=== PATIENT | male | born 1970 | race Caucasian/White ===

== ENCOUNTER 2017-11-17 13:12 | Inpatient (IN) | payer OTHER ==
[2017-11-17 14:56] VITALS: BMI 20.9
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
[2017-11-17] MEDS ORDERED: MAGNESIUM CITRATE 300 ML BOTTLE PO PRN (20:42)
[2017-11-17] MEDS ORDERED: P-EPHED 60MG/TRIPROLIDI 2.5MG TABLET PO PRN (20:42)
[2017-11-17] MEDS ORDERED: MAG HYDROX/AL HYDROX/SIMETH 30 ML UNIT-DOSE CUP PO PRN (20:42)
[2017-11-17] MEDS ORDERED: LOPERAMIDE HCL 2 MG CAPSULE PO PRN (20:42)
[2017-11-17] MEDS ORDERED: ALBUTEROL SO4 2.5/IPRATROPIUM 0.5 INH SOL 3 ML VIAL.NEB. NEB PRN (20:42)
[2017-11-17] MEDS ORDERED: MENTHOL/PHENOL 1 EACH UD MM PRN (20:42)
[2017-11-17] MEDS ORDERED: MAGNESIUM HYDROX 2400MG/30ML ORAL SUSPENSION 30 ML CUP PO PRN (20:42)
[2017-11-17] MEDS ORDERED: chlordiazePOXIDE HCL 25 MG CAPSULE PO PRN (20:42)
[2017-11-17] MEDS ORDERED: NICOTINE POLACRILEX 4 MG GUM BC PRN (20:42)
[2017-11-17] MEDS ORDERED: chlordiazePOXIDE HCL 25 MG CAPSULE PO ONE (20:42)
[2017-11-17] MEDS ORDERED: hydrOXYzine PAMOATE 50 MG CAPSULE (FP) PO PRN (20:42)
[2017-11-17] MEDS ORDERED: METHADONE HCL 10 MG TABLET (FOR DETOX USE ONLY) PO ONE ×2 (20:42→23:00)
[2017-11-17] MEDS ORDERED: MELATONIN 5 MG TABLETS PO PRN (22:00)
[2017-11-17] MEDS: THIAMINE HCL 100 MG TABLET (FP) PO SCH (22:42)
[2017-11-17] MEDS: chlordiazePOXIDE HCL 25 MG CAPSULE PO SCH (22:43)
[2017-11-17] MEDS: DIVALPROEX SODIUM 500 MG TABLET E.C. PO SCH (22:43)
[2017-11-17] MEDS: amLODIPine BESYLATE 5 MG TABLET (FP) PO SCH (22:43)
[2017-11-17] MEDS: IBUPROFEN 400 MG TABLET (FP) PO PRN (22:44)
[2017-11-18] MEDS: chlordiazePOXIDE HCL 25 MG CAPSULE PO SCH ×4 (04:49→23:21)
[2017-11-18] MEDS: IBUPROFEN 400 MG TABLET (FP) PO PRN ×3 (04:50→19:01)
[2017-11-18 05:14] LABS: URINE APPEARANCE CLEAR; URINE BILIRUBIN NEGATIVE (<2.0 mg/dL); URINE COLOR YELLOW; URINE GLUCOSE (UA) NEGATIVE (NEGATIVE); URINE KETONE 1+ (NEGATIVE); URINE LEUK ESTERASE NEGATIVE (NEGATIVE); URINE NITRITE NEGATIVE (NEGATIVE); URINE PROTEIN NEGATIVE (NEGATIVE); URINE UROBILINOGEN NEGATIVE mg/dL (0.2-1.0)
[2017-11-18 09:53] LABS: ALBUMIN 3.4 g/dl (3.4-5.0); ANION GAP 4 (8-16); CALCIUM 8.5 mg/dL (8.5-10.1); CHLORIDE 109 mmol/L (98-107); CO2 31 mmol/L (21-32); GLUCOSE,RANDOM 81 mg/dL (74-106); POTASSIUM 4.4 mmol/L (3.5-5.1); SODIUM 144 mmol/L (136-145)
[2017-11-18 09:56] LABS: HEMATOCRIT 39.8 % (35.4-49); HEMOGLOBIN 13.7 GM/dL (11.7-16.9); MCH 31.7 pg (25.7-33.7); MCHC 34.4 g/dl (32.0-35.9); MEAN CELL VOLUME 92.1 fl (80-96); MEAN PLT VOLUME 9.2 fl (7.5-11.1); PLATELET COUNT 211 K/MM3 (134-434); RBC 4.32 M/mm3 (4.00-5.60); RDW 13.2 % (11.9-15.9); WHITE BLOOD COUNT 5.8 K/mm3 (4.0-10.0)
[2017-11-18 09:58] LABS: ALK PHOS 73 U/L (45-117); BILIRUBIN,TOTAL 0.2 mg/dL (0.2-1.0); BLOOD UREA NITROGEN 18 mg/dL (7-18); CREATININE 0.9 mg/dL (0.7-1.3); SGOT/AST 11 U/L (15-37); SGPT/ALT 16 U/L (12-78); TOT PROT 5.9 g/dl (6.4-8.2)
[2017-11-18] MEDS ORDERED: METHADONE HCL 10 MG TABLET (FOR DETOX USE ONLY) PO SCH (10:00)
[2017-11-18] MEDS: DIVALPROEX SODIUM 500 MG TABLET E.C. PO SCH ×2 (10:18→22:40)
[2017-11-18] MEDS: amLODIPine BESYLATE 5 MG TABLET (FP) PO SCH ×2 (10:18→22:41)
[2017-11-18] MEDS: NICOTINE 21 MG/24 HOURS TOPICAL PATCH TD SCH (10:19)
[2017-11-18] MEDS: PRENATAL VITAMINS W/ FOLIC ACID TABLET (FP) PO SCH (10:19)
--- NOTE | 2017-11-18 11:47 | PN ---
[facility] Progress Note Note: s/p witnessed fall by staff. Patient c/o of vertigo, and felt his leg buckle and landed on his right knee. Vital Signs Temperature 97.9 F 11/18/17 11:38 Pulse Rate 70 11/18/17 11:38 Respiratory Rate 18 11/18/17 11:38 Blood Pressure 100/60 11/18/17 11:38 O2 Sat by Pulse Oximetry (%) Patient AOX3 s1, s3, no adventitious breath sounds s1 s2 no JVD skin intact, no erythema or lesion Full ROM, + tenderness on right patella, no erythema or joint effusion, ambulating in the unit with cane - witnessed fall Plan: fall protocol #2 Increase fluids xray b/t knee Ibuprofen PRN for pain continue to monitor
--- NOTE | 2017-11-18 12:49 | EKG ---
Test Reason : Blood Pressure : / mmHG Vent. Rate : 061 BPM Atrial Rate : 061 BPM P-R Int : 110 ms QRS Dur : 104 ms QT Int : 402 ms P-R-T Axes : 025 067 054 degrees QTc Int : 404 ms SINUS RHYTHM WITH SHORT MI EARLY REPOLARIZATION OTHERWISE NORMAL ECG WHEN COMPARED WITH ECG OF 17-NOV-2017 21:53, NO SIGNIFICANT CHANGE WAS FOUND Confirmed by JACQUES PALMA MD ([id number]) on 11/18/2017 12:49:06 PM Referred By: Confirmed By:JACQUES PALMA MD
--- NOTE | 2017-11-18 12:50 | EKG ---
Test Reason : Blood Pressure : / mmHG Vent. Rate : 069 BPM Atrial Rate : 069 BPM P-R Int : 102 ms QRS Dur : 092 ms QT Int : 372 ms P-R-T Axes : 015 069 059 degrees QTc Int : 398 ms SINUS RHYTHM WITH SHORT MN MODERATE VOLTAGE CRITERIA FOR LVH, MAY BE NORMAL VARIANT ST ELEVATION, CONSIDER EARLY REPOLARIZATION BORDERLINE ECG NO PREVIOUS ECGS AVAILABLE Confirmed by MINERVA PIERCE, JACQUES ([id number]) on 11/18/2017 12:50:14 PM Referred By: Confirmed By:JACQUES PALMA MD
--- NOTE | 2017-11-18 15:07 | CONSULT ---
[facility] Psychiatric Consult - Data Date of interview: 11/18/17 Admission source: [facility] Identifying data: This is 47 years old male, ambulating with cane, , father of six, homeless, on SSD with history of nicotine, alcohol, crack / cocaine, heroin (paranasal) dependence is here reporting withdrawal symptoms and seeking detox, this is one of multiple admissions. Patient has mutiple medical issues. Substance Abuse History: Smoking history: Current every day smoker. Have you smoked in the past 12 months: Yes. Aproximately how many cigarettes per day: 60. Hx Chewing Tobacco Use: No. Initiated information on smoking cessation: Yes. 'Breaking Loose' booklet given: 11/17/17. - Substance & Tx. History. Hx Alcohol Use: Yes. Hx Substance Use: Yes. Substance Use Type: Alcohol, Cocaine , Heroin. Hx Substance Use Treatment: Yes ( Last detox at [facility] six months ago). - Substances Abused. Alcohol. Route: Oral. Frequency: Daily. Amount used: 2 pints vodka. Age of first use: 11. Date of Last Use: 11/16/17. Heroin. Route: Inhalation. Frequency: Daily. Amount used: 30-40 bags. Age of first use: 11. Date of Last Use: 11/16/17. Cocaine. Route: Smoking. Frequency: Daily. Amount used: $100-&500. Age of first use: 11. Date of Last Use: 11/16/17 Medical History: Asthma, DM-II, Epilepsy, HTN Psychiatric History: As per computer pavel has history of Schizophrenia, Bipolar Disorder, reports history of psychiatric hospitalizations, does not remember where and when, reports currently stable on: Depakote 500mg po bid. Prozac 20mg poqd. Benzthropine 1mg po bid. Risperdal 1mg po bid. Patient reports suicidal attaempt at age [age] years old by supeficially cutting his wrist , no stitches applyed, reports no suicidal history since then. Physical/Sexual Abuse/Trauma History: Denies Additional Comment: Depakote 500mg po bid. Prozac 20mg poqd. Benzthropine 1mg po bid. Risperdal 1mg po bid Mental Status Exam - Mental Status Exam Alert and Oriented to: Person Cognitive Function: Fair Patient Appearance: Unkempt Mood: Apprehensive Affect: Mood Congruent Patient Behavior: Cooperative Speech Pattern: Appropriate Voice Loudness: Mildly Soft/Quiet Thought Process: Circumstantial, Goal Oriented Thought Disorder: Being Controlled Hallucinations: Denies Suicidal Ideation: Denies Homicidal Ideation: Denies Insight/Judgement: Fair Sleep: Difficulty falling asleep Appetite: Weight gain Muscle strength/Tone: Mild Hypotonicity Gait/Station: Shuffling Additional Comments: Depakote 500mg po bid. Prozac 20mg poqd. Benzthropine 1mg po bid. Risperdal 1mg po bid Psychiatric Findings - Problem List ([place] 1, 2,3) (1) Bipolar disorder with psychotic features Current Visit: Yes Status: Acute (2) Schizophrenia Current Visit: Yes Status: Acute (3) Alcohol dependence Current Visit: Yes Status: Acute (4) Asthma Current Visit: Yes Status: Acute (5) Cocaine dependence Current Visit: Yes Status: Acute (6) Nicotine dependence Current Visit: Yes Status: Acute Qualifiers: Nicotine product type: cigarettes (7) Opioid dependence with withdrawal Current Visit: Yes Status: Acute (8) Diabetes mellitus Current Visit: Yes Status: Chronic Qualifiers: Diabetes mellitus type: type 2 Diabetes mellitus shelter insulin use: unspecified shelter insulin use status (9) Epilepsy Current Visit: Yes Status: Chronic Qualifiers: Epilepsy type: unspecified (10) Hypertension Current Visit: Yes Status: Chronic Qualifiers: Hypertension type: essential hypertension Qualified Code(s): I10 - Essential (primary) hypertension - Initial Treatment Plan Initial Treatment Plan: Depakote 500mg po bid. Prozac 20mg poqd. Benzthropine 1mg po bid. Risperdal 1mg po bid
[2017-11-18] MEDS: risperiDONE 1 MG TABLET (FP) PO SCH ×2 (15:19→22:41)
[2017-11-18] MEDS: FLUoxetine HCL 20 MG CAPSULE (FP) PO SCH (15:19)
--- NOTE | 2017-11-18 16:11 | PN ---
S CIWA - CIWA Score Nausea/Vomitin Muscle Tremors: 2 Anxiety: 3 Agitation: 3 Paroxysmal Sweats: 2 Orientation: 0-Oriented Tacttile Disturbances: 0-None Auditory Disturbances: 0-None Visual Disturbances: 1-Very Mild Sensitivity Headache: 0-None Present CIWA-Ar Total Score: 13 BHS Progress Note (SOAP) Subjective: interrupted sleep, body aches, chills, sweats Objective: 11/18/17 16:10 Vital Signs Temperature 97.4 F L 11/18/17 15:38 Pulse Rate 64 11/18/17 15:38 Respiratory Rate 18 11/18/17 15:38 Blood Pressure 108/74 11/18/17 15:38 O2 Sat by Pulse Oximetry (%) Laboratory Last Values WBC 5.8 K/mm3 (4.0-10.0) 11/18/17 07:30 RBC 4.32 M/mm3 (4.00-5.60) 11/18/17 07:30 Hgb 13.7 GM/dL (11.7-16.9) 11/18/17 07:30 Hct 39.8 % (35.4-49) 11/18/17 07:30 MCV 92.1 fl (80-96) 11/18/17 07:30 MCH 31.7 pg (25.7-33.7) 11/18/17 07:30 MCHC 34.4 g/dl (32.0-35.9) 11/18/17 07:30 RDW 13.2 % (11.9-15.9) 11/18/17 07:30 Plt Count 211 K/MM3 (134-434) 11/18/17 07:30 MPV 9.2 fl (7.5-11.1) 11/18/17 07:30 Sodium 144 mmol/L (136-145) 11/18/17 07:30 Potassium 4.4 mmol/L (3.5-5.1) 11/18/17 07:30 Chloride 109 mmol/L (98-107) H 11/18/17 07:30 Carbon Dioxide 31 mmol/L (21-32) 11/18/17 07:30 Anion Gap 4 (8-16) L 11/18/17 07:30 BUN 18 mg/dL (7-18) 11/18/17 07:30 Creatinine 0.9 mg/dL (0.7-1.3) 11/18/17 07:30 Creat Clearance w eGFR > 60 (>60) 11/18/17 07:30 POC Glucometer 92 UNITS (80-120) 11/18/17 11:50 Random Glucose 81 mg/dL (74-106) 11/18/17 07:30 Calcium 8.5 mg/dL (8.5-10.1) 11/18/17 07:30 Total Bilirubin 0.2 mg/dL (0.2-1.0) 11/18/17 07:30 AST 11 U/L (15-37) L 11/18/17 07:30 ALT 16 U/L (12-78) 11/18/17 07:30 Alkaline Phosphatase 73 U/L (45-117) 11/18/17 07:30 Total Protein 5.9 g/dl (6.4-8.2) L 11/18/17 07:30 Albumin 3.4 g/dl (3.4-5.0) 11/18/17 07:30 Urine Color Yellow 11/17/17 23:23 Urine Appearance Clear 11/17/17 23:23 Urine pH 7.0 (5.0-8.0) 11/17/17 23:23 Ur Specific [place] 1.021 (1.001-1.035) 11/17/17 23:23 Urine Protein Negative (NEGATIVE) 11/17/17 23:23 Urine Glucose (UA) Negative (NEGATIVE) 11/17/17 23:23 Urine Ketones 1+ (NEGATIVE) H 11/17/17 23:23 Urine Blood Negative (NEGATIVE) 11/17/17 23:23 Urine Nitrite Negative (NEGATIVE) 11/17/17 23:23 Urine Bilirubin Negative (<2.0 mg/dL) 11/17/17 23:23 Urine Urobilinogen Negative mg/dL (0.2-1.0) 11/17/17 23:23 Ur Leukocyte Esterase Negative (NEGATIVE) 11/17/17 23:23 Valproic Acid 52.2 ug/ml (50-100) 11/18/17 07:30 RPR Titer Nonreactive (NONREACTIVE) 11/18/17 07:30 HIV 1&2 Antibody Screen Negative 11/18/17 07:30 HIV P24 Antigen Negative 11/18/17 07:30 Aox3 no distress ambulating with cane in the unit Assessment: 11/18/17 16:11 withdrawal symptoms Plan: increase fluids continue detox continue to monitor
--- NOTE | 2017-11-18 17:49 | PN ---
[facility] Progress Note Note: pt was seen today for a fall. pt states his leg buckled and he slipped and fell on the floor. pt denies hitting his head. he only hurt his lower back. Back assessed no bruising, no skin break. fall protocol eimplemented. motrin 800mg and lidocaine patch ordered.
[2017-11-18] MEDS: LIDOCAINE 5% TOPICAL PATCH TP SCH (18:39)
[2017-11-18] MEDS ORDERED: DIVALPROEX SODIUM 500 MG TABLET E.C. PO SCH (22:00)
[2017-11-18] MEDS: LIDOCAINE PATCH REMOVAL MC SCH (22:40)
[2017-11-18] MEDS: BENZTROPINE MESYLATE 1 MG TABLET (FP) PO SCH (22:40)
[2017-11-18] MEDS: THIAMINE HCL 100 MG TABLET (FP) PO SCH (22:42)
[2017-11-19] MEDS: chlordiazePOXIDE HCL 25 MG CAPSULE PO SCH ×2 (05:50→10:33)
[2017-11-19] MEDS ORDERED: METHADONE HCL 5 MG TABLET (FOR DETOX USE ONLY) PO SCH (10:00)
[2017-11-19] MEDS: FLUoxetine HCL 20 MG CAPSULE (FP) PO SCH (10:32)
[2017-11-19] MEDS: PRENATAL VITAMINS W/ FOLIC ACID TABLET (FP) PO SCH (10:32)
[2017-11-19] MEDS: amLODIPine BESYLATE 5 MG TABLET (FP) PO SCH ×2 (10:32→22:25)
[2017-11-19] MEDS: DIVALPROEX SODIUM 500 MG TABLET E.C. PO SCH (10:33)
[2017-11-19] MEDS: BENZTROPINE MESYLATE 1 MG TABLET (FP) PO SCH (10:33)
[2017-11-19] MEDS: risperiDONE 1 MG TABLET (FP) PO SCH (10:33)
[2017-11-19] MEDS: NICOTINE 21 MG/24 HOURS TOPICAL PATCH TD SCH (10:33)
[2017-11-19] MEDS: LIDOCAINE 5% TOPICAL PATCH TP SCH (10:36)
--- NOTE | 2017-11-19 13:04 | PN ---
[facility] CIWA - CIWA Score Nausea/Vomitin-No Nausea/No Vomiting Muscle Tremors: None Anxiety: 0-No Anxiety, at Ease Agitation: 0-Normal Activity Paroxysmal Sweats: No Perspiration Orientation: 0-Oriented Tacttile Disturbances: 0-None Auditory Disturbances: 0-None Visual Disturbances: 0-None Headache: 0-None Present CIWA-Ar Total Score: 0 S COWS - Scale Resting Pulse: 0= [place] 80 or Below Sweatin= No chills or Flushing Restless Observation: 0= Sits Still Pupil Size: 0= Normal to Room Light Bone or Joint Aches: 0= None Runny Nose/ Eye Tearin= None GI Upset > 30mins: 0= None Tremor Observation of Outstretched Hands: 0= None Yawning Observation: 0= None Anxiety or Irritability: 0= None Goose Flesh Skin: 0=Smooth Skin COWS Score: 0 [facility] Progress Note (SOAP) Subjective: pt had an unwitnessed fall in the bathroom, says his feet buckled under him. Pt denies hitting his head on floor. Pt had similar episode yesterday- was seen in ER, negative evaluation, and sent back. Pt sitting on edge of bed, noted to be lethargic, nodding off and looking sedated. VS WNL, f/s 120 Objective: 11/19/17 13:02 Vital Signs - 24 hr 11/18/17 11/18/17 11/18/17 13:18 13:38 15:38 Temperature 97.0 F L 97.4 F L 97.4 F L Pulse Rate 65 74 64 Respiratory 18 18 18 Rate Blood Pressure 102/63 98/65 108/74 11/18/17 11/18/17 11/18/17 16:45 18:32 18:45 Temperature 97.1 F L 97 F L 97.4 F L Pulse Rate 68 69 70 Respiratory 18 18 16 Rate Blood Pressure 102/71 101/64 107/72 11/19/17 11/19/17 11/19/17 03:01 03:30 04:45 Temperature 96.6 F L 96.6 F L Pulse Rate 64 73 Respiratory 18 18 18 Rate Blood Pressure 115/73 111/77 11/19/17 11/19/17 11/19/17 06:45 08:45 09:37 Temperature 96.6 F L 98.1 F 95.5 F L Pulse Rate 73 73 73 Respiratory 18 18 18 Rate Blood Pressure 111/77 107/73 115/75 Laboratory Tests 11/17/17 11/17/17 11/18/17 22:25 23:23 04:49 WBC RBC Hgb Hct MCV MCH MCHC RDW Plt Count MPV Sodium Potassium Chloride Carbon Dioxide Anion Gap BUN Creatinine Creat Clearance w eGFR POC Glucometer 93 119 Random Glucose Calcium Total Bilirubin AST ALT Alkaline Phosphatase Total Protein Albumin Urine Color Yellow Urine Appearance Clear Urine pH 7.0 Ur Specific [place] 1.021 Urine Protein Negative Urine Glucose (UA) Negative Urine Ketones 1+ H Urine Blood Negative Urine Nitrite Negative Urine Bilirubin Negative Urine Urobilinogen Negative Ur Leukocyte Esterase Negative Valproic Acid RPR Titer HIV 1&2 Antibody Screen HIV P24 Antigen 11/18/17 11/18/17 11/18/17 07:30 07:30 07:30 WBC 5.8 RBC 4.32 Hgb 13.7 Hct 39.8 MCV 92.1 MCH 31.7 MCHC 34.4 RDW 13.2 Plt Count 211 MPV 9.2 Sodium Potassium Chloride Carbon Dioxide Anion Gap BUN Creatinine Creat Clearance w eGFR POC Glucometer Random Glucose Calcium Total Bilirubin AST ALT Alkaline Phosphatase Total Protein Albumin Urine Color Urine Appearance Urine pH Ur Specific [place] Urine Protein Urine Glucose (UA) Urine Ketones Urine Blood Urine Nitrite Urine Bilirubin Urine Urobilinogen Ur Leukocyte Esterase Valproic Acid 52.2 RPR Titer HIV 1&2 Antibody Screen Negative HIV P24 Antigen Negative 11/18/17 11/18/17 11/18/17 07:30 07:30 11:50 WBC RBC Hgb Hct MCV MCH MCHC RDW Plt Count MPV Sodium 144 Potassium 4.4 Chloride 109 H Carbon Dioxide 31 Anion Gap 4 L BUN 18 Creatinine 0.9 Creat Clearance w eGFR > 60 POC Glucometer 92 Random Glucose 81 Calcium 8.5 Total Bilirubin 0.2 AST 11 L ALT 16 Alkaline Phosphatase 73 Total Protein 5.9 L Albumin 3.4 Urine Color Urine Appearance Urine pH Ur Specific [place] Urine Protein Urine Glucose (UA) Urine Ketones Urine Blood Urine Nitrite Urine Bilirubin Urine Urobilinogen Ur Leukocyte Esterase Valproic Acid RPR Titer Nonreactive HIV 1&2 Antibody Screen HIV P24 Antigen 11/18/17 11/19/17 11/19/17 16:17 05:50 07:40 WBC RBC Hgb Hct MCV MCH MCHC RDW Plt Count MPV Sodium Potassium Chloride Carbon Dioxide Anion Gap BUN Creatinine Creat Clearance w eGFR POC Glucometer 109 78 Random Glucose Calcium Total Bilirubin AST ALT Alkaline Phosphatase Total Protein Albumin Urine Color Urine Appearance Urine pH Ur Specific [place] Urine Protein Urine Glucose (UA) Urine Ketones Urine Blood Urine Nitrite Urine Bilirubin Urine Urobilinogen Ur Leukocyte Esterase Valproic Acid 46.0 L RPR Titer HIV 1&2 Antibody Screen HIV P24 Antigen 11/19/17 12:40 WBC RBC Hgb Hct MCV MCH MCHC RDW Plt Count MPV Sodium Potassium Chloride Carbon Dioxide Anion Gap BUN Creatinine Creat Clearance w eGFR POC Glucometer 121 Random Glucose Calcium Total Bilirubin AST ALT Alkaline Phosphatase Total Protein Albumin Urine Color Urine Appearance Urine pH Ur Specific [place] Urine Protein Urine Glucose (UA) Urine Ketones Urine Blood Urine Nitrite Urine Bilirubin Urine Urobilinogen Ur Leukocyte Esterase Valproic Acid RPR Titer HIV 1&2 Antibody Screen HIV P24 Antigen labs and VS WNL lungs clear heart RRR oropharynx- clear pupils- small MS exam- remembers 04/21, not steady on feet when asked to stand 11/19/17 13:03 Assessment: 11/19/17 13:04 Pt on multiple meds that can cause oversedation: respirdal and cogentin, prozasc , depakote and librium and methadone and norvasc for BP Plan: Will stop librium 25mg doses for today, prn librium if needed and resume detox with lower doses tomorrow Stop methadone tomorrow and if needed will call provider for a dose in Wednesday AM Continue methadone detox Wednesday. providers notified re daniel and risperdamariza.
--- NOTE | 2017-11-19 17:06 | PN ---
[facility] Progress Note Note: Patient fell today and was evaluate by Corwin and recommended for patient to go to the ED for an eval. Fall Protocol #1 Continue to monitor
[2017-11-19] MEDS: guaiFENesin/D-METHORPHAN HB 10 ML UNIT-DOSE CUPS PO PRN (18:58)
--- NOTE | 2017-11-19 20:05 | PN ---
[facility] Progress Note Note: Psychiatry Attending's delayed note (follow up) : Patient was examined by this policy writer this morning. At the request of medical BUNDLE HELPER Jimmie, concerned by sedation + falls. Chart reviewed.Dr Dooley's note of 11/18/17 : read and appreciated. Mr Calix was interviewed at bedside.Medical students in attendance. Noted as slow,unsteady,slurred and partially disoriented to time. Ambulates with a cane.Able to perform ADLs independently. Follows verbal redirections without difficulty.Much improved at this time. Impression : Sedation is likely secondary to medication regimen. Interventions : Falls precautions.Frequent rounds.Wheelchair provided to the patient. Instructed to summon staff assistance for transfer to bed.Patient agrees. Monitor vitals.Medications (depakote,risperdal,cogentin) : held until further orders. Revisit detoxification protocol and adjust doses.Psychiatry will follow in AM.
[2017-11-19] MEDS: LIDOCAINE PATCH REMOVAL MC SCH (22:25)
[2017-11-19] MEDS: THIAMINE HCL 100 MG TABLET (FP) PO SCH (22:25)
[2017-11-19] MEDS: IBUPROFEN 400 MG TABLET (FP) PO PRN (22:27)
[2017-11-19] MEDS: chlordiazePOXIDE 5 MG CAPSULE PO SCH (22:32)
[2017-11-20] MEDS: IBUPROFEN 400 MG TABLET (FP) PO PRN ×3 (03:42→22:28)
[2017-11-20] MEDS: chlordiazePOXIDE 5 MG CAPSULE PO SCH ×3 (06:05→17:21)
[2017-11-20] MEDS: guaiFENesin/D-METHORPHAN HB 10 ML UNIT-DOSE CUPS PO PRN (06:09)
[2017-11-20] MEDS: LIDOCAINE 5% TOPICAL PATCH TP SCH (10:20)
[2017-11-20] MEDS: FLUoxetine HCL 20 MG CAPSULE (FP) PO SCH (10:20)
[2017-11-20] MEDS: amLODIPine BESYLATE 5 MG TABLET (FP) PO SCH ×2 (10:20→22:26)
[2017-11-20] MEDS: NICOTINE 21 MG/24 HOURS TOPICAL PATCH TD SCH (10:20)
[2017-11-20] MEDS: PRENATAL VITAMINS W/ FOLIC ACID TABLET (FP) PO SCH (10:20)
[2017-11-20] MEDS: DIVALPROEX SODIUM 500 MG TABLET E.C. PO SCH ×2 (12:35→22:26)
[2017-11-20] MEDS ORDERED: ONDANSETRON *ODT* 4 MG TABLET SL PRN (14:45)
--- NOTE | 2017-11-20 14:52 | PN ---
[facility] Progress Note (SOAP) Subjective: Tremors, Hot / Cold Sensations, Vomiting, Diarrhea, Sweating, Anxious. Objective: PATIENT A & O X 3, OBSERVED MOVING ABOUT UNIT IN A WHEELCHAIR. NO ACUTE DISTRESS. 11/20/17 14:51 Vital Signs Temperature 98.6 F 11/20/17 14:22 Pulse Rate 68 11/20/17 14:22 Respiratory Rate 18 11/20/17 14:22 Blood Pressure 110/68 11/20/17 14:22 O2 Sat by Pulse Oximetry (%) Laboratory Tests 11/17/17 11/17/17 11/18/17 22:25 23:23 04:49 WBC RBC Hgb Hct MCV MCH MCHC RDW Plt Count MPV Sodium Potassium Chloride Carbon Dioxide Anion Gap BUN Creatinine Creat Clearance w eGFR POC Glucometer 93 119 Random Glucose Calcium Total Bilirubin AST ALT Alkaline Phosphatase Total Protein Albumin Urine Color Yellow Urine Appearance Clear Urine pH 7.0 Ur Specific [place] 1.021 Urine Protein Negative Urine Glucose (UA) Negative Urine Ketones 1+ H Urine Blood Negative Urine Nitrite Negative Urine Bilirubin Negative Urine Urobilinogen Negative Ur Leukocyte Esterase Negative Valproic Acid RPR Titer HIV 1&2 Antibody Screen HIV P24 Antigen 11/18/17 11/18/17 11/18/17 07:30 07:30 07:30 WBC 5.8 RBC 4.32 Hgb 13.7 Hct 39.8 MCV 92.1 MCH 31.7 MCHC 34.4 RDW 13.2 Plt Count 211 MPV 9.2 Sodium Potassium Chloride Carbon Dioxide Anion Gap BUN Creatinine Creat Clearance w eGFR POC Glucometer Random Glucose Calcium Total Bilirubin AST ALT Alkaline Phosphatase Total Protein Albumin Urine Color Urine Appearance Urine pH Ur Specific [place] Urine Protein Urine Glucose (UA) Urine Ketones Urine Blood Urine Nitrite Urine Bilirubin Urine Urobilinogen Ur Leukocyte Esterase Valproic Acid 52.2 RPR Titer HIV 1&2 Antibody Screen Negative HIV P24 Antigen Negative 11/18/17 11/18/17 11/18/17 07:30 07:30 11:50 WBC RBC Hgb Hct MCV MCH MCHC RDW Plt Count MPV Sodium 144 Potassium 4.4 Chloride 109 H Carbon Dioxide 31 Anion Gap 4 L BUN 18 Creatinine 0.9 Creat Clearance w eGFR > 60 POC Glucometer 92 Random Glucose 81 Calcium 8.5 Total Bilirubin 0.2 AST 11 L ALT 16 Alkaline Phosphatase 73 Total Protein 5.9 L Albumin 3.4 Urine Color Urine Appearance Urine pH Ur Specific [place] Urine Protein Urine Glucose (UA) Urine Ketones Urine Blood Urine Nitrite Urine Bilirubin Urine Urobilinogen Ur Leukocyte Esterase Valproic Acid RPR Titer Nonreactive HIV 1&2 Antibody Screen HIV P24 Antigen 11/18/17 11/19/17 11/19/17 16:17 05:50 07:40 WBC RBC Hgb Hct MCV MCH MCHC RDW Plt Count MPV Sodium Potassium Chloride Carbon Dioxide Anion Gap BUN Creatinine Creat Clearance w eGFR POC Glucometer 109 78 Random Glucose Calcium Total Bilirubin AST ALT Alkaline Phosphatase Total Protein Albumin Urine Color Urine Appearance Urine pH Ur Specific [place] Urine Protein Urine Glucose (UA) Urine Ketones Urine Blood Urine Nitrite Urine Bilirubin Urine Urobilinogen Ur Leukocyte Esterase Valproic Acid 46.0 L RPR Titer HIV 1&2 Antibody Screen HIV P24 Antigen 11/19/17 11/19/17 11/20/17 12:40 16:14 06:06 WBC RBC Hgb Hct MCV MCH MCHC RDW Plt Count MPV Sodium Potassium Chloride Carbon Dioxide Anion Gap BUN Creatinine Creat Clearance w eGFR POC Glucometer 121 80 98 Random Glucose Calcium Total Bilirubin AST ALT Alkaline Phosphatase Total Protein Albumin Urine Color Urine Appearance Urine pH Ur Specific [place] Urine Protein Urine Glucose (UA) Urine Ketones Urine Blood Urine Nitrite Urine Bilirubin Urine Urobilinogen Ur Leukocyte Esterase Valproic Acid RPR Titer HIV 1&2 Antibody Screen HIV P24 Antigen LABS NOTED. Assessment: 11/20/17 14:52 WITHDRAWAL SYMPTOMS. Plan: CONTINUE DETOX. INCREASE DAILY PO FLUID INTAKE. PRN ZOFRAN SL FOR VOMITING. PRN IMMODIUM PO FOR DIARRHEA.
--- NOTE | 2017-11-20 19:30 | PN ---
[facility] Progress Note Note: Psychiatry Attending's note (follow up) : Met with patient. Doing much better.Visible on the unit. Moves around in wheelchair.Improved cognition. Gait is steadier.Better balance.Good hygiene. Mr Calix is conversant.Makes needs known. Coherent and goal-directed.Well controlled. No acting out.Normal vitals.
[2017-11-20] MEDS: THIAMINE HCL 100 MG TABLET (FP) PO SCH (22:26)
[2017-11-20] MEDS: chlordiazePOXIDE HCL 10 MG CAPSULE PO SCH (22:26)
[2017-11-20] MEDS: LIDOCAINE PATCH REMOVAL MC SCH (22:27)
[2017-11-21] MEDS: chlordiazePOXIDE HCL 10 MG CAPSULE PO SCH ×3 (06:37→18:00)
[2017-11-21] MEDS ORDERED: METHADONE HCL 10 MG TABLET (FOR DETOX USE ONLY) PO SCH (10:00)
[2017-11-21] MEDS: DIVALPROEX SODIUM 500 MG TABLET E.C. PO SCH ×2 (10:12→22:11)
[2017-11-21] MEDS: amLODIPine BESYLATE 5 MG TABLET (FP) PO SCH ×2 (10:12→22:12)
[2017-11-21] MEDS: FLUoxetine HCL 20 MG CAPSULE (FP) PO SCH (10:12)
[2017-11-21] MEDS: PRENATAL VITAMINS W/ FOLIC ACID TABLET (FP) PO SCH (10:14)
[2017-11-21] MEDS: NICOTINE 21 MG/24 HOURS TOPICAL PATCH TD SCH (10:14)
[2017-11-21] MEDS: LIDOCAINE 5% TOPICAL PATCH TP SCH (10:14)
[2017-11-21] MEDS: IBUPROFEN 400 MG TABLET (FP) PO PRN ×2 (10:16→19:35)
--- NOTE | 2017-11-21 14:00 | PN ---
S Progress Note (SOAP) Subjective: Agitated, anxious, demanding to go to rehab today. Patient left unit via wheelchair stating he wants to leave today because no rehab beds available and was escorted back to unit by security. Later agreed to wait until rehab bed available tomorrow or by Wednesday. Objective: 11/21/17 13:57 Last Vital Signs Temp Pulse Resp BP Pulse Ox 96.7 F L 79 18 145/81 11/21/17 10:29 11/21/17 10:29 11/21/17 10:29 11/21/17 10:29 Laboratory Tests 11/17/17 11/17/17 11/18/17 22:25 23:23 04:49 WBC RBC Hgb Hct MCV MCH MCHC RDW Plt Count MPV Sodium Potassium Chloride Carbon Dioxide Anion Gap BUN Creatinine Creat Clearance w eGFR POC Glucometer 93 119 Random Glucose Calcium Total Bilirubin AST ALT Alkaline Phosphatase Total Protein Albumin Urine Color Yellow Urine Appearance Clear Urine pH 7.0 Ur Specific [place] 1.021 Urine Protein Negative Urine Glucose (UA) Negative Urine Ketones 1+ H Urine Blood Negative Urine Nitrite Negative Urine Bilirubin Negative Urine Urobilinogen Negative Ur Leukocyte Esterase Negative Valproic Acid RPR Titer HIV 1&2 Antibody Screen HIV P24 Antigen 11/18/17 11/18/17 11/18/17 07:30 07:30 07:30 WBC 5.8 RBC 4.32 Hgb 13.7 Hct 39.8 MCV 92.1 MCH 31.7 MCHC 34.4 RDW 13.2 Plt Count 211 MPV 9.2 Sodium Potassium Chloride Carbon Dioxide Anion Gap BUN Creatinine Creat Clearance w eGFR POC Glucometer Random Glucose Calcium Total Bilirubin AST ALT Alkaline Phosphatase Total Protein Albumin Urine Color Urine Appearance Urine pH Ur Specific [place] Urine Protein Urine Glucose (UA) Urine Ketones Urine Blood Urine Nitrite Urine Bilirubin Urine Urobilinogen Ur Leukocyte Esterase Valproic Acid 52.2 RPR Titer HIV 1&2 Antibody Screen Negative HIV P24 Antigen Negative 11/18/17 11/18/17 11/18/17 07:30 07:30 11:50 WBC RBC Hgb Hct MCV MCH MCHC RDW Plt Count MPV Sodium 144 Potassium 4.4 Chloride 109 H Carbon Dioxide 31 Anion Gap 4 L BUN 18 Creatinine 0.9 Creat Clearance w eGFR > 60 POC Glucometer 92 Random Glucose 81 Calcium 8.5 Total Bilirubin 0.2 AST 11 L ALT 16 Alkaline Phosphatase 73 Total Protein 5.9 L Albumin 3.4 Urine Color Urine Appearance Urine pH Ur Specific [place] Urine Protein Urine Glucose (UA) Urine Ketones Urine Blood Urine Nitrite Urine Bilirubin Urine Urobilinogen Ur Leukocyte Esterase Valproic Acid RPR Titer Nonreactive HIV 1&2 Antibody Screen HIV P24 Antigen 11/18/17 11/19/17 11/19/17 16:17 05:50 07:40 WBC RBC Hgb Hct MCV MCH MCHC RDW Plt Count MPV Sodium Potassium Chloride Carbon Dioxide Anion Gap BUN Creatinine Creat Clearance w eGFR POC Glucometer 109 78 Random Glucose Calcium Total Bilirubin AST ALT Alkaline Phosphatase Total Protein Albumin Urine Color Urine Appearance Urine pH Ur Specific [place] Urine Protein Urine Glucose (UA) Urine Ketones Urine Blood Urine Nitrite Urine Bilirubin Urine Urobilinogen Ur Leukocyte Esterase Valproic Acid 46.0 L RPR Titer HIV 1&2 Antibody Screen HIV P24 Antigen 11/19/17 11/19/17 11/20/17 12:40 16:14 06:06 WBC RBC Hgb Hct MCV MCH MCHC RDW Plt Count MPV Sodium Potassium Chloride Carbon Dioxide Anion Gap BUN Creatinine Creat Clearance w eGFR POC Glucometer 121 80 98 Random Glucose Calcium Total Bilirubin AST ALT Alkaline Phosphatase Total Protein Albumin Urine Color Urine Appearance Urine pH Ur Specific [place] Urine Protein Urine Glucose (UA) Urine Ketones Urine Blood Urine Nitrite Urine Bilirubin Urine Urobilinogen Ur Leukocyte Esterase Valproic Acid RPR Titer HIV 1&2 Antibody Screen HIV P24 Antigen 11/20/17 11/21/17 16:46 06:42 WBC RBC Hgb Hct MCV MCH MCHC RDW Plt Count MPV Sodium Potassium Chloride Carbon Dioxide Anion Gap BUN Creatinine Creat Clearance w eGFR POC Glucometer 120 103 Random Glucose Calcium Total Bilirubin AST ALT Alkaline Phosphatase Total Protein Albumin Urine Color Urine Appearance Urine pH Ur Specific [place] Urine Protein Urine Glucose (UA) Urine Ketones Urine Blood Urine Nitrite Urine Bilirubin Urine Urobilinogen Ur Leukocyte Esterase Valproic Acid RPR Titer HIV 1&2 Antibody Screen HIV P24 Antigen Labs reviewed Assessment: 11/21/17 14:00 Withdrawal symptoms Plan: Continue detox Encouraged PO hydration (water)
[2017-11-21] MEDS: THIAMINE HCL 100 MG TABLET (FP) PO SCH (22:11)
[2017-11-21] MEDS: LIDOCAINE PATCH REMOVAL MC SCH (22:27)
[2017-11-22] MEDS ORDERED: METHADONE HCL 5 MG TABLET (FOR DETOX USE ONLY) PO SCH (06:00)
[2017-11-22 09:15] VITALS: BP 113/72; PULSE 79; TEMP 97.4
[2017-11-22] MEDS: LIDOCAINE 5% TOPICAL PATCH TP SCH (10:13)
[2017-11-22] MEDS: DIVALPROEX SODIUM 500 MG TABLET E.C. PO SCH (10:13)
[2017-11-22] MEDS: FLUoxetine HCL 20 MG CAPSULE (FP) PO SCH (10:14)
[2017-11-22] MEDS: PRENATAL VITAMINS W/ FOLIC ACID TABLET (FP) PO SCH (10:14)
[2017-11-22] MEDS: NICOTINE 21 MG/24 HOURS TOPICAL PATCH TD SCH (10:14)
--- NOTE | 2017-11-22 12:22 | PN ---
[facility] Progress Note (SOAP) Subjective: DETOX COMPLETED. ALERT O X 3. NAD. PT IS A POOR HISTORIAN. Objective: 11/22/17 12:17 Vital Signs 11/22/17 11/22/17 06:30 09:14 Temperature 97.4 F L Pulse Rate 79 Respiratory 18 18 Rate Blood Pressure 113/72 Laboratory Tests 11/17/17 11/17/17 11/18/17 22:25 23:23 04:49 WBC RBC Hgb Hct MCV MCH MCHC RDW Plt Count MPV Sodium Potassium Chloride Carbon Dioxide Anion Gap BUN Creatinine Creat Clearance w eGFR POC Glucometer 93 119 Random Glucose Calcium Total Bilirubin AST ALT Alkaline Phosphatase Total Protein Albumin Urine Color Yellow Urine Appearance Clear Urine pH 7.0 Ur Specific [place] 1.021 Urine Protein Negative Urine Glucose (UA) Negative Urine Ketones 1+ H Urine Blood Negative Urine Nitrite Negative Urine Bilirubin Negative Urine Urobilinogen Negative Ur Leukocyte Esterase Negative Valproic Acid RPR Titer HIV 1&2 Antibody Screen HIV P24 Antigen 11/18/17 11/18/17 11/18/17 07:30 07:30 07:30 WBC 5.8 RBC 4.32 Hgb 13.7 Hct 39.8 MCV 92.1 MCH 31.7 MCHC 34.4 RDW 13.2 Plt Count 211 MPV 9.2 Sodium Potassium Chloride Carbon Dioxide Anion Gap BUN Creatinine Creat Clearance w eGFR POC Glucometer Random Glucose Calcium Total Bilirubin AST ALT Alkaline Phosphatase Total Protein Albumin Urine Color Urine Appearance Urine pH Ur Specific [place] Urine Protein Urine Glucose (UA) Urine Ketones Urine Blood Urine Nitrite Urine Bilirubin Urine Urobilinogen Ur Leukocyte Esterase Valproic Acid 52.2 RPR Titer HIV 1&2 Antibody Screen Negative HIV P24 Antigen Negative 11/18/17 11/18/17 11/18/17 07:30 07:30 11:50 WBC RBC Hgb Hct MCV MCH MCHC RDW Plt Count MPV Sodium 144 Potassium 4.4 Chloride 109 H Carbon Dioxide 31 Anion Gap 4 L BUN 18 Creatinine 0.9 Creat Clearance w eGFR > 60 POC Glucometer 92 Random Glucose 81 Calcium 8.5 Total Bilirubin 0.2 AST 11 L ALT 16 Alkaline Phosphatase 73 Total Protein 5.9 L Albumin 3.4 Urine Color Urine Appearance Urine pH Ur Specific [place] Urine Protein Urine Glucose (UA) Urine Ketones Urine Blood Urine Nitrite Urine Bilirubin Urine Urobilinogen Ur Leukocyte Esterase Valproic Acid RPR Titer Nonreactive HIV 1&2 Antibody Screen HIV P24 Antigen 11/18/17 11/19/17 11/19/17 16:17 05:50 07:40 WBC RBC Hgb Hct MCV MCH MCHC RDW Plt Count MPV Sodium Potassium Chloride Carbon Dioxide Anion Gap BUN Creatinine Creat Clearance w eGFR POC Glucometer 109 78 Random Glucose Calcium Total Bilirubin AST ALT Alkaline Phosphatase Total Protein Albumin Urine Color Urine Appearance Urine pH Ur Specific [place] Urine Protein Urine Glucose (UA) Urine Ketones Urine Blood Urine Nitrite Urine Bilirubin Urine Urobilinogen Ur Leukocyte Esterase Valproic Acid 46.0 L RPR Titer HIV 1&2 Antibody Screen HIV P24 Antigen 11/19/17 11/19/17 11/20/17 12:40 16:14 06:06 WBC RBC Hgb Hct MCV MCH MCHC RDW Plt Count MPV Sodium Potassium Chloride Carbon Dioxide Anion Gap BUN Creatinine Creat Clearance w eGFR POC Glucometer 121 80 98 Random Glucose Calcium Total Bilirubin AST ALT Alkaline Phosphatase Total Protein Albumin Urine Color Urine Appearance Urine pH Ur Specific [place] Urine Protein Urine Glucose (UA) Urine Ketones Urine Blood Urine Nitrite Urine Bilirubin Urine Urobilinogen Ur Leukocyte Esterase Valproic Acid RPR Titer HIV 1&2 Antibody Screen HIV P24 Antigen 11/20/17 11/21/17 11/21/17 16:46 06:42 16:17 WBC RBC Hgb Hct MCV MCH MCHC RDW Plt Count MPV Sodium Potassium Chloride Carbon Dioxide Anion Gap BUN Creatinine Creat Clearance w eGFR POC Glucometer 120 103 134 Random Glucose Calcium Total Bilirubin AST ALT Alkaline Phosphatase Total Protein Albumin Urine Color Urine Appearance Urine pH Ur Specific [place] Urine Protein Urine Glucose (UA) Urine Ketones Urine Blood Urine Nitrite Urine Bilirubin Urine Urobilinogen Ur Leukocyte Esterase Valproic Acid RPR Titer HIV 1&2 Antibody Screen HIV P24 Antigen 11/22/17 03:48 WBC RBC Hgb Hct MCV MCH MCHC RDW Plt Count MPV Sodium Potassium Chloride Carbon Dioxide Anion Gap BUN Creatinine Creat Clearance w eGFR POC Glucometer 103 Random Glucose Calcium Total Bilirubin AST ALT Alkaline Phosphatase Total Protein Albumin Urine Color Urine Appearance Urine pH Ur Specific [place] Urine Protein Urine Glucose (UA) Urine Ketones Urine Blood Urine Nitrite Urine Bilirubin Urine Urobilinogen Ur Leukocyte Esterase Valproic Acid RPR Titer HIV 1&2 Antibody Screen HIV P24 Antigen Assessment: 11/22/17 12:19 MEDICALLY STABLE Plan: D/C PT TO REHAB TODAY IF BED AVAILABLE.
--- NOTE | 2017-11-22 12:29 | DS ---
[facility] Detox Discharge Summary Admission Date: 11/17/17 Discharge Date: 11/22/17 - History Present History: Alcohol Dependence, Cocaine Dependence, Opioid Dependence Additional Comments: DETOX COMPLETED. Pertinent Past History: PLEASE SEE DX BELOW - Physical Exam Results Vital Signs: Vital Signs Temperature 97.4 F L 11/22/17 09:14 Pulse Rate 79 11/22/17 09:14 Respiratory Rate 18 11/22/17 09:14 Blood Pressure 113/72 11/22/17 09:14 O2 Sat by Pulse Oximetry (%) Pertinent Admission Physical Exam Findings: WITHDRAWAL SX - Treatment Hospital Course: Detox Protocol Followed, Detoxed Safely, Responded well, Discharged Condition Good - Medication Discharge Medications: Ambulatory Orders Amlodipine Besylate [Norvasc -] 5 mg PO BID 11/17/17 Divalproex [Depakote -] 500 mg PO BID 11/17/17 Fluoxetine HCl [Prozac -] 20 mg PO DAILY 11/17/17 Benztropine Mesylate [Cogentin -] 1 mg PO BID #60 tablet 11/18/17 Divalproex [Depakote -] 500 mg PO BID #60 tablet.ec 11/18/17 Fluoxetine HCl [Prozac -] 20 mg PO DAILY #30 capsule 11/18/17 Risperidone [Risperdal -] 1 mg PO BID #60 tablet 11/18/17 - Diagnosis (1) Alcohol dependence with withdrawal, uncomplicated Current Visit: Yes Status: Acute (2) Opioid dependence with withdrawal Current Visit: Yes Status: Acute (3) Asthma Current Visit: Yes Status: Chronic Qualifiers: Asthma severity: unspecified severity Asthma persistence: unspecified Asthma complication type: uncomplicated Qualified Code(s): J45.909 - Unspecified asthma, uncomplicated (4) Diabetes mellitus type 2, controlled, without complications Current Visit: Yes Status: Chronic (5) Hypertension Current Visit: Yes Status: Chronic Qualifiers: Hypertension type: essential hypertension Qualified Code(s): I10 - Essential (primary) hypertension (6) Nicotine dependence Current Visit: Yes Status: Acute Qualifiers: Nicotine product type: cigarettes Substance use status: in withdrawal Qualified Code(s): F17.213 - Nicotine dependence, cigarettes, with withdrawal (7) Seizure Current Visit: Yes Status: Suspected (8) Cocaine dependence Current Visit: Yes Status: Acute Qualifiers: Substance use status: uncomplicated Qualified Code(s): F14.20 - Cocaine dependence, uncomplicated - AMA Did Patient Leave Against Medical Advice: No
[2017-11-22] MEDS: amLODIPine BESYLATE 5 MG TABLET (FP) PO SCH (13:00)
== END 2017-11-22 17:26 | disposition other institution (70) | DRG 773 ==
LOC: YASAS 13:12 → Y3N 17:50
PROVIDERS: ADMIT Surgery; ATTEND Surgery
PROC: HZ2ZZZZ Detoxification Services for Substance Abuse Treatment (ICD-10-PCS; principal; 2017-11-17)
DX: F11.23 Opioid dependence with withdrawal (principal); F10.230 Alcohol dependence with withdrawal, uncomplicated; F14.20 Cocaine dependence, uncomplicated; F17.213 Nicotine dependence, cigarettes, with withdrawal; F31.89 Other bipolar disorder; F20.9 Schizophrenia, unspecified; I10 Essential (primary) hypertension; J45.909 Unspecified asthma, uncomplicated; E11.9 Type 2 diabetes mellitus without complications; G40.909 Epilepsy, unspecified, not intractable, without status epilepticus; R53.1 Weakness; W18.39XA Other fall on same level, initial encounter; Z91.81 History of falling; Y93.89 Activity, other specified; Y92.238 Other place in hospital as the place of occurrence of the external cause; Z88.0 Allergy status to penicillin; Z88.6 Allergy status to analgesic agent; Z79.84 Long term (current) use of oral hypoglycemic drugs
CPT/HCPCS: 36415; 73560-TC-LT-FY; 73560-TC-RT-FY; 80053; 80164; 81003; 82962; 85027; 86593; 87389; 93005; 93010; J2794

== ENCOUNTER 2017-11-18 19:29 | Emergency (ER) | payer OTHER ==
[2017-11-18 19:46] VITALS: BMI 25.0
--- NOTE | 2017-11-18 20:26 | PDOC ---
History of Present Illness - History of Present Illness Initial Comments: 11/18/17 21:26 Patient is a 47 year old male with a significant past medical history of Asthma , DM-II, Epilepsy, HTN who presents to the ED with complaints of chest pain, s/ p fall that occurred just prior to ED arrival. Patient reports having a witness seizure this evening,that he states lasted 20 minutes, causing him to fall on to the floor hitting his head and chest and causing immediate pain. He reports experiencing associated lower back pain, vomiting secondary to seizure, fevers, chills, headache, abdominal pain, urinary frequency and dysuria. Denies nausea, vomiting. Denies contact with sick individuals, out of state travelling. Denies hematuria. Denies fevers, chills. Denies any other symptoms. Allergies: Penicillins Acetaminophen Social history: From [place] Current smoker. Current alcohol use. Polysubstance abuse. Surgical history: None PMD: None Adult ROS General: No fevers or chills, no weakness, no weight loss HEENT: No change in vision. No sore throat, No ear pain Cardiovascular: +Chest pain, +Difficulty breathing. Respiratory:No cough, or wheezing. Gastrointestinal: No nausea, vomiting, diarrhea or constipation, No rectal bleeding Genitourinary: +Dysuria, +Hematuria. No hematuria, Musculoskeletal: +Lower back pain. No joint or muscle swelling Neurologic: No headache, vertigo, dizziness or loss of consciousness Psychiatric: No depression Skin: No rashes or easy bruising Endocrine: No increased thirst or abnormal weight change Allergic: No skin or latex allergy All other systems reviewed and normal Adult PE General: +Chronically ill appearing male. +Sleeping at time of eval. Well-nourished well-developed individual, no acute distress HEENT: +Atraumatic. Throat: Normal, tonsils normal, no erythema or exudate Neck: +Nontender. Supple, no meningeal signs, no lymphadenopathy Eyes::Pupils equal reactive and round, extraocular motion intact Chest: +Anterior chest wall tenderness on palpation. Nontender to palpation Cardiac: S1-S2 normal, regular rate and rhythm, no murmurs rubs or gallops Respiratory: Lungs clear to auscultation bilateral Abdomen: +Mild tenderness across lower abdomen. Musculoskeletal: +Atraumatic back. +Lidocaine patch over lumbar spine. + Paraspinal tenderness. No bony tenderness. Soft, nondistended, normal bowel sounds, Extremities: Warm, dry, no cyanosis, clubbing, or edema Skin: No rashes Neuro: +Difficulty maintaining focus and answering questions. Alert and oriented x3, nonfocal exam, grossly intact, normal gait Psych: Normal mood and affect 11/18/17 21:49 <Lenin Yoon - Last Filed: 11/18/17 21:49> - General History Source: Patient Exam Limitations: No Limitations - History of Present Illness Initial Comments: 11/18/17 21:00 A portion of this note was documented by scribe services under my direction. I have reviewed the details of the note, within reason, and agree with the documentation. The case summary and management plan written by me. Medical decision making this is a 47-year-old male who comes in from [facility] for opioid detox. Patient is on methadone. Patient had a seizure yesterday and reports another seizure today. In discussion with patient he said he has not taken his Depakote 2 days now. A workup was obtained including CBC, comp, drug screen, urinalysis, chest x-ray , head CT, EKG Patient got up to go to the bathroom and fell injuring his knee so x-ray of his knee was added. 22:30 Patient's drug screen was positive for cocaine, methadone and benzos. Given the fact that patient is positive for cocaine and has not taken his Depakote this most likely is the cause of his seizures. 11/19/17 00:11 Patient's workup otherwise unremarkable. Patient discharged back to rehabilitation will follow-up with his doctor as needed <Jam Gann I - Last Filed: 11/19/17 00:12> - General Chief Complaint: Injury Stated Complaint: FALL/PAIN Time Seen by Provider: 11/18/17 20:02 Past History <Lenin Yoon - Last Filed: 11/18/17 21:49> - Past Medical History Anemia: No Asthma: Yes Cancer: No Cardiac Disorders: No CVA: No COPD: No CHF: No Dementia: No Diabetes: Yes GI Disorders: No Disorders: No HTN: Yes Hypercholesterolemia: No Kidney Stones: No Liver Disease: No Seizures: Yes Thyroid Disease: No - Surgical History Abdominal Surgery: No Appendectomy: No Cardiac Surgery: No Cholecystectomy: No Lung Surgery: No Neurologic Surgery: No - Reproductive History Testicular Surgery: No - Suicide/Smoking/Psychosocial Hx Smoking History: Unknown if ever smoked Have you smoked in the past 12 months: No Number of Cigarettes Smoked Daily: 60 Information on smoking cessation initiated: No 'Breaking Loose' booklet given: 11/17/17 Hx Alcohol Use: Yes Drug/Substance Use Hx: Yes Substance Use Type: Alcohol, Cocaine, Heroin Hx Substance Use Treatment: Yes ( Last detox at [facility] six months ago) <Jam Gann I - Last Filed: 11/19/17 00:12> - Past Medical History Allergies/Adverse Reactions: Allergies Allergy/AdvReac Type Severity Reaction Status Date / Time Penicillins Allergy Severe Swelling Verified 11/18/17 19:37 acetaminophen [From Tylenol] Allergy Swelling Verified 11/18/17 19:37 Home Medications: Ambulatory Orders Amlodipine Besylate [Norvasc -] 5 mg PO BID 11/17/17 Divalproex [Depakote -] 500 mg PO BID 11/17/17 Fluoxetine HCl [Prozac -] 20 mg PO DAILY 11/17/17 Benztropine Mesylate [Cogentin -] 1 mg PO BID #60 tablet 11/18/17 Divalproex [Depakote -] 500 mg PO BID #60 tablet.ec 11/18/17 Fluoxetine HCl [Prozac -] 20 mg PO DAILY #30 capsule 11/18/17 Risperidone [Risperdal -] 1 mg PO BID #60 tablet 11/18/17 Trauma Specific PMHX - Complaint Specific PMHX Arthritis: No <Jam Gnan I - Last Filed: 11/19/17 00:12> *Physical Exam - Vital Signs Last Vital Signs Temp Pulse Resp BP Pulse Ox 97.1 F L 70 18 95/60 97 11/18/17 19:37 11/18/17 19:37 11/18/17 19:37 11/18/17 19:37 11/18/17 19:37 <Lenin Yoon - Last Filed: 11/18/17 21:49> - Vital Signs Last Vital Signs Temp Pulse Resp BP Pulse Ox 97.1 F L 70 18 95/60 97 11/18/17 19:37 11/18/17 19:37 11/18/17 19:37 08/02/18 19:37 11/18/17 19:37 <Jam Gann I - Last Filed: 11/19/17 00:12> ED Treatment Course - LABORATORY CBC & Chemistry Diagram: 11/18/17 21:30 11/18/17 21:30 <KarrieLenin zimmerman - Last Filed: 11/18/17 21:49> - LABORATORY CBC & Chemistry Diagram: 11/18/17 21:30 11/18/17 21:30 <Jam Gann I - Last Filed: 11/19/17 00:12> *DC/Admit/Observation/Transfer <Lenin Yoon - Last Filed: 11/18/17 21:49> - Discharge Dispostion Decision to Admit order: No <Jam Gann I - Last Filed: 11/19/17 00:12> Diagnosis at time of Disposition: Cocaine dependence, Seizure - Discharge Dispostion Disposition: HOME - Patient Instructions Additional Instructions: Make sure you take your seizure medication and do not skip a dose. Your toxicology screen was positive for cocaine if you take cocaine and do not take your seizure medication U well habitus another seizure. Return to the emergency department immediately with ANY new, persistent or worsening symptoms. Continue any medications as previously prescribed by your physician. You should follow up with your primary doctor as soon as possible regarding today's emergency department visit. . Please make sure your doctor reviews the results of your emergency evaluation. Thank you for coming to the Emergency Department today for your care. It was a pleasure to see you today. Please note that your evaluation is INCOMPLETE until you follow-up with your doctor.
[2017-11-18] MEDS ORDERED: SODIUM CHLORIDE 1,000 ML IV ONE (20:38)
[2017-11-18] MEDS ORDERED: DIVALPROEX NA *ER* EXTEND REL 500 MG TABLET.SA (FP) PO ONE (20:41)
[2017-11-18] MEDS ORDERED: DIVALPROEX SODIUM 500 MG TABLET E.C. ONE (21:39)
[2017-11-18 21:51] LABS: BASO % 1.5 % (0-2.0); EOS % 4.8 % (0-4.5); HEMATOCRIT 41.7 % (35.4-49); HEMOGLOBIN 14.2 GM/dL (11.7-16.9); LYMPH % 46.6 % (8-40); MCH 31.3 pg (25.7-33.7); MEAN CELL VOLUME 92.2 fl (80-96); MONO % 10.4 % (3.8-10.2); NEUT % 36.7 % (42.8-82.8); PLATELET COUNT 240 K/MM3 (134-434); RBC 4.52 M/mm3 (4.00-5.60); RDW 13.2 % (11.9-15.9); WHITE BLOOD COUNT 5.1 K/mm3 (4.0-10.0)
[2017-11-18 22:10] LABS: ALBUMIN 3.8 g/dl (3.4-5.0); ANION GAP 5 (8-16); BILIRUBIN,TOTAL 0.1 mg/dL (0.2-1.0); BLOOD UREA NITROGEN 15 mg/dL (7-18); CALCIUM 8.9 mg/dL (8.5-10.1); CHLORIDE 107 mmol/L (98-107); CO2 33 mmol/L (21-32); CREATININE 0.8 mg/dL (0.7-1.3); GLUCOSE,RANDOM 68 mg/dL (74-106); POTASSIUM 4.4 mmol/L (3.5-5.1); SGOT/AST 10 U/L (15-37); SGPT/ALT 17 U/L (12-78); SODIUM 145 mmol/L (136-145); TOT PROT 6.7 g/dl (6.4-8.2)
[2017-11-18 22:11] LABS: ALK PHOS 88 U/L (45-117)
[2017-11-18 22:13] LABS: URINE APPEARANCE CLEAR; URINE BILIRUBIN NEGATIVE (<2.0 mg/dL); URINE COLOR STRAW; URINE GLUCOSE (UA) NEGATIVE (NEGATIVE); URINE KETONE NEGATIVE (NEGATIVE); URINE LEUK ESTERASE NEGATIVE (NEGATIVE); URINE NITRITE NEGATIVE (NEGATIVE); URINE PROTEIN NEGATIVE (NEGATIVE); URINE UROBILINOGEN NEGATIVE mg/dL (0.2-1.0)
[2017-11-18 22:34] LABS: OPIATES, URI NEGATIVE ng/ml (CUTOFF=300); PHENCYCLIDINE,URINE NEGATIVE ng/ml (CUTOFF=25); URINE AMPHETAMINES NEGATIVE ng/ml (CUTOFF=500); URINE BARBITURATES NEGATIVE ng/ml (CUTOFF=200)
[2017-11-18 22:35] LABS: COCAINE, UR POSITIVE ng/ml (CUTOFF=300); METHADONE, UR POSITIVE ng/ml (CUTOFF=300); URINE BENZODIAZEPINES POSITIVE ng/ml (CUTOFF=200)
[2017-11-18 23:15] VITALS: BP 97/68; TEMP 98.6
--- NOTE | 2017-11-20 09:13 | EKG ---
Test Reason : Blood Pressure : / mmHG Vent. Rate : 058 BPM Atrial Rate : 058 BPM P-R Int : 114 ms QRS Dur : 102 ms QT Int : 416 ms P-R-T Axes : 014 068 056 degrees QTc Int : 408 ms SINUS BRADYCARDIA EARLY REPOLARIZATION OTHERWISE NORMAL ECG WHEN COMPARED WITH ECG OF 18-NOV-2017 09:30, NONSPECIFIC T WAVE ABNORMALITY NOW EVIDENT IN ANTERIOR LEADS Confirmed by MADHU PIERCE, ANGELA ([id number]) on 11/20/2017 9:13:14 AM Referred By: Confirmed By:ANGELA LEUNG MD
[2017-11-26 06:03] VITALS: PULSE 77
== END 2017-11-19 02:20 | disposition home or self-care (01) ==
LOC: JER 19:29
PROC: 3E0337Z Introduction of Electrolytic and Water Balance Substance into Peripheral Vein, Percutaneous Approach (ICD-10-PCS; principal; 2017-11-18)
DX: G40.909 Epilepsy, unspecified, not intractable, without status epilepticus (principal); R07.89 Other chest pain; M54.5 Low back pain; W10.8XXA Fall (on) (from) other stairs and steps, initial encounter; Y93.89 Activity, other specified; Y92.89 Other specified places as the place of occurrence of the external cause; Y99.8 Other external cause status; J45.909 Unspecified asthma, uncomplicated; E11.9 Type 2 diabetes mellitus without complications; I10 Essential (primary) hypertension
CPT/HCPCS: 36415; 71045-TC-FY; 71046-TC-FY; 80053; 80164; 80307; 81003; 82550; 84484; 85025; 93005; 93010; 99282-25; J7030

== ENCOUNTER 2018-02-18 13:10 | Inpatient (IN) | payer OTHER ==
[2018-02-18 15:06] VITALS: BMI 23.5
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
[2018-02-18] MEDS ORDERED: MAG HYDROX/AL HYDROX/SIMETH 30 ML UNIT-DOSE CUP PO PRN (15:53)
[2018-02-18] MEDS ORDERED: MENTHOL/PHENOL 1 EACH UD MM PRN (15:53)
[2018-02-18] MEDS ORDERED: guaiFENesin/D-METHORPHAN HB 10 ML UNIT-DOSE CUPS PO PRN (15:53)
[2018-02-18] MEDS ORDERED: MAGNESIUM CITRATE 300 ML BOTTLE PO PRN (15:53)
[2018-02-18] MEDS ORDERED: P-EPHED 60MG/TRIPROLIDI 2.5MG TABLET PO PRN (15:53)
[2018-02-18] MEDS ORDERED: MAGNESIUM HYDROX 2400MG/30ML ORAL SUSPENSION 30 ML CUP PO PRN (15:53)
[2018-02-18] MEDS ORDERED: NICOTINE POLACRILEX 2 MG GUM BC PRN (15:53)
[2018-02-18] MEDS ORDERED: ALBUTEROL SO4 0.083% IH SOL 2.5 MG/3 ML VIAL.NEB. NEB PRN (15:59)
[2018-02-18] MEDS ORDERED: INSULIN (NOVOLOG) ASPART 100 UNITS/ML 10ML VIAL SQ SCH (16:30)
[2018-02-18] MEDS: chlordiazePOXIDE HCL 25 MG CAPSULE PO PRN (18:12)
[2018-02-18] MEDS: INSULIN (NOVOLOG) ASPART 100 UNITS/ML 10ML VIAL SQ SCH (18:17)
[2018-02-18] MEDS ORDERED: MELATONIN 5 MG TABLETS PO PRN (22:00)
[2018-02-18] MEDS: chlordiazePOXIDE HCL 25 MG CAPSULE PO SCH (23:22)
[2018-02-18] MEDS: THIAMINE HCL 100 MG TABLET (FP) PO SCH (23:22)
[2018-02-18] MEDS: DIVALPROEX SODIUM 500 MG TABLET E.C. PO SCH (23:22)
[2018-02-18 23:30] LABS: URINE APPEARANCE CLEAR; URINE BILIRUBIN NEGATIVE (<2.0 mg/dL); URINE COLOR YELLOW; URINE GLUCOSE (UA) NEGATIVE (NEGATIVE); URINE KETONE NEGATIVE (NEGATIVE); URINE LEUK ESTERASE NEGATIVE (NEGATIVE); URINE NITRITE NEGATIVE (NEGATIVE); URINE PROTEIN NEGATIVE (NEGATIVE)
[2018-02-19] MEDS: IBUPROFEN 400 MG TABLET (FP) PO PRN ×3 (05:43→22:45)
[2018-02-19] MEDS: chlordiazePOXIDE HCL 25 MG CAPSULE PO SCH ×4 (05:58→22:43)
[2018-02-19] MEDS: INSULIN (NOVOLOG) ASPART 100 UNITS/ML 10ML VIAL SQ SCH ×3 (06:59→17:51)
[2018-02-19] MEDS ORDERED: ONDANSETRON *ODT* 4 MG TABLET SL PRN (09:58)
--- NOTE | 2018-02-19 10:00 | PN ---
S CIWA - CIWA Score Nausea/Vomitin-Int. Nausea w/Dry Heave Muscle Tremors: 2 Anxiety: 2 Agitation: 2 Paroxysmal Sweats: 2 Orientation: 0-Oriented Tacttile Disturbances: 1-Very Mild Itch/Numbness Auditory Disturbances: 0-None Visual Disturbances: 0-None Headache: 0-None Present CIWA-Ar Total Score: 13 S Progress Note (SOAP) Subjective: fatigue, nausea and vomiting, anxious Objective: 02/19/18 09:59 Vital Signs Temperature 97.4 F L 02/19/18 09:11 Pulse Rate 87 02/19/18 09:11 Respiratory Rate 18 02/19/18 09:11 Blood Pressure 99/68 02/19/18 09:11 O2 Sat by Pulse Oximetry (%) Laboratory Last Values POC Glucometer 110 UNITS (80-120) 02/19/18 05:42 Urine Color Yellow 02/18/18 18:05 Urine Appearance Clear 02/18/18 18:05 Urine pH 6.0 (5.0-8.0) 02/18/18 18:05 Ur Specific [place] 1.026 (1.010-1.035) 02/18/18 18:05 Urine Protein Negative (NEGATIVE) 02/18/18 18:05 Urine Glucose (UA) Negative (NEGATIVE) 02/18/18 18:05 Urine Ketones Negative (NEGATIVE) 02/18/18 18:05 Urine Blood Negative (NEGATIVE) 02/18/18 18:05 Urine Nitrite Negative (NEGATIVE) 02/18/18 18:05 Urine Bilirubin Negative (<2.0 mg/dL) 02/18/18 18:05 Urine Urobilinogen 2.0 mg/dL (0.2-1.0) 02/18/18 18:05 Ur Leukocyte Esterase Negative (NEGATIVE) 02/18/18 18:05 Laboratory Last Values WBC 5.7 K/mm3 (4.0-10.0) 02/19/18 08:00 RBC 4.77 M/mm3 (4.00-5.60) 02/19/18 08:00 Hgb 15.2 GM/dL (11.7-16.9) 02/19/18 08:00 Hct 43.9 % (35.4-49) 02/19/18 08:00 MCV 92.0 fl (80-96) 02/19/18 08:00 MCH 31.9 pg (25.7-33.7) 02/19/18 08:00 MCHC 34.7 g/dl (32.0-35.9) 02/19/18 08:00 RDW 13.8 % (11.9-15.9) 02/19/18 08:00 Plt Count 208 K/MM3 (134-434) 02/19/18 08:00 MPV 9.3 fl (7.5-11.1) 02/19/18 08:00 Sodium 142 mmol/L (136-145) 02/19/18 08:00 Potassium 4.1 mmol/L (3.5-5.1) 02/19/18 08:00 Chloride 106 mmol/L (98-107) 02/19/18 08:00 Carbon Dioxide 26 mmol/L (21-32) 02/19/18 08:00 Anion Gap 9 MMOL/L (8-16) 02/19/18 08:00 BUN 20 mg/dL (7-18) H 02/19/18 08:00 Creatinine 0.9 mg/dL (0.55-1.3) 02/19/18 08:00 Creat Clearance w eGFR > 60 (>60) 02/19/18 08:00 POC Glucometer 121 UNITS (80-120) 02/19/18 11:39 Random Glucose 84 mg/dL (74-106) 02/19/18 08:00 Calcium 8.6 mg/dL (8.5-10.1) 02/19/18 08:00 Total Bilirubin 0.5 mg/dL (0.2-1) 02/19/18 08:00 AST 16 U/L (15-37) 02/19/18 08:00 ALT 25 U/L (13-61) 02/19/18 08:00 Alkaline Phosphatase 87 U/L (45-117) 02/19/18 08:00 Total Protein 6.7 g/dl (6.4-8.2) 02/19/18 08:00 Albumin 3.6 g/dl (3.4-5.0) 02/19/18 08:00 Urine Color Yellow 02/18/18 18:05 Urine Appearance Clear 02/18/18 18:05 Urine pH 6.0 (5.0-8.0) 02/18/18 18:05 Ur Specific [place] 1.026 (1.010-1.035) 02/18/18 18:05 Urine Protein Negative (NEGATIVE) 02/18/18 18:05 Urine Glucose (UA) Negative (NEGATIVE) 02/18/18 18:05 Urine Ketones Negative (NEGATIVE) 02/18/18 18:05 Urine Blood Negative (NEGATIVE) 02/18/18 18:05 Urine Nitrite Negative (NEGATIVE) 02/18/18 18:05 Urine Bilirubin Negative (<2.0 mg/dL) 02/18/18 18:05 Urine Urobilinogen 2.0 mg/dL (0.2-1.0) 02/18/18 18:05 Ur Leukocyte Esterase Negative (NEGATIVE) 02/18/18 18:05 RPR Titer Nonreactive (NONREACTIVE) 02/19/18 08:00 Aox3 no distress no adventitious breath sounds full ROM ambulatory Assessment: 02/19/18 15:16 withdrawal sx Plan: zofran for nausea cane for ambulation increase fluids continue detox continue to monitor
[2018-02-19 10:26] LABS: HEMATOCRIT 43.9 % (35.4-49); HEMOGLOBIN 15.2 GM/dL (11.7-16.9); MCH 31.9 pg (25.7-33.7); MCHC 34.7 g/dl (32.0-35.9); MEAN PLT VOLUME 9.3 fl (7.5-11.1); PLATELET COUNT 208 K/MM3 (134-434); RBC 4.77 M/mm3 (4.00-5.60); RDW 13.8 % (11.9-15.9); WHITE BLOOD COUNT 5.7 K/mm3 (4.0-10.0)
[2018-02-19 10:30] LABS: ALBUMIN 3.6 g/dl (3.4-5.0); ALK PHOS 87 U/L (45-117); ANION GAP 9 MMOL/L (8-16); BILIRUBIN,TOTAL 0.5 mg/dL (0.2-1); BLOOD UREA NITROGEN 20 mg/dL (7-18); CALCIUM 8.6 mg/dL (8.5-10.1); CHLORIDE 106 mmol/L (98-107); CO2 26 mmol/L (21-32); CREATININE 0.9 mg/dL (0.55-1.3); GLUCOSE,RANDOM 84 mg/dL (74-106); POTASSIUM 4.1 mmol/L (3.5-5.1); SGOT/AST 16 U/L (15-37); SGPT/ALT 25 U/L (13-61); SODIUM 142 mmol/L (136-145); TOT PROT 6.7 g/dl (6.4-8.2)
[2018-02-19] MEDS: PRENATAL VITAMINS W/ FOLIC ACID TABLET (FP) PO SCH (10:56)
[2018-02-19] MEDS: DIVALPROEX SODIUM 500 MG TABLET E.C. PO SCH ×2 (10:56→22:43)
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
[2018-02-19] MEDS: risperiDONE 0.5 MG TABLET (FP) PO SCH (22:43)
[2018-02-19] MEDS: THIAMINE HCL 100 MG TABLET (FP) PO SCH (22:43)
[2018-02-20] MEDS: chlordiazePOXIDE HCL 25 MG CAPSULE PO SCH ×3 (06:13→16:46)
[2018-02-20] MEDS: INSULIN (NOVOLOG) ASPART 100 UNITS/ML 10ML VIAL SQ SCH ×3 (06:37→16:46)
[2018-02-20] MEDS: PRENATAL VITAMINS W/ FOLIC ACID TABLET (FP) PO SCH (10:36)
[2018-02-20] MEDS ORDERED: TRIMETHOBENZAMIDE HCL 200MG/2ML INJ IM PRN (10:59)
[2018-02-20] MEDS: risperiDONE 0.5 MG TABLET (FP) PO SCH ×2 (11:57→22:24)
[2018-02-20] MEDS: DIVALPROEX SODIUM 500 MG TABLET E.C. PO SCH ×2 (11:58→22:24)
[2018-02-20] MEDS: chlordiazePOXIDE HCL 25 MG CAPSULE PO PRN ×2 (11:58→17:34)
[2018-02-20] MEDS: IBUPROFEN 400 MG TABLET (FP) PO PRN ×2 (12:14→19:51)
--- NOTE | 2018-02-20 17:41 | PN ---
S CIWA - CIWA Score Nausea/Vomitin Muscle Tremors: 4-Moderate,w/Arms Extend Anxiety: 4-Mod. Anxious/Guarded Agitation: 3 Paroxysmal Sweats: 2 Orientation: 0-Oriented Tacttile Disturbances: 0-None Auditory Disturbances: 0-None Visual Disturbances: 0-None Headache: 1-Very Mild CIWA-Ar Total Score: 16 S Progress Note (SOAP) Subjective: Tremor, chills, vomiting, interrupted sleep Objective: 02/20/18 17:39 Last Vital Signs Temp Pulse Resp BP Pulse Ox 97.1 F L 93 H 20 106/68 02/20/18 13:54 02/20/18 13:54 02/20/18 13:54 02/20/18 13:54 Laboratory Tests 02/18/18 02/18/18 02/19/18 18:04 18:05 05:42 WBC RBC Hgb Hct MCV MCH MCHC RDW Plt Count MPV Sodium Potassium Chloride Carbon Dioxide Anion Gap BUN Creatinine Creat Clearance w eGFR POC Glucometer 124 110 Random Glucose Calcium Total Bilirubin AST ALT Alkaline Phosphatase Total Protein Albumin Urine Color Yellow Urine Appearance Clear Urine pH 6.0 Ur Specific [place] 1.026 Urine Protein Negative Urine Glucose (UA) Negative Urine Ketones Negative Urine Blood Negative Urine Nitrite Negative Urine Bilirubin Negative Urine Urobilinogen 2.0 Ur Leukocyte Esterase Negative Valproic Acid RPR Titer 02/19/18 02/19/18 02/19/18 08:00 08:00 08:00 WBC 5.7 RBC 4.77 Hgb 15.2 Hct 43.9 MCV 92.0 MCH 31.9 MCHC 34.7 RDW 13.8 Plt Count 208 MPV 9.3 Sodium 142 Potassium 4.1 Chloride 106 Carbon Dioxide 26 Anion Gap 9 BUN 20 H Creatinine 0.9 Creat Clearance w eGFR > 60 POC Glucometer Random Glucose 84 Calcium 8.6 Total Bilirubin 0.5 AST 16 ALT 25 Alkaline Phosphatase 87 Total Protein 6.7 Albumin 3.6 Urine Color Urine Appearance Urine pH Ur Specific [place] Urine Protein Urine Glucose (UA) Urine Ketones Urine Blood Urine Nitrite Urine Bilirubin Urine Urobilinogen Ur Leukocyte Esterase Valproic Acid RPR Titer Nonreactive 02/19/18 02/19/18 02/20/18 11:39 16:56 06:12 WBC RBC Hgb Hct MCV MCH MCHC RDW Plt Count MPV Sodium Potassium Chloride Carbon Dioxide Anion Gap BUN Creatinine Creat Clearance w eGFR POC Glucometer 121 113 93 Random Glucose Calcium Total Bilirubin AST ALT Alkaline Phosphatase Total Protein Albumin Urine Color Urine Appearance Urine pH Ur Specific [place] Urine Protein Urine Glucose (UA) Urine Ketones Urine Blood Urine Nitrite Urine Bilirubin Urine Urobilinogen Ur Leukocyte Esterase Valproic Acid RPR Titer 02/20/18 02/20/18 02/20/18 08:00 11:00 16:19 WBC RBC Hgb Hct MCV MCH MCHC RDW Plt Count MPV Sodium Potassium Chloride Carbon Dioxide Anion Gap BUN Creatinine Creat Clearance w eGFR POC Glucometer 115 111 Random Glucose Calcium Total Bilirubin AST ALT Alkaline Phosphatase Total Protein Albumin Urine Color Urine Appearance Urine pH Ur Specific [place] Urine Protein Urine Glucose (UA) Urine Ketones Urine Blood Urine Nitrite Urine Bilirubin Urine Urobilinogen Ur Leukocyte Esterase Valproic Acid 13.6 L RPR Titer Labs reviewed: bun 20 Assessment: 02/20/18 17:40 Withdrawal symptoms Noted with azotemia Plan: Continue detox Tigan 200mg IM Q8hr prn for n/v Azotemia: encouraged PO water intake
[2018-02-20] MEDS: THIAMINE HCL 100 MG TABLET (FP) PO SCH (22:24)
[2018-02-20] MEDS: chlordiazePOXIDE 5 MG CAPSULE PO SCH (22:25)
[2018-02-21] MEDS: INSULIN (NOVOLOG) ASPART 100 UNITS/ML 10ML VIAL SQ SCH ×2 (06:45→11:47)
[2018-02-21] MEDS: chlordiazePOXIDE 5 MG CAPSULE PO SCH ×3 (06:45→10:32)
[2018-02-21] MEDS: DIVALPROEX SODIUM 500 MG TABLET E.C. PO SCH (10:31)
[2018-02-21] MEDS: PRENATAL VITAMINS W/ FOLIC ACID TABLET (FP) PO SCH (10:31)
[2018-02-21] MEDS: risperiDONE 0.5 MG TABLET (FP) PO SCH (10:31)
[2018-02-21] MEDS ORDERED: MENTHOL/PHENOL 1 EACH UD MM PRN (11:18)
[2018-02-21] MEDS ORDERED: AZITHROMYCIN 250 MG TABLET PO ONE (12:00)
--- NOTE | 2018-02-21 12:27 | PN ---
S Progress Note (SOAP) Subjective: Tremor, chills, interrupted sleep. Patient c/o sore throat since yesterday stating he is now losing his voice and also c/o coughing. Objective: 02/21/18 12:26 Last Vital Signs Temp Pulse Resp BP Pulse Ox 97.4 F L 86 18 99/56 L 02/21/18 09:25 02/21/18 09:25 02/21/18 09:25 02/21/18 09:25 Laboratory Tests 02/18/18 02/18/18 02/18/18 17:05 18:04 18:05 WBC RBC Hgb Hct MCV MCH MCHC RDW Plt Count MPV Sodium Potassium Chloride Carbon Dioxide Anion Gap BUN Creatinine Creat Clearance w eGFR POC Glucometer 114 124 Random Glucose Calcium Total Bilirubin AST ALT Alkaline Phosphatase Total Protein Albumin Urine Color Yellow Urine Appearance Clear Urine pH 6.0 Ur Specific [place] 1.026 Urine Protein Negative Urine Glucose (UA) Negative Urine Ketones Negative Urine Blood Negative Urine Nitrite Negative Urine Bilirubin Negative Urine Urobilinogen 2.0 Ur Leukocyte Esterase Negative Valproic Acid RPR Titer 02/19/18 02/19/18 02/19/18 05:42 08:00 08:00 WBC 5.7 RBC 4.77 Hgb 15.2 Hct 43.9 MCV 92.0 MCH 31.9 MCHC 34.7 RDW 13.8 Plt Count 208 MPV 9.3 Sodium 142 Potassium 4.1 Chloride 106 Carbon Dioxide 26 Anion Gap 9 BUN 20 H Creatinine 0.9 Creat Clearance w eGFR > 60 POC Glucometer 110 Random Glucose 84 Calcium 8.6 Total Bilirubin 0.5 AST 16 ALT 25 Alkaline Phosphatase 87 Total Protein 6.7 Albumin 3.6 Urine Color Urine Appearance Urine pH Ur Specific [place] Urine Protein Urine Glucose (UA) Urine Ketones Urine Blood Urine Nitrite Urine Bilirubin Urine Urobilinogen Ur Leukocyte Esterase Valproic Acid RPR Titer 02/19/18 02/19/18 02/19/18 08:00 11:39 16:56 WBC RBC Hgb Hct MCV MCH MCHC RDW Plt Count MPV Sodium Potassium Chloride Carbon Dioxide Anion Gap BUN Creatinine Creat Clearance w eGFR POC Glucometer 121 113 Random Glucose Calcium Total Bilirubin AST ALT Alkaline Phosphatase Total Protein Albumin Urine Color Urine Appearance Urine pH Ur Specific [place] Urine Protein Urine Glucose (UA) Urine Ketones Urine Blood Urine Nitrite Urine Bilirubin Urine Urobilinogen Ur Leukocyte Esterase Valproic Acid RPR Titer Nonreactive 02/20/18 02/20/18 02/20/18 06:12 08:00 11:00 WBC RBC Hgb Hct MCV MCH MCHC RDW Plt Count MPV Sodium Potassium Chloride Carbon Dioxide Anion Gap BUN Creatinine Creat Clearance w eGFR POC Glucometer 93 115 Random Glucose Calcium Total Bilirubin AST ALT Alkaline Phosphatase Total Protein Albumin Urine Color Urine Appearance Urine pH Ur Specific [place] Urine Protein Urine Glucose (UA) Urine Ketones Urine Blood Urine Nitrite Urine Bilirubin Urine Urobilinogen Ur Leukocyte Esterase Valproic Acid 13.6 L RPR Titer 02/20/18 02/21/18 16:19 06:13 WBC RBC Hgb Hct MCV MCH MCHC RDW Plt Count MPV Sodium Potassium Chloride Carbon Dioxide Anion Gap BUN Creatinine Creat Clearance w eGFR POC Glucometer 111 115 Random Glucose Calcium Total Bilirubin AST ALT Alkaline Phosphatase Total Protein Albumin Urine Color Urine Appearance Urine pH Ur Specific [place] Urine Protein Urine Glucose (UA) Urine Ketones Urine Blood Urine Nitrite Urine Bilirubin Urine Urobilinogen Ur Leukocyte Esterase Valproic Acid RPR Titer Labs reviewed Assessment: 02/21/18 12:26 Withdrawal symptoms Plan: Continue detox Encouraged PO water intake
[2018-02-21 13:35] VITALS: BP 94/60; PULSE 81; TEMP 96.7
--- NOTE | 2018-02-21 15:36 | DS ---
[facility] Detox Discharge Summary Admission Date: 02/18/18 Discharge Date: 02/21/18 - History Present History: Opioid Dependence Additional Comments: Patient became agitated and demanding to leave AMA. Patient aware to call 911 if feeling sick or any withdrawal symptoms and to see his PCP within 3 days. Patient is A/A/Ox3, in nad, ambulatory. Pertinent Past History: DMT2 with hyperglycemia Nicotine dependence Opioid dependence Asthma Seizure disorder HTN - Physical Exam Results Vital Signs: Vital Signs Temperature 96.7 F L 02/21/18 13:34 Pulse Rate 81 02/21/18 13:34 Respiratory Rate 18 02/21/18 13:34 Blood Pressure 94/60 02/21/18 13:34 O2 Sat by Pulse Oximetry (%) Pertinent Admission Physical Exam Findings: Withdrawal symptoms Laboratory Tests 02/18/18 02/18/18 02/18/18 17:05 18:04 18:05 WBC RBC Hgb Hct MCV MCH MCHC RDW Plt Count MPV Sodium Potassium Chloride Carbon Dioxide Anion Gap BUN Creatinine Creat Clearance w eGFR POC Glucometer 114 124 Random Glucose Calcium Total Bilirubin AST ALT Alkaline Phosphatase Total Protein Albumin Urine Color Yellow Urine Appearance Clear Urine pH 6.0 Ur Specific [place] 1.026 Urine Protein Negative Urine Glucose (UA) Negative Urine Ketones Negative Urine Blood Negative Urine Nitrite Negative Urine Bilirubin Negative Urine Urobilinogen 2.0 Ur Leukocyte Esterase Negative Valproic Acid RPR Titer 02/19/18 02/19/18 02/19/18 05:42 08:00 08:00 WBC 5.7 RBC 4.77 Hgb 15.2 Hct 43.9 MCV 92.0 MCH 31.9 MCHC 34.7 RDW 13.8 Plt Count 208 MPV 9.3 Sodium 142 Potassium 4.1 Chloride 106 Carbon Dioxide 26 Anion Gap 9 BUN 20 H Creatinine 0.9 Creat Clearance w eGFR > 60 POC Glucometer 110 Random Glucose 84 Calcium 8.6 Total Bilirubin 0.5 AST 16 ALT 25 Alkaline Phosphatase 87 Total Protein 6.7 Albumin 3.6 Urine Color Urine Appearance Urine pH Ur Specific [place] Urine Protein Urine Glucose (UA) Urine Ketones Urine Blood Urine Nitrite Urine Bilirubin Urine Urobilinogen Ur Leukocyte Esterase Valproic Acid RPR Titer 02/19/18 02/19/18 02/19/18 08:00 11:39 16:56 WBC RBC Hgb Hct MCV MCH MCHC RDW Plt Count MPV Sodium Potassium Chloride Carbon Dioxide Anion Gap BUN Creatinine Creat Clearance w eGFR POC Glucometer 121 113 Random Glucose Calcium Total Bilirubin AST ALT Alkaline Phosphatase Total Protein Albumin Urine Color Urine Appearance Urine pH Ur Specific [place] Urine Protein Urine Glucose (UA) Urine Ketones Urine Blood Urine Nitrite Urine Bilirubin Urine Urobilinogen Ur Leukocyte Esterase Valproic Acid RPR Titer Nonreactive 02/20/18 02/20/18 02/20/18 06:12 08:00 11:00 WBC RBC Hgb Hct MCV MCH MCHC RDW Plt Count MPV Sodium Potassium Chloride Carbon Dioxide Anion Gap BUN Creatinine Creat Clearance w eGFR POC Glucometer 93 115 Random Glucose Calcium Total Bilirubin AST ALT Alkaline Phosphatase Total Protein Albumin Urine Color Urine Appearance Urine pH Ur Specific [place] Urine Protein Urine Glucose (UA) Urine Ketones Urine Blood Urine Nitrite Urine Bilirubin Urine Urobilinogen Ur Leukocyte Esterase Valproic Acid 13.6 L RPR Titer 02/20/18 02/21/18 02/21/18 16:19 06:13 11:39 WBC RBC Hgb Hct MCV MCH MCHC RDW Plt Count MPV Sodium Potassium Chloride Carbon Dioxide Anion Gap BUN Creatinine Creat Clearance w eGFR POC Glucometer 111 115 113 Random Glucose Calcium Total Bilirubin AST ALT Alkaline Phosphatase Total Protein Albumin Urine Color Urine Appearance Urine pH Ur Specific [place] Urine Protein Urine Glucose (UA) Urine Ketones Urine Blood Urine Nitrite Urine Bilirubin Urine Urobilinogen Ur Leukocyte Esterase Valproic Acid RPR Titer Labs reviewed - Medication Discharge Medications: Ambulatory Orders Divalproex [Depakote -] 500 mg PO BID 11/17/17 Fluoxetine HCl [Prozac -] 20 mg PO DAILY 11/17/17 Benztropine Mesylate [Cogentin -] 1 mg PO BID #60 tablet 11/18/17 Risperidone [Risperdal -] 1 mg PO BID #60 tablet 11/18/17 Amlodipine Besylate [Norvasc -] 5 mg PO BID #30 tablet 12/16/17 - Diagnosis (1) Azotemia Current Visit: Yes Status: Acute (2) Type 2 diabetes mellitus with hyperglycemia Current Visit: Yes Status: Chronic (3) Alcohol dependence with withdrawal, uncomplicated Current Visit: Yes Status: Acute (4) Nicotine dependence Current Visit: Yes Status: Chronic Qualifiers: Nicotine product type: cigarettes (5) Opioid dependence with withdrawal Current Visit: Yes Status: Acute (6) Asthma Current Visit: No Status: Chronic Qualifiers: Asthma severity: unspecified severity Asthma persistence: unspecified Asthma complication type: uncomplicated Qualified Code(s): J45.909 - Unspecified asthma, uncomplicated (7) Epilepsy Current Visit: Yes Status: Chronic Qualifiers: Epilepsy type: unspecified Intractability: not intractable Status epilepticus: without status epilepticus Qualified Code(s): G40.909 - Epilepsy , unspecified, not intractable, without status epilepticus (8) Hypertension Current Visit: Yes Status: Chronic Qualifiers: Hypertension type: essential hypertension Qualified Code(s): I10 - Essential (primary) hypertension - AMA Did Patient Leave Against Medical Advice: Yes (Patient to call 911 if withdrawal sxs or feeling sick. See PCP in 3 days.)
[2018-02-21] MEDS ORDERED: chlordiazePOXIDE HCL 10 MG CAPSULE PO SCH (23:00)
[2018-02-22] MEDS ORDERED: AZITHROMYCIN 250 MG TABLET PO SCH (10:00)
== END 2018-02-21 15:10 | disposition left against medical advice (07) | DRG 770 ==
LOC: YASAS 13:10 → Y3N 17:43
PROC: HZ2ZZZZ Detoxification Services for Substance Abuse Treatment (ICD-10-PCS; principal; 2018-02-18)
DX: F11.23 Opioid dependence with withdrawal (principal); F10.230 Alcohol dependence with withdrawal, uncomplicated; F14.20 Cocaine dependence, uncomplicated; F12.20 Cannabis dependence, uncomplicated; F17.210 Nicotine dependence, cigarettes, uncomplicated; F19.24 Other psychoactive substance dependence with psychoactive substance-induced mood disorder; I10 Essential (primary) hypertension; E11.65 Type 2 diabetes mellitus with hyperglycemia; J45.909 Unspecified asthma, uncomplicated; G40.909 Epilepsy, unspecified, not intractable, without status epilepticus; G47.00 Insomnia, unspecified; R79.89 Other specified abnormal findings of blood chemistry; Z88.0 Allergy status to penicillin; Z91.013 Allergy to seafood; Z91.19 Patient's noncompliance with other medical treatment and regimen; Z59.0 Homelessness
CPT/HCPCS: 36415; 80053; 80164; 81003; 82962; 85027; 86593; Q0162

== ENCOUNTER 2018-11-28 18:49 | Emergency (ER) | payer OTHER ==
[2018-11-28 19:25] VITALS: BMI 29.5
[2018-11-28] MEDS ORDERED: ALBUTEROL SO4 2.5/IPRATROPIUM 0.5 INH SOL 3 ML VIAL.NEB. NEB ONE ×2 (20:07→20:39)
[2018-11-28] MEDS ORDERED: ASPIRIN 81 MG CHEWABLE TABLETS PO ONE (20:07)
[2018-11-28] MEDS ORDERED: ASPIRIN 81 MG CHEWABLE TABLETS ONE (20:40)
--- NOTE | 2018-11-28 20:53 | PDOC ---
History of Present Illness - General Chief Complaint: Chest Pain Stated Complaint: CHEST PAIN Time Seen by Provider: 11/28/18 20:16 History Source: Patient Exam Limitations: No Limitations - History of Present Illness Initial Comments: HPI: 48 y/o male presenting to [facility] ED from [facility] Detox complaining of substernal chest pain for the past 3-4 days. States the pain is pleuritic and worse when bending forward and with direct palpation. Also endorses occasional SOB. Denies coughing or sneezing. Denies h/o of similar. Family Hx: - Denies familial h/o of CAD or [place] under age of 65 [place]CP[place] the city Social Hx: - Tobacco: active smoker, 2.5 packs per day - EtOH: H/o of abuse, last drank 2-3 days ago, denies withdrawal seizures, last went multiple days w/o approx. 1 month - Street drug: Endorses heroin abuse by snorting, denies ever using needles, last used 2-3 days ago Medical Hx: - Insulin Dependent Diabetes - COPD, on Flovent - Epilepsy, managed with Dilantin Review of Systems: In addition to that documented in the HPI above, the additional ROS was obtained : Constitutional: Denies fevers or chills Head: Denies vision changes ENMT: Denies sore throat CV: Per HPI Resp: Per HPI GI: Denies vomiting or diarrhea : Denies painful urination MSK: Denies recent trauma Skin: Denies new rashes Neuro: Denies new numbness or tingling or weakness Endocrine: Denies polyuria Heme: Denies bleeding or bruising Physical Examination: Constitutional: Well-developed, well-nourished adult male in no acute distress or obvious discomfort. Found left lateral decubitus position on hospital hallway bed. Alert and oriented x4. Answered all questions appropriately and completely. Speech was non-labored, non-pressured. Head: Normocephalic. No obvious external signs of trauma. Cardiovascular / Chest: Regular rate and regular rhythm. No murmur, rubs, clicks , or gallops. Peripheral pulses: radial pulses full. Anterior chest wall tenderness to palpation along sternum. No overlying skin lesions. Respiratory: Breathing unlabored. Equal chest rise and fall. Clear to auscultation bilaterally. Trace expiratory wheezing. No stridor, rales, or rhonchi. Gastrointestinal: abdomen is soft, non-tender, non-distended. No overlying skin lesions or obvious signs of trauma. Neuro: Alert and oriented. Moving all four extremities spontaneously. Gait normal, observed walking through the department unassisted without difficulty. Skin: Warm, dry, and intact. No bruising, rashes, or other lesions. Psych: Affect: appropriate. Mood: normal. MDM: *Reviewed vital signs, nursing notes, and prior visit documentation (if available). 48 y/o male presenting from detox for 3-4 days of chest pain. Denies h/o of IVDA or cardiac history. Febrile and tachycardic without hypotension in triage. Physical exam as described above. No pericardial effusion noted on POCUS. EKG unremarkable for ischemic findings. Low suspicion for ACS, PNA, asthma exacerbation, pericarditis, endocarditis. Pt refused ASA, stating he was allergic. Laboratory study unremarkable for leukocytosis, anemia, or significant electrolyte derangement. Troponin not elevated. Will not repeat as symptoms have been persistent for several days. On review of vital trend from [facility] and this visit, suspect the fever and tachycardia were entered erroneously. Pt had a normal set of vitals documented one min before. Pt reassessed. States he feels somewhat better and would like to be transferred back to [facility]. Discussed imaging and laboratory results with pt. Answered all questions. Provided return precautions. Pt expressed verbal understanding and agreement with plan to discharge with follow up at [facility]. 00:36 Telephone discussion with WILL Mark. Verbally appraised of the pts HPI, ED course, and current plan of management. Stated she had 8 pts awaiting admission and she would not likely have a bed tonight. Would like the pt to be transferred back at 7am. Ordered home Depakote dose and Librium for EtOH withdrawal. Rohan Stewart M.D., PGY2 Emergency Medicine Resident Past History - Past Medical History Allergies/Adverse Reactions: Allergies Allergy/AdvReac Type Severity Reaction Status Date / Time Penicillins Allergy Severe Swelling Verified 11/28/18 15:24 acetaminophen [From Tylenol] Allergy Swelling Verified 11/28/18 15:24 mushroom Allergy Verified 11/28/18 15:24 pepper (genus Capsicum) Allergy Verified 11/28/18 15:24 shellfish derived Allergy Verified 11/28/18 15:24 onion Allergy Uncoded 11/28/18 15:24 Tomato Allergy Uncoded 11/28/18 15:24 Home Medications: Ambulatory Orders Divalproex [Depakote -] 500 mg PO BID 11/17/17 Fluoxetine HCl [Prozac -] 20 mg PO DAILY 11/17/17 Benztropine Mesylate [Cogentin -] 1 mg PO BID #60 tablet 11/18/17 Risperidone [Risperdal -] 1 mg PO BID #60 tablet 11/18/17 Amlodipine Besylate [Norvasc -] 5 mg PO BID #30 tablet 12/16/17 Cyclobenzaprine HCl 5 mg PO DAILY 11/28/18 Sertraline HCl 50 mg PO DAILY 11/28/18 Anemia: No Asthma: Yes Cancer: No Cardiac Disorders: No CVA: No COPD: No CHF: No Dementia: No Diabetes: Yes GI Disorders: No Disorders: No HTN: Yes Hypercholesterolemia: No Kidney Stones: No Liver Disease: No Seizures: Yes Thyroid Disease: No - Surgical History Abdominal Surgery: No Appendectomy: No Cardiac Surgery: No Cholecystectomy: No Lung Surgery: No Neurologic Surgery: No Orthopedic Surgery: No - Reproductive History Testicular Surgery: No - Suicide/Smoking/Psychosocial Hx Smoking History: Never smoked Have you smoked in the past 12 months: Yes Number of Cigarettes Smoked Daily: 50 Information on smoking cessation initiated: No 'Breaking Loose' booklet given: 11/28/18 Hx [facility] Use: Yes ([facility]) Drug/Substance Use Hx: Yes (Heroin, in [facility]) Substance Use Type: Alcohol, Cocaine, Heroin Hx Substance Use Treatment: Yes (detox, rehab, Curently on a MMTP) *Physical Exam - Vital Signs Last Vital Signs Temp Pulse Resp BP Pulse Ox 102.8 F H 116 H 20 128/82 99 11/28/18 19:21 11/28/18 19:21 11/28/18 19:21 11/28/18 19:21 11/28/18 19:21 Vital Signs - Vital Signs #1 Blood Pressure: 111/65 (@ 22:17) MAP: 80 BP Location: Left Arm Blood Pressure Position: Supine Pulse Rate: 74 Respiratory Rate: 16 Temperature: 98.1 F Temperature Source: Oral O2 Sat by Pulse Oximetry (%): 96 Oxygen Delivery Method: Room Air ED Treatment Course - LABORATORY CBC & Chemistry Diagram: 11/28/18 20:32 11/28/18 20:32 - RADIOLOGY Radiology Studies Ordered: Category Date Time Status CHEST PA & LAT [RAD] Stat Radiology 11/28/18 20:06 Taken - Medications Given in the ED: ED Medications Discontinued Medications Generic Name Dose Route Start Last Admin Trade Name Shana PRN Reason Stop Dose Admin Albuterol/Ipratropium 2 amp 11/28/18 20:07 11/28/18 20:53 Duoneb - NEB 11/28/18 20:08 2 amp ONCE ONE Administration Aspirin 324 mg 11/28/18 20:07 11/28/18 20:51 Asa - PO 11/28/18 20:08 Not Given ONCE ONE *DC/Admit/Observation/Transfer Diagnosis at time of Disposition: Pleuritic chest pain - Discharge Dispostion Disposition: HOME Condition at time of disposition: Improved Decision to Admit order: No - Referrals - Patient Instructions Printed Discharge Instructions: DI for Atypical Chest Pain Additional Instructions: You were seen today for chest pain for the past several days. Your chest xray, blood tests, and urine tests were normal today. Your chest pain is not likely from your heart or your lungs. You have have an upper respiratory infection. You should start to feel better in the next few days. Follow up with the doctors at [facility] over the next several days. Good luck on the detox process! Go to the nearest emergency department if your condition worsens or you feel like you need additional emergency evaluation. Print Language: GEORGIAN - Post Discharge Activity
[2018-11-28 20:59] LABS: BASO % 1.1 % (0-2.0); EOS % 3.3 % (0-4.5); HEMATOCRIT 49.4 % (35.4-49); HEMOGLOBIN 17.1 GM/dL (11.7-16.9); LYMPH % 36.6 % (8-40); MCH 31.3 pg (25.7-33.7); MCHC 34.6 g/dl (32.0-35.9); MEAN CELL VOLUME 90.3 fl (80-96); MEAN PLT VOLUME 9.1 fl (7.5-11.1); MONO % 11.8 % (3.8-10.2); NEUT % 47.2 % (42.8-82.8); PLATELET COUNT 271 K/MM3 (134-434); RBC 5.47 M/mm3 (4.00-5.60); WHITE BLOOD COUNT 7.1 K/mm3 (4.0-10.0)
--- NOTE | 2018-11-28 21:10 | PDOC ---
Documentation entered by Licha Dykes SCRIBE, acting as scribe for Javier Moss MD. Javier Moss MD: This documentation has been prepared by the tarynibe, Licha Dykes SCRIBE, under my direction and personally reviewed by me in its entirety. I confirm that the documentation accurately reflects all work, treatment, procedures, and medical decision making performed by me. Attending Attestation - Resident Resident Name: StewartRohan - ED Attending Attestation I have performed the following: I have examined & evaluated the patient, The case was reviewed & discussed with the resident, I agree w/resident's findings & plan, Exceptions are as noted - HPI HPI: 11/28/18 20:30 The patient is a 48-year-old male, with a past medical history of IDDM, current smoker (2.5 ppd), who was sent to the ED from [facility] for 4 days of sharp substernal chest pain. Pain is worsened when he leans forward and is associated with occasional shortness of breath. Pt denies leg swelling. Denies exertional chest pain. Denies pleuritic chest pain. The patient denies fevers, chills, nausea, vomiting, diarrhea, or abdominal pain. Denies any weakness, dizziness, or changes in strength or sensation. Allergies: Penicillins, acetaminophen, mushroom. - Physicial Exam PE: 11/28/18 20:30 GENERAL: Awake, alert, and fully oriented, in no acute distress. HEAD: No signs of trauma EYES: PERRLA, EOMI, sclera anicteric, conjunctiva clear ENT: Auricles normal inspection, hearing grossly normal, nares patent, oropharynx clear without exudates. Moist mucosa NECK: Nontender, no stepoffs, Normal ROM, supple, no lymphadenopathy, JVD, or masses LUNGS: Breath sounds equal, clear to auscultation bilaterally. No wheezes, and no crackles HEART: Regular rate and rhythm, normal S1 and S2, no murmurs, rubs or gallops ABDOMEN: Soft, nontender, normoactive bowel sounds. No guarding, no rebound. No masses EXTREMITIES: Normal range of motion, no edema. No clubbing or cyanosis. No cords, erythema, or tenderness NEUROLOGICAL: Cranial nerves II through XII intact. 5/5 strength and sensation in all extremities, Normal speech, normal gait, normal cerebellar function SKIN: Warm, Dry, normal turgor, no rashes or lesions noted. - Medical Decision Making 11/28/18 21:38 48 M with CP and SOB. Pt febrile in ED. Will r/o infectious process like PNA. Pt with no EKG changes suggestive of pericarditis or myocarditis. No ischemic changes. Will r/o PE with ddimer. Pt denies h/o IVDU, making endocarditis less likely. - Labs, trop, ddimer - CXR - IVF, tylenol 11/28/18 23:14 Labs wnl Trop and dimer negative CXR clear on my read Pt's vitals reassessed - now afebrile (no antipyretic given), vitals wnl Suspect initial set of vitals with fever and tachycardia were entered in mistake , as weight documented at that time is not consistent with pt's weight. Pt is well appearing, with normal vitals. Clinically stable for DC at this time. I discussed the physical exam findings, ancillary test results and final diagnoses with the patient. I answered all of the patient's questions. The patient was satisfied with the care received and felt comfortable with the discharge plan and treatment plan. The patient agrees to follow up with the primary care physician within 24-72 hours.
[2018-11-28 21:23] LABS: ALBUMIN 4.2 g/dl (3.4-5.0); BILIRUBIN,TOTAL 0.2 mg/dL (0.2-1); BLOOD UREA NITROGEN 9.9 mg/dL (7-18); CALCIUM 9.4 mg/dL (8.5-10.1); CREATININE 0.8 mg/dL (0.55-1.3); TOT PROT 7.6 g/dl (6.4-8.2)
[2018-11-28] MEDS: NICOTINE 7 MG/24 HOURS TOPICAL PATCH TD ONE ×2 (21:25→22:27)
[2018-11-28 22:22] VITALS: TEMP 98.1
[2018-11-28 23:30] LABS: PH,URINE 7.5 (5.0-8.0); URINE APPEARANCE CLEAR; URINE BILIRUBIN NEGATIVE (NEGATIVE); URINE COLOR YELLOW; URINE GLUCOSE (UA) NEGATIVE (NEGATIVE); URINE KETONE NEGATIVE (NEGATIVE); URINE LEUK ESTERASE NEGATIVE (NEGATIVE); URINE NITRITE NEGATIVE (NEGATIVE); URINE PROTEIN NEGATIVE (NEGATIVE)
[2018-11-29] MEDS ORDERED: chlordiazePOXIDE HCL 25 MG CAPSULE PO ONE (01:18)
[2018-11-29] MEDS ORDERED: DIVALPROEX SODIUM 500 MG TABLET E.C. PO ONE (01:20)
[2018-11-29] MEDS ORDERED: chlordiazePOXIDE HCL 25 MG CAPSULE ONE (01:41)
[2018-11-29] MEDS ORDERED: DIVALPROEX SODIUM 500 MG TABLET E.C. ONE (01:42)
[2018-11-29 06:37] VITALS: BP 126/62; PULSE 85
--- NOTE | 2018-11-29 11:26 | EKG ---
Test Reason : Blood Pressure : / mmHG Vent. Rate : 071 BPM Atrial Rate : 071 BPM P-R Int : 122 ms QRS Dur : 094 ms QT Int : 382 ms P-R-T Axes : 056 064 048 degrees QTc Int : 415 ms NORMAL SINUS RHYTHM NORMAL ECG WHEN COMPARED WITH ECG OF 23-NOV-2017 22:48, NO SIGNIFICANT CHANGE WAS FOUND Confirmed by Min Carvajal MD ([id number]) on 11/29/2018 11:25:40 AM Referred By: Confirmed By:Min Carvajal MD
== END 2018-11-29 07:04 | disposition home or self-care (01) ==
LOC: JER 18:49
PROC: 3E0F7GC Introduction of Other Therapeutic Substance into Respiratory Tract, Via Natural or Artificial Opening (ICD-10-PCS; principal; 2018-11-28)
DX: R07.89 Other chest pain (principal); I10 Essential (primary) hypertension; E11.9 Type 2 diabetes mellitus without complications; F17.210 Nicotine dependence, cigarettes, uncomplicated; J45.909 Unspecified asthma, uncomplicated; G40.909 Epilepsy, unspecified, not intractable, without status epilepticus; Z79.4 Long term (current) use of insulin; Z91.013 Allergy to seafood; Z88.6 Allergy status to analgesic agent; Z88.0 Allergy status to penicillin
CPT/HCPCS: 36415; 71046-TC-FY; 80053; 81003; 82550; 84484; 85025; 85379; 87040; 87086; 93005; 93010; 99284-25

== ENCOUNTER 2018-11-29 08:24 | Inpatient (IN) | payer OTHER ==
[2018-11-29 08:40] VITALS: BMI 22.1
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
[2018-11-29] MEDS ORDERED: MAGNESIUM CITRATE 300 ML BOTTLE PO PRN (09:31)
[2018-11-29] MEDS ORDERED: METHOCARBAMOL 500 MG TABLET PO PRN (09:31)
[2018-11-29] MEDS ORDERED: MENTHOL/PHENOL 1 EACH UD MM PRN (09:31)
[2018-11-29] MEDS ORDERED: hydrOXYzine PAMOATE 25 MG CAPSULE (FP) PO PRN (09:31)
[2018-11-29] MEDS ORDERED: MAG HYDROX/AL HYDROX/SIMETH 30 ML UNIT-DOSE CUP PO PRN (09:31)
[2018-11-29] MEDS ORDERED: ACETAMINOPHEN 325 MG TABLET (FP) PO PRN ×2 (09:31)
[2018-11-29] MEDS ORDERED: IBUPROFEN 400 MG TABLET (FP) PO PRN (09:31)
[2018-11-29] MEDS ORDERED: MAGNESIUM HYDROX 2400MG/30ML ORAL SUSPENSION 30 ML CUP PO PRN (09:31)
[2018-11-29] MEDS ORDERED: MELATONIN 5 MG TABLETS PO PRN (09:31)
[2018-11-29] MEDS ORDERED: chlordiazePOXIDE HCL 25 MG CAPSULE PO PRN (09:31)
[2018-11-29] MEDS ORDERED: cloNIDine HCL 0.1 MG TABLET PO PRN (10:03)
[2018-11-29] MEDS ORDERED: METHADONE HCL 10 MG TABLET (FOR DETOX USE ONLY) PO ONE (10:15)
[2018-11-29] MEDS: FLUoxetine HCL 20 MG CAPSULE (FP) PO SCH (11:43)
[2018-11-29] MEDS: DIVALPROEX SODIUM 500 MG TABLET E.C. PO SCH ×2 (11:43→22:57)
[2018-11-29] MEDS: CYCLOBENZAPRINE HCL 5 MG TABLET PO SCH (11:43)
[2018-11-29] MEDS: BENZTROPINE MESYLATE 1 MG TABLET (FP) PO SCH ×2 (11:43→22:57)
[2018-11-29] MEDS: amLODIPine BESYLATE 5 MG TABLET (FP) PO SCH ×2 (11:43→22:57)
[2018-11-29] MEDS: PRENATAL VITAMINS W/ FOLIC ACID TABLET (FP) PO SCH (11:44)
[2018-11-29] MEDS: chlordiazePOXIDE HCL 25 MG CAPSULE PO SCH ×3 (11:44→22:58)
[2018-11-29] MEDS: NICOTINE 14 MG/24 HOURS TOPICAL PATCH TD SCH (11:47)
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
--- NOTE | 2018-11-29 20:45 | PN ---
NIC Progress Note Note: Patient was found on the floor in the back hallway. He reports that he felt dizzy, fell and hit his head on the concrete floor. Fall was unwitnessed. Fall Protocol #1 initiated.Patient appears confused He is to be transferred to ER for further evaluation. Endorsed to Dr. Nguyen Vital Signs Temperature 98.4 F 11/29/18 20:45 Pulse Rate 75 11/29/18 20:45 Respiratory Rate 16 11/29/18 20:45 Blood Pressure 96/65 11/29/18 20:45 O2 Sat by Pulse Oximetry (%) Action: Transfer to ER
[2018-11-29] MEDS: risperiDONE 1 MG TABLET (FP) PO SCH (22:57)
[2018-11-29] MEDS: THIAMINE HCL 100 MG TABLET (FP) PO SCH (22:57)
[2018-11-30] MEDS: chlordiazePOXIDE HCL 25 MG CAPSULE PO SCH ×4 (06:21→23:02)
[2018-11-30] MEDS ORDERED: METHADONE HCL 5 MG TABLET (FOR DETOX USE ONLY) ONE (09:28)
[2018-11-30] MEDS ORDERED: METHADONE HCL 10 MG TABLET (FOR DETOX USE ONLY) ONE (09:28)
[2018-11-30] MEDS ORDERED: METHADONE (DETOX) 20 MG, METHADONE (DETOX) 5 MG PO ONE (10:00)
[2018-11-30] MEDS: FLUoxetine HCL 20 MG CAPSULE (FP) PO SCH (10:09)
[2018-11-30] MEDS: CYCLOBENZAPRINE HCL 5 MG TABLET PO SCH (10:09)
[2018-11-30] MEDS: DIVALPROEX SODIUM 500 MG TABLET E.C. PO SCH ×2 (10:10→23:01)
[2018-11-30] MEDS: PRENATAL VITAMINS W/ FOLIC ACID TABLET (FP) PO SCH (10:11)
[2018-11-30] MEDS: NICOTINE 14 MG/24 HOURS TOPICAL PATCH TD SCH (10:11)
[2018-11-30] MEDS: BENZTROPINE MESYLATE 1 MG TABLET (FP) PO SCH ×2 (10:11→23:00)
[2018-11-30] MEDS: risperiDONE 1 MG TABLET (FP) PO SCH ×2 (10:11→23:01)
[2018-11-30] MEDS: amLODIPine BESYLATE 5 MG TABLET (FP) PO SCH ×2 (10:13→23:01)
--- NOTE | 2018-11-30 14:58 | PN ---
S CIWA - CIWA Score Nausea/Vomitin-Mild Nausea/No Vomiting Muscle Tremors: 3 Anxiety: 2 Agitation: 2 Paroxysmal Sweats: 2 Orientation: 0-Oriented Tacttile Disturbances: 1-Very Mild Itch/Numbness Auditory Disturbances: 0-None Visual Disturbances: 0-None Headache: 1-Very Mild CIWA-Ar Total Score: 12 BHS COWS - Scale Resting Pulse: 0= [place] 80 or Below Sweatin= Chills/Flushing Restless Observation: 0= Sits Still Pupil Size: 0= Normal to Room Light Bone or Joint Aches: 2= Severe Diffuse Aches Runny Nose/ Eye Tearin= Nasal Congestion GI Upset > 30mins: 2= Nausea/Diarrhea Tremor Observation of Outstretched Hands: 2= Slight Tremor Visible Yawning Observation: 2= >3x During Session Anxiety or Irritability: 2=Irritable/Anxious Goose Flesh Skin: 0=Smooth Skin COWS Score: 12 BHS Progress Note (SOAP) Subjective: patient had unwitnessed fall on 11/29/18 evaluated by ER negative finding return to detox patient had witnessed fall in front of nursing station today assisted with wheelchair to room patient stated that he sat on his left ankle that his left leg "" since teenager patient refuses to describe in detail regarding "" left leg left ankle skin warm and intact no redness no swell ankle full passive movement +2 pedal pulse begin fall protocal #2 patient continues ambulating on hallway independently e ramiro received nurse call that the patient lay himself seat on the floor "according to the rosales" discontinue fall protocol #2 continue fall protocol #1 Objective: 11/30/18 15:22 Vital Signs Temperature 97.1 F L 11/30/18 13:35 Pulse Rate 73 11/30/18 13:35 Respiratory Rate 18 11/30/18 13:35 Blood Pressure 111/72 11/30/18 13:35 O2 Sat by Pulse Oximetry (%) Laboratory Last Values POC Glucometer 98 UNITS (80-120) 11/29/18 20:56 Valproic Acid 60.0 ug/ml (50-100) 11/30/18 07:00 RPR Titer Nonreactive (NONREACTIVE) 11/29/18 10:30 HIV 1&2 Antibody Screen Cancelled 08/13/19 10:30 HIV P24 Antigen Cancelled d 11/29/18 10:30 lab note 11/30/18 15:24 see 11/28/2018 lab result Assessment: 11/30/18 15:24 alcohol and opiate withdrawal sx Plan: continue librium and opiate detox regimen
[2018-11-30 17:08] VITALS: TEMP 97
[2018-11-30] MEDS ORDERED: NALOXONE HCL 0.4 MG/ML VIAL IM ONE (17:30)
[2018-11-30] MEDS ORDERED: NALOXONE HCL 0.4 MG/ML VIAL ONE (17:31)
--- NOTE | 2018-11-30 17:55 | RAPID ---
Physical Examination Vital Signs: Vital Signs Temperature 97 F L 11/30/18 16:30 Pulse Rate 92 H 11/30/18 16:30 Respiratory Rate 18 11/30/18 16:30 Blood Pressure 126/74 11/30/18 16:30 O2 Sat by Pulse Oximetry (%) Findings/Remarks: Rapid response called at 17:24 At bedside, pt found to be unresponsive, with agonal breathing. Patient tachycardic and O2 sat on Pulse ox in the 40's. Manual bag mask ventilation initiated. Narcan x 2 given (intranasally and IM) Patient then vomited. Saturation improved w/ patient being more responsive. 911 called Patient transferred to ER
[2018-11-30 18:09] VITALS: BP 150/75; PULSE 111
--- NOTE | 2018-11-30 18:11 | PN ---
[facility] Progress Note Note: Called to see patient via rapid response. Patient unresponsive, diaphoretic, agonal breathing, tachycardiac. Pulse ox = 40 %. 911 Called. Bag-valve mask ventilation initiated w/ 16 L O2. w/ 1 breath Q5 sec. Narcan 0.4 mg x 2 given (One dose intra-nasally then IM) Patient became more responsive with increase in O2 to 90%. IV line inserted. Patient vomited. Vital Signs 11/30/18 11/30/18 11/30/18 12:30 13:35 16:30 Temperature 97.1 F L 97.1 F L 97 F L Pulse Rate 73 73 92 H Respiratory 18 18 18 Rate Blood Pressure 111/72 111/72 126/74 11/30/18 11/30/18 11/30/18 17:26 17:30 17:35 Temperature Pulse Rate 103 H 99 H 108 H Respiratory Rate Blood Pressure 137/70 142/69 139/78 11/30/18 17:40 Temperature Pulse Rate 111 H Respiratory Rate Blood Pressure 150/75 Patient transferred to [facility] ED via ambulance, breathing on own(R:14) w/ O2 sat 92% @1552. Report given to Dr. Denys Dewitt.
[2018-11-30] MEDS ORDERED: NALOXONE HCL 1 MG/ML ML IM ONE (19:00)
[2018-11-30] MEDS ORDERED: MAGNESIUM SULF 50% (8.12 MEQ/2 ML-1 GM VIAL) IVPB ONE (22:58)
[2018-11-30] MEDS ORDERED: methylPREDNISolone NA SUCC 125 MG/2 ML VIAL IVPB SCH (23:00)
[2018-11-30] MEDS: THIAMINE HCL 100 MG TABLET (FP) PO SCH (23:01)
[2018-11-30 23:29] LABS: ARTERIAL BLD GAS O2 SATURATION 97.8 % (95-98); ARTERIAL BLOOD GAS BASE EXCESS 0.4 meq/l (-2-2); ARTERIAL BLOOD GAS PCO2 53.9 mmHg (35-45); ARTERIAL BLOOD GAS PO2 112 mmHg (80-105); ARTERIAL BLOOD GAS pH 7.32 (7.35-7.45)
[2018-11-30 23:30] LABS: ALLENS TEST POSITIVE
[2018-12-01] MEDS ORDERED: chlordiazePOXIDE HCL 25 MG CAPSULE PO SCH (05:00)
[2018-12-01] MEDS ORDERED: ALBUTEROL SO4 2.5/IPRATROPIUM 0.5 INH SOL 3 ML VIAL.NEB. NEB SCH (08:00)
[2018-12-01] MEDS ORDERED: METHADONE HCL 10 MG TABLET (FOR DETOX USE ONLY) PO ONE (10:00)
[2018-12-02] MEDS ORDERED: chlordiazePOXIDE HCL 10 MG CAPSULE PO PRN
[2018-12-02] MEDS ORDERED: chlordiazePOXIDE HCL 10 MG CAPSULE PO SCH (05:00)
[2018-12-02] MEDS ORDERED: METHADONE (DETOX) 10 MG, METHADONE (DETOX) 5 MG PO ONE (10:00)
--- NOTE | 2018-12-02 18:53 | PN ---
Teaching Attending Note Name of Resident: Teresa Ledesma ATTENDING PHYSICIAN STATEMENT I saw and evaluated the patient. I reviewed the resident's note and discussed the case with the resident. I agree with the resident's findings and plan as documented. SUBJECTIVE: Was involved in rapid response. Pt was found unresponsive. When I arrived pt was seen to be breathing and was given Narcan X 2 , given O2 bagged with mask and nonrebreather. EMS arrived and was sent to [facility] ER.
[2018-12-03] MEDS ORDERED: chlordiazePOXIDE HCL 10 MG CAPSULE PO SCH (05:00)
[2018-12-03] MEDS ORDERED: METHADONE HCL 10 MG TABLET (FOR DETOX USE ONLY) PO ONE (10:00)
[2018-12-04] MEDS ORDERED: chlordiazePOXIDE HCL 10 MG CAPSULE PO ONE (05:00)
[2018-12-04] MEDS ORDERED: METHADONE HCL 5 MG TABLET (FOR DETOX USE ONLY) PO ONE (06:00)
== END 2018-11-30 23:59 | disposition short-term general hospital (02) | DRG 773 ==
LOC: YASAS 08:24 → Y3N 09:41
PROVIDERS: ADMIT Surgery; ATTEND Surgery
PROC: HZ2ZZZZ Detoxification Services for Substance Abuse Treatment (ICD-10-PCS; principal; 2018-11-29)
DX: F10.230 Alcohol dependence with withdrawal, uncomplicated (principal); F11.20 Opioid dependence, uncomplicated; F14.20 Cocaine dependence, uncomplicated; F17.210 Nicotine dependence, cigarettes, uncomplicated; F25.9 Schizoaffective disorder, unspecified; F19.24 Other psychoactive substance dependence with psychoactive substance-induced mood disorder; F43.10 Post-traumatic stress disorder, unspecified; F31.5 Bipolar disorder, current episode depressed, severe, with psychotic features; I10 Essential (primary) hypertension; E11.9 Type 2 diabetes mellitus without complications; J44.9 Chronic obstructive pulmonary disease, unspecified; G40.909 Epilepsy, unspecified, not intractable, without status epilepticus; G47.00 Insomnia, unspecified; R00.0 Tachycardia, unspecified; H91.92 Unspecified hearing loss, left ear; H40.9 Unspecified glaucoma; H54.40 Blindness, one eye, unspecified eye; M54.5 Low back pain; G89.29 Other chronic pain; R40.4 Transient alteration of awareness; R61 Generalized hyperhidrosis; R06.00 Dyspnea, unspecified; R11.10 Vomiting, unspecified; R21 Rash and other nonspecific skin eruption; S09.90XA Unspecified injury of head, initial encounter; R42 Dizziness and giddiness; Z91.14 Patient's other noncompliance with medication regimen; Z85.840 Personal history of malignant neoplasm of eye; Z79.4 Long term (current) use of insulin; Z88.0 Allergy status to penicillin; Z88.6 Allergy status to analgesic agent; Z91.013 Allergy to seafood; Z91.048 Other nonmedicinal substance allergy status; W18.39XA Other fall on same level, initial encounter; Y93.9 Activity, unspecified; Y92.238 Other place in hospital as the place of occurrence of the external cause
CPT/HCPCS: 36415; 36600; 80164; 82803; 82962; 86593; 87389; J2794

== ENCOUNTER 2018-11-29 21:26 | Emergency (ER) | payer OTHER | END 2018-11-30 06:08 | disposition home or self-care (01) | LOC: JER 21:26 ==

== ENCOUNTER 2018-11-30 18:08 | Inpatient (IN) | payer OTHER ==
[2018-11-30] MEDS ORDERED: SODIUM CHLORIDE 0.9% 1000 ML INFUS.BAG IV ONE (18:52)
--- NOTE | 2018-11-30 19:08 | PDOC ---
History of Present Illness - General Chief Complaint: Overdose Stated Complaint: OVERDOSE - History of Present Illness Initial Comments: The pt is a 48M w/ a history of substance abuse who presents from [facility] 2/2 unresponsiveness and hypoxia. Was noted to be SpO2 40% on RA at [facility], received Narcan 2mg IM and 2mg IN, and had subsequent improvement in mentation and SpO2 to 90s on RA. Upon arrival pt unable to provide history but protecting airway with >95% on 4L NC. States he feels 'okay'. 11/30/18 21:41 Past History - Past Medical History Allergies/Adverse Reactions: Allergies Allergy/AdvReac Type Severity Reaction Status Date / Time Penicillins Allergy Severe Swelling Verified 11/30/18 18:24 acetaminophen [From Tylenol] Allergy Swelling Verified 11/30/18 18:24 aspirin Allergy Verified 11/30/18 18:24 mushroom Allergy Verified 11/30/18 18:24 pepper (genus Capsicum) Allergy Verified 11/30/18 18:24 shellfish derived Allergy Verified 11/30/18 18:24 onion Allergy Uncoded 11/30/18 18:24 Tomato Allergy Uncoded 11/30/18 18:24 Home Medications: Ambulatory Orders Divalproex [Depakote -] 500 mg PO BID 11/17/17 Fluoxetine HCl [Prozac -] 20 mg PO DAILY 11/17/17 Benztropine Mesylate [Cogentin -] 1 mg PO BID #60 tablet 11/18/17 Risperidone [Risperdal -] 1 mg PO BID #60 tablet 11/18/17 Amlodipine Besylate [Norvasc -] 5 mg PO BID #30 tablet 12/16/17 Cyclobenzaprine HCl 5 mg PO DAILY 11/28/18 Methadone (Detox) [Dolophine -] 0 mg PO ASDIR 11/30/18 Anemia: No Asthma: Yes Cancer: No Cardiac Disorders: No CVA: No COPD: No CHF: No Dementia: No Diabetes: Yes GI Disorders: No Disorders: No HTN: Yes Hypercholesterolemia: No Kidney Stones: No Liver Disease: No Seizures: Yes (onmeds) Thyroid Disease: No - Surgical History Abdominal Surgery: No Appendectomy: No Cardiac Surgery: No Cholecystectomy: No Lung Surgery: No Neurologic Surgery: No Orthopedic Surgery: No - Reproductive History Testicular Surgery: No - Suicide/Smoking/Psychosocial Hx Smoking History: Unknown if ever smoked Have you smoked in the past 12 months: No Number of Cigarettes Smoked Daily: 40 Information on smoking cessation initiated: No 'Breaking Loose' booklet given: 11/29/18 Hx Alcohol Use: No Drug/Substance Use Hx: No Substance Use Type: Alcohol, Cocaine, Heroin, Marijuana, Opiates Hx Substance Use Treatment: Yes (multiple detoxes) Review of Systems - Review of Systems Able to Perform ROS?: No (2/2 medical condition) Is the patient limited Slovenian proficient: No *Physical Exam - Vital Signs Last Vital Signs Temp Pulse Resp BP Pulse Ox 96.4 F L 50 L 16 90/56 L 100 11/30/18 18:37 11/30/18 18:10 11/30/18 18:10 11/30/18 18:10 11/30/18 18:10 - Physical Exam Comments: GENERAL: Awake, withdraws to pain, opens eyes to voice, does not follow commands HEAD: No signs of trauma, normocephalic, atraumatic EYES: PERRLA, EOMI, sclera anicteric, conjunctiva clear ENT: Hearing grossly normal, nares patent, oropharynx clear without exudates. Moist mucosa LUNGS: B/l rhonchi, R>L HEART: Regular rate and rhythm, normal S1 and S2, no murmurs appreciated ABDOMEN: Soft, no grimace on palpation, normoactive bowel sounds EXTREMITIES: Normal inspection, Normal range of motion, no edema. No clubbing or cyanosis NEUROLOGICAL: Lethargic, not following commands, withdraws to pain, opens eyes to voice SKIN: Warm, Dry 11/30/18 19:07 ED Treatment Course - LABORATORY CBC & Chemistry Diagram: 12/06/18 07:30 12/06/18 07:30 - Medications Given in the ED: ED Medications Discontinued Medications Generic Name Dose Route Start Last Admin Trade Name Freq PRN Reason Stop Dose Admin Sodium Chloride 1,000 ml 11/30/18 18:52 11/30/18 18:59 Normal Saline - IV 11/30/18 18:53 1,000 ml ONCE ONE Administration Medical Decision Making - Medical Decision Making The pt is a 48M w/ a history of heroin abuse who presents from [facility] for lethargy and hypoxia ED Course Labs sent Pt placed on nasal cannula from non-rebreather with SpO2 in mid 90s Pt given IVF Pt with diffuse rhonchi, R>L, likely PNA -Will obtain CXR and start on empiric IV abx for hospital acquired PNA Pt later persistently lethargic but protecting airway Pt placed on BiPap with subsequent improvement in mentation Plan for admission for PNA and IV abx Case signed out to [facility] Admitting by Dr. Meyer 11/30/18 21:56 *DC/Admit/Observation/Transfer Diagnosis at time of Disposition: Hospital acquired PNA, Heroin abuse Altered mental status Qualifiers: Altered mental status type: unspecified Qualified Code(s): R41.82 - Altered mental status, unspecified - Discharge Dispostion Condition at time of disposition: Fair Decision to Admit order: Yes - Referrals - Patient Instructions - Post Discharge Activity
[2018-11-30 19:33] LABS: BASO % 0.6 % (0-2.0); EOS % 0.5 % (0-4.5); HEMATOCRIT 46.7 % (35.4-49); HEMOGLOBIN 15.6 GM/dL (11.7-16.9); LYMPH % 7.8 % (8-40); MCH 30.7 pg (25.7-33.7); MCHC 33.4 g/dl (32.0-35.9); MEAN CELL VOLUME 91.9 fl (80-96); MEAN PLT VOLUME 8.8 fl (7.5-11.1); MONO % 5.5 % (3.8-10.2); NEUT % 85.6 % (42.8-82.8); PLATELET COUNT 208 K/MM3 (134-434); RBC 5.08 M/mm3 (4.00-5.60); RDW 13.1 % (11.9-15.9)
[2018-11-30] MEDS ORDERED: CEFEPIME HCL/D5W 1 GM/50 ML BAG IVPB ONE (19:42)
[2018-11-30] MEDS ORDERED: VANCOMYCIN 1 GM in D5W (PRE-DOCKED) 1,000 MG/250 ML IVPB ONE (19:42)
[2018-11-30] MEDS ORDERED: CEFEPIME 1 GM/100 ML BAG IVPB ONE (20:22)
[2018-11-30] MEDS ORDERED: VANCOMYCIN 1 GRAM (PRE-DOCKED) 1,000 MG/250 ML BAG IVPB ONE (20:22)
[2018-11-30 20:24] LABS: CARBOXYHEMOGLOBIN 0.8 % (0-2)
[2018-11-30 20:28] LABS: ALBUMIN 3.6 g/dl (3.4-5.0); BILIRUBIN,TOTAL 0.1 mg/dL (0.2-1); BLOOD UREA NITROGEN 16.1 mg/dL (7-18); CALCIUM 8.7 mg/dL (8.5-10.1); CREATININE 0.9 mg/dL (0.55-1.3); POTASSIUM 4.2 mmol/L (3.5-5.1); TOT PROT 6.7 g/dl (6.4-8.2)
[2018-11-30 20:41] LABS: ARTERIAL BLD GAS O2 SATURATION 85.7 % (95-98); ARTERIAL BLOOD GAS BASE EXCESS 0.4 meq/l (-2-2); ARTERIAL BLOOD GAS PCO2 52.7 mmHg (35-45); ARTERIAL BLOOD GAS PO2 54.6 mmHg (80-105); ARTERIAL BLOOD GAS pH 7.33 (7.35-7.45)
[2018-11-30 20:42] LABS: ALLENS TEST POSITIVE
--- NOTE | 2018-11-30 21:34 | PN ---
Teaching Attending Note Name of Resident: Elly Baez ATTENDING PHYSICIAN STATEMENT I saw and evaluated the patient. I reviewed the resident's note and discussed the case with the resident. I agree with the resident's findings and plan as documented. SUBJECTIVE: Patient is a 48 year old man with a PMH of Insulin-treated DM, Epilepsy, Penicillin allergy, Alcohol and Heroin Dependence who presents to the ER from [facility] after an unwitnessed fall. Patient states he was walking, put pressure on his bad leg (has multiple surgeries on his leg) which caused him to lose his balance, trip, fall and slightly hit his head. Patient denies LOC. Denies preceding dizziness, Chest pain, palpitations or any prodromal symptoms. Patient has productive cough, chest tightness and SOB intermittently for 2 months. He denies current SOB or chest tightness now but was evaluated in the ER twicw in the past 2 days for chest pain. The patient denies headache. Denies fever, chills, vomiting, diarrhea and constipation. Denies dysuria, frequency, urgency and hematuria. Got 2 doses of Narcan without significant change in mentation. OBJECTIVE: Somnolent but arousable; on BiPAP Vital Signs Period Temp Pulse Resp BP Sys/[place] Pulse Ox Last 24 Hr 96.4 F 50-94 16-19 90-133/56-70 89-100 HEENT: No Jaundice, eye redness or discharge, PERRLA. Normocephalic, atraumatic. External ears are normal; No nasal discharge. Neck: Supple, nontender. No palpable adenopathy or thyromegaly. No JVD Chest: Good effort. Diffuse wheezing. Clear to percussion. Heart: Regular. No S3, rub or murmur Abdomen: Not distended, soft, nontender and no HSM. No rebound or guarding. Normal bowel sounds. Ext: Peripheral pulses intact. No leg edema. Skin: Warm and dry. No petechiae, rash or ecchymosis. Neuro: Somnolent but arousable. Unable to answer questions or follow commands. CN 2-12 grossly intact. Sensation grossly intact in all four extremities and DTR are symmetric. Psych: Cannot be assessed. Home Medications Medication Instructions Recorded Divalproex [Depakote -] 500 mg PO BID 11/17/17 Fluoxetine HCl [Prozac -] 20 mg PO DAILY 11/17/17 Benztropine Mesylate [Cogentin -] 1 mg PO BID #60 tablet 11/18/17 Risperidone [Risperdal -] 1 mg PO BID #60 tablet 11/18/17 Amlodipine Besylate [Norvasc -] 5 mg PO BID #30 tablet 12/16/17 Cyclobenzaprine HCl 5 mg PO DAILY 11/28/18 Sertraline HCl 50 mg PO DAILY 11/28/18 Abnormal Lab Results 11/30/18 11/30/18 11/30/18 18:54 18:59 19:30 WBC 12.0 H Absolute Neuts (auto) 10.3 H Neutrophils % 85.6 H D Lymphocytes % 7.8 L D ABG pH ABG pCO2 at Pt Temp ABG pO2 at Pt Temp ABG O2 Sat (Measured) Anion Gap 6 L Random Glucose 125 H Lactic Acid 2.9 H* Total Bilirubin 0.1 L AST 14 L 11/30/18 20:34 WBC Absolute Neuts (auto) Neutrophils % Lymphocytes % ABG pH 7.33 L ABG pCO2 at Pt Temp 52.7 H ABG pO2 at Pt Temp 54.6 L ABG O2 Sat (Measured) 85.7 L Anion Gap Random Glucose Lactic Acid Total Bilirubin AST ASSESSMENT AND PLAN: 1. Acute hypoxic and hypercapnic respiratory failure/Fall/AMS/Pneumonia and Possible sepsis- Respiratory failure and AMS likely due to effects of illicit drug use and ?aspiration pneumonia. Lactic acidosis suggests he may have had a seizure. CXR shows possible RML and RLL infiltrate. Head CT showed no acute intracranial pathology but old fractures of nasal bones, left zygmatic arch and chronic deformity of the floor of the left orbit. Has methadone, benzodiazepine and cocaine in his urine toxicology. Repeat temperature is normal. Repeat ABG pending - if no improvement, then will intubate and admit to the ICU. Will treat with Vancomycin, Levofloxacin, Solumedrol, MgSO4, and Duoneb. Sepsis work up done. Continue IV NS and trend lactic acid. Elevated troponin is likely stress related - will trend to rule out ACS. No significant ischemic changes on EKG. 2. DM For now, we will hold the home diabetes drugs and implement sliding scale insulin regimen. Provide comprehensive diabetes care with patient teaching and counseling about the importance of adherence to prescribed diabetes regimen, euglycemia, eye care and foot care. 3. Tobacco Use Counseled on risks associated with tobacco use. We will provide patient all the necessary assistance to facilitate smoking cessation and prescribe Nicotine patch. 4. Polysubstance and Alcohol abuse - Will implement [facility] alcohol withdrawal protocol and do neurochecks. Implement seizure, fall and aspiration precautions. Monitor for drug withdrawal. Treat with thiamine and folic acid and monitor electrolytes (Ca,Mg,K,P). Counseled patient about abstaining from alcohol and illicit drugs. Will consult digital advertising specialist and refer to alcohol/drug detox upon discharge. 5. DVT prophylaxis - Lovenox 40 mg SQ q 24 hours. 6. Advance directives - Full code
[2018-11-30 21:53] LABS: URINE APPEARANCE CLEAR; URINE BILIRUBIN NEGATIVE (NEGATIVE); URINE COLOR YELLOW; URINE GLUCOSE (UA) TRACE (NEGATIVE); URINE KETONE NEGATIVE (NEGATIVE); URINE LEUK ESTERASE NEGATIVE (NEGATIVE); URINE NITRITE NEGATIVE (NEGATIVE); URINE PROTEIN NEGATIVE (NEGATIVE); URINE UROBILINOGEN 0.2 mg/dL (0.2-1.0)
--- NOTE | 2018-11-30 22:18 | HP ---
CHIEF COMPLAINT: AMS, SOB, Chest pain PCP: [facility] HISTORY OF PRESENT ILLNESS: Patient is a 48 year old male with PMH of IDDM, HTN, epilepsy, alcohol and heroin abuse, and anxiety who was BIBEMS from [facility] with AMS. Pt was in the ED yesterday complaining of SOB and productive cough for about about a week. He complained of associated chest pain, but denied any fevers, chills, nausea, vomiting, or abd pain. In the ED his troponins were neg x2 and a CXR showed basilar markings area representative of some focal atelectasis or early infiltrate. Pt's vitals were stable and symptoms improved, so he was discharged back to [facility]. Today, around 5pm, he was found to be unresponsive with agonal breathing, tachycardic, and satting in the 40s. Manual bag mask ventilation was initiated and he was administered Narcan x2 with only mild improvement. He was then brought to the ED. On arrival, his vitals were T: 96.4, BP: 90/56, HR: 50, RR: 16, and O2: 89 on NC. Pt continues to complain of worsening SOB and mild chest pain. ER course was notable for: (1) Leukocytosis: 12, latic acid: 2.9, hypercapnic at pCO2: 52.7 (2) Given 1L bolus NS, started on 1gm cefepime/vanc (3) CXR: basilar infiltrate, increased from prior image (awaiting final report) (4) Pt placed on BIPAP machine. Repeat ABG showed no improvement. Per ICU team, pt intubated. Recent Travel: denies PAST MEDICAL HISTORY: IDDM HTN Epilepsy Alcohol and heroin use PAST SURGICAL HISTORY: Denies Social History: Smokin.5 ppd Alcohol: 2 pints 4-5 days per weel Drugs: heroin and cocaine Family History: Pt unaware of any family hx Allergies Penicillins Allergy (Severe, Verified 11/30/18 18:24) Swelling acetaminophen [From Tylenol] Allergy (Verified 11/30/18 18:24) Swelling aspirin Allergy (Verified 11/30/18 18:24) mushroom Allergy (Verified 11/30/18 18:24) pepper (genus Capsicum) Allergy (Verified 11/30/18 18:24) shellfish derived Allergy (Verified 11/30/18 18:24) onion Allergy (Uncoded 11/30/18 18:24) Tomato Allergy (Uncoded 11/30/18 18:24) HOME MEDICATIONS: Home Medications Medication Instructions Recorded Divalproex [Depakote -] 500 mg PO BID 11/17/17 Fluoxetine HCl [Prozac -] 20 mg PO DAILY 11/17/17 Benztropine Mesylate [Cogentin -] 1 mg PO BID #60 tablet 11/18/17 Risperidone [Risperdal -] 1 mg PO BID #60 tablet 11/18/17 Amlodipine Besylate [Norvasc -] 5 mg PO BID #30 tablet 12/16/17 Cyclobenzaprine HCl 5 mg PO DAILY 11/28/18 Sertraline HCl 50 mg PO DAILY 11/28/18 REVIEW OF SYSTEMS CONSTITUTIONAL: chills Absent: fever, diaphoresis, generalized weakness, malaise, loss of appetite, weight change HEENT: Absent: rhinorrhea, nasal congestion, throat pain, throat swelling, difficulty swallowing, mouth swelling, ear pain, eye pain, visual changes CARDIOVASCULAR: chest pain Absent: syncope, palpitations, irregular heart rate, lightheadedness, peripheral edema RESPIRATORY: cough, shortness of breath Absent: dyspnea with exertion, orthopnea, wheezing, stridor, hemoptysis GASTROINTESTINAL: Absent: abdominal pain, abdominal distension, nausea, vomiting, diarrhea, constipation, melena, hematochezia GENITOURINARY: Absent: dysuria, frequency, urgency, hesitancy, hematuria, flank pain, genital pain MUSCULOSKELETAL: Absent: myalgia, arthralgia, joint swelling, back pain, neck pain SKIN: Absent: rash, itching, pallor HEMATOLOGIC/IMMUNOLOGIC: Absent: easy bleeding, easy bruising, lymphadenopathy, frequent infections ENDOCRINE: Absent: unexplained weight gain, unexplained weight loss, heat intolerance, cold intolerance NEUROLOGIC: Absent: headache, focal weakness or paresthesias, dizziness, unsteady gait, seizure, mental status changes, bladder or bowel incontinence PSYCHIATRIC: Absent: anxiety, depression, suicidal or homicidal ideation, hallucinations. PHYSICAL EXAMINATION Vital Signs - 24 hr 11/30/18 11/30/18 11/30/18 18:10 18:37 20:35 Temperature 96.4 F L Pulse Rate 50 L Pulse Rate [ 94 H Apical] Respiratory 16 19 Rate Blood Pressure 90/56 L Blood Pressure 133/70 [Right Arm] O2 Sat by Pulse 100 89 L Oximetry (%) 11/30/18 11/30/18 11/30/18 20:38 21:41 22:05 Temperature 98.3 F Pulse Rate Pulse Rate [ Apical] Respiratory Rate Blood Pressure Blood Pressure [Right Arm] O2 Sat by Pulse 94 L 100 Oximetry (%) GENERAL: Patient resting comfortably, in no acute distress. Now intubated. HEAD: Normal with no signs of trauma. EYES: Pupils equal, round and reactive to light, extraocular movements intact, sclera anicteric, conjunctiva clear. No lid lag. EARS, NOSE, THROAT: Ears normal, nares patent, oropharynx clear without exudates. Moist mucous membranes. NECK: Normal range of motion, supple without lymphadenopathy, JVD, or masses. LUNGS: Diffuse wheezes, prominent crackles at bases. No accessory muscle use. Pt now intubated. HEART: Regular rate and rhythm, normal S1 and S2 without murmur, rub or gallop. ABDOMEN: Soft, nontender, not distended, normoactive bowel sounds, no guarding, no rebound, no masses. No hepatomegaly or splenomegaly. MUSCULOSKELETAL: Normal range of motion at all joints. No bony deformities or tenderness. No CVA tenderness. UPPER EXTREMITIES: 2+ pulses, warm, well-perfused. No cyanosis. No clubbing. No peripheral edema. LOWER EXTREMITIES: 2+ pulses, warm, well-perfused. No calf tenderness. No peripheral edema. NEUROLOGICAL: Cranial nerves II-XII intact. Normal speech. Gait not observed. SKIN: Warm, dry, normal turgor, no rashes or lesions noted, normal capillary refill. Laboratory Results - last 24 hr CBC, BMP 11/30/18 18:54 11/30/18 18:59 Urine Test Results Urine Color Yellow Urine Appearance Clear Urine pH 6.0 (5.0-8.0) Ur Specific [place] 1.022 (1.010-1.035) Urine Protein Negative (NEGATIVE) Urine Glucose (UA) Trace (NEGATIVE) Urine Ketones Negative (NEGATIVE) Urine Blood Negative (NEGATIVE) Urine Nitrite Negative (NEGATIVE) Urine Bilirubin Negative (NEGATIVE) Ur Leukocyte Esterase Negative (NEGATIVE) Hepatic Panel Total Bilirubin 0.1 mg/dL (0.2-1) L AST 14 U/L (15-37) L ALT 19 U/L (13-61) Alkaline Phosphatase 91 U/L (45-117) Albumin 3.6 g/dl (3.4-5.0) ABG Results ABG pH 7.33 (7.35-7.45) L ABG pCO2 at Pt Temp 52.7 mmHg (35-45) H ABG pO2 at Pt Temp 54.6 mmHg (80-105) L ABG HCO3 27.0 mmol/L (22-27) ABG O2 Sat (Measured) 85.7 % (95-98) L ABG O2 Content 18.7 % vol (15-22) ABG Base Excess 0.4 meq/l (-2-2) ASSESSMENT/PLAN: Patient is a 48 year old male with PMH of IDDM, HTN, epilepsy, alcohol and heroin abuse, and anxiety who was BIBEMS from [facility] with AMS. #Sepsis 2/2 PNA with acute hypercapnic respiratory failure Cont pt on vanc 1gm and levofloxacin 750mg Q24H Cont solumedrol 60mg Q6H Pt sedated on propofol and now intubated. Vent settings V/C mode, FiO2 50%, RR 14, tidal volume 450, PEEP 5 Pending blood, urine, sputum cx CXR: RLL infiltrate F/u CT chest and head Lactic acid 2.9 --> 3.2. Cont to trend Hidrate with IV NS Consulting ID, f/u recommendations #Mild tropinemia Could be 2/2 sepsis but with hx of persistent chest pain cannot r/o ACS Trop neg x2 yesterday. Today, trop: 0.04. F/u repeat EKG: NSR, no ST elevations of depressions Cont cardiac monitoring #Substance abuse Pt was in [facility] for detox prior to arrival, receiving librium taper and methadone taper Utox pos for methadone, cocaine, benzos Pt is sedated with propofol. Therefore, no need to cont detox with librium or methadone at this time Will give thiamine/folic acid daily #HTN Hold BP meds for now as pt was septic #IDDM SSI TIDAC #Epilepsy Pt intubated, cannot cont depakote po 500mg BID. Spoke with pharmacy and depakote 500mg IV BID is appropriate. #FEN Cont IV NS @ 100ml/hr Monitor lytes and replete as needed NPO for now given AMS and intubation #DVT ppx Heparin SQ #Dispo Monitor in ICU Visit type - Emergency Visit Emergency Visit: Yes ED Registration Date: 11/30/18 Care time: The patient presented to the Emergency Department on the above date and was hospitalized for further evaluation of their emergent condition. - New Patient This patient is new to me today: Yes Date on this admission: 12/01/18 - Critical Care Critical Care patient: Yes Total Critical Care Time (in minutes): 45 Critical Care Statement: The care of this patient involved high complexity decision making to prevent further life threatening deterioration of the patient 's condition and/or to evaluate & treat vital organ system(s) failure or risk of failure. ATTENDING PHYSICIAN STATEMENT I saw and evaluated the patient. I reviewed the resident's note and discussed the case with the resident. I agree with the resident's findings and plan as documented. SUBJECTIVE: OBJECTIVE: ASSESSMENT AND PLAN:
[2018-11-30 22:24] LABS: OPIATES, URI NEGATIVE ng/ml (CUTOFF=300); PHENCYCLIDINE,URINE NEGATIVE ng/ml (CUTOFF=25); URINE AMPHETAMINES NEGATIVE ng/ml (CUTOFF=500); URINE BARBITURATES NEGATIVE ng/ml (CUTOFF=200)
[2018-11-30 22:28] LABS: COCAINE, UR POSITIVE ng/ml (CUTOFF=300); METHADONE, UR POSITIVE ng/ml (CUTOFF=300); URINE BENZODIAZEPINES POSITIVE ng/ml (CUTOFF=200)
--- NOTE | 2018-11-30 22:49 | PDOC ---
Documentation entered by Ani Jose SCRIBE, acting as scribe for Briseyda Birmingham DO. Briseyda Birmingham DO: This documentation has been prepared by the Rebeca moore Mackenzie, SCRIBE, under my direction and personally reviewed by me in its entirety. I confirm that the documentation accurately reflects all work, treatment, procedures, and medical decision making performed by me. Attending Attestation - Resident Resident Name: Dre Dewitt - ED Attending Attestation I have performed the following: I have examined & evaluated the patient, The case was reviewed & discussed with the resident, I agree w/resident's findings & plan - HPI HPI: The patient is a 48 year old male with a significant PMH of heroin use (now on methadone last dose at 10AM) presenting to the ED from [facility] because he was found unresponsive with an oxygen saturation of 40% 4 mg of Narcan was administered and oxygen sats came up to 90%. Patient is somewhat lethargic on presentation and it is noted that he had a fall yesterday. Patient denies any genitourinary symptoms. 11/30/18 21:35 - Physicial Exam PE: Agree with resident exam. 11/30/18 21:40 - Critical Care Time Total Critical Care Time: 60 Critical Care Statement: The care of this patient involved high complexity decision making to prevent further life threatening deterioration of the patient 's condition and/or to evaluate & treat vital organ system(s) failure or risk of failure. - Medical Decision Making 11/30/18 22:46 48-year-old male seen here yesterday with chest pain with troponin negative 2 now with increasing lethargy and shortness of breath Chest x-ray consistent with right-sided multi lobar infiltrate Patient hypoxic on arterial blood gas BiPAP initiated with improved mental status Patient is maintaining his airway Admitted to medical service, IV antibiotics
[2018-11-30] MEDS ORDERED: MAGNESIUM SULF 50% (8.12 MEQ/2 ML-1 GM VIAL) IVPB ONE (23:24)
[2018-11-30] MEDS: methylPREDNISolone NA SUCC 40 MG/1 ML VIAL IVPB SCH (23:40)
[2018-11-30] MEDS ORDERED: methylPREDNISolone NA SUCC 40 MG/1 ML VIAL ONE (23:45)
[2018-11-30] MEDS ORDERED: MAGNESIUM 1GM/D5W - 1 GM/100 ML IVPB IVPB ONE (23:45)
[2018-12-01] MEDS ORDERED: RAPID SEQUENCE INTUBATION KIT NR ONE (00:01)
[2018-12-01] MEDS ORDERED: PROPOFOL 1,000,000 MCG/100 ML VIAL ONE (00:11)
--- NOTE | 2018-12-01 00:30 | PDOC ---
*Physical Exam - Vital Signs Last Vital Signs Temp Pulse Resp BP Pulse Ox 98.3 F 85 19 115/77 100 11/30/18 22:05 11/30/18 22:57 11/30/18 20:35 11/30/18 22:57 11/30/18 22:57 ED Treatment Course - LABORATORY CBC & Chemistry Diagram: 11/30/18 18:54 11/30/18 18:59 - ADDITIONAL ORDERS Additional order review: Laboratory Results 11/30/18 11/30/18 11/30/18 20:34 20:15 19:30 Anticoagulation Therapy No Result Required. Puncture Site Right brachial ABG pH 7.33 L ABG pCO2 at Pt Temp 52.7 H ABG pO2 at Pt Temp 54.6 L ABG HCO3 27.0 ABG O2 Sat (Measured) 85.7 L ABG O2 Content 18.7 ABG Base Excess 0.4 Og Test Positive Carboxyhemoglobin 0.8 Methemoglobin 0.5 O2 Delivery Device No Result Required. Oxygen Flow Rate 4l Vent Mode No Result Required. Vent Rate No Result Required. Mechanical Rate No Result Required. Pressure Support Vent No Result Required. Sodium Potassium Chloride Carbon Dioxide Anion Gap BUN Creatinine Est GFR (CKD-EPI)AfAm Est GFR (CKD-EPI)NonAf Random Glucose Lactic Acid 2.9 H* Calcium Total Bilirubin AST ALT Alkaline Phosphatase Troponin I Total Protein Albumin 11/30/18 18:59 Anticoagulation Therapy Puncture Site ABG pH ABG pCO2 at Pt Temp ABG pO2 at Pt Temp ABG HCO3 ABG O2 Sat (Measured) ABG O2 Content ABG Base Excess Og Test Carboxyhemoglobin Methemoglobin O2 Delivery Device Oxygen Flow Rate Vent Mode Vent Rate Mechanical Rate Pressure Support Vent Sodium 142 Potassium 4.2 Chloride 105 Carbon Dioxide 31 Anion Gap 6 L BUN 16.1 Creatinine 0.9 Est GFR (CKD-EPI)AfAm 115.83 Est GFR (CKD-EPI)NonAf 99.94 Random Glucose 125 H Lactic Acid Calcium 8.7 Total Bilirubin 0.1 L AST 14 L ALT 19 Alkaline Phosphatase 91 Troponin I 0.04 Total Protein 6.7 Albumin 3.6 11/30/18 18:54 RBC 5.08 MCV 91.9 MCHC 33.4 RDW 13.1 MPV 8.8 Neutrophils % 85.6 H D Lymphocytes % 7.8 L D Monocytes % 5.5 Eosinophils % 0.5 D Basophils % 0.6 - Medications Given in the ED: ED Medications Discontinued Medications Generic Name Dose Route Start Last Admin Trade Name Freq PRN Reason Stop Dose Admin Cefepime HCl 1 gm in 50 mls @ 100 mls/hr 11/30/18 19:42 11/30/18 20:35 Maxipime 1 Gm Premix Ivpb IVPB 11/30/18 20:11 100 mls/hr ONCE ONE Administration Sodium Chloride 1,000 ml 11/30/18 18:52 11/30/18 18:59 Normal Saline - IV 11/30/18 18:53 1,000 ml ONCE ONE Administration Vancomycin HCl 1,000 mg 11/30/18 19:42 11/30/18 21:26 Vancomycin (Pre-Docked) IVPB 11/30/18 19:43 1,000 mg ONCE ONE Administration Protocol Medical Decision Making - Medical Decision Making 12/01/18 00:28 Patient's ABG worsening on bipap, not responding to commands. Decision made to intubate for respiratory failure and airway protection. *DC/Admit/Observation/Transfer Diagnosis at time of Disposition: Hospital acquired PNA, Heroin abuse Altered mental status Qualifiers: Altered mental status type: unspecified Qualified Code(s): R41.82 - Altered mental status, unspecified - Discharge Dispostion Condition at time of disposition: Fair - Referrals - Patient Instructions - Post Discharge Activity Procedures - Intubation Intubation Method: orotracheal Blade used: Mac Tube Size (Fr): 7.5 Medications: Etomidate, Succinylcholine Tube position @ lip (cm): 23 Tube position confirmed by: Direct visualization, CO2 detector, Chest x-ray, Breath sounds Breath Sounds after Intubation: equal Intubation Complications: no complications Post Intubation Xray: Yes Progress/Xray Impression: Tube deep at 25cm, backed to 23cm.
--- NOTE | 2018-12-01 00:36 | CONSULT ---
Consultation: REQUESTING PROVIDER: Dr. Birmingham CONSULT REQUEST: We have been asked to medically evaluate this patient for hypoxic, hypercapnic respiratory failure. HISTORY OF PRESENT ILLNESS: Patient is a 48 year old male with history of alcohol dependence (2 pints Vodka daily), heroin dependence (20 grams/ day) with numerous prior detox visits, withdrawal seizures, depression, insulin dependent diabetes mellitus, asthma, hypertension presents from [facility] after fall (unwitnessed). Per HRIS COORDINATOR note, patient noted to be tachycardic, and saturating in the 40s with agonal breaths. Patient was given Naran x2, after which patient vomited and subsequently became more responsive. Of note, patient was recently seen at [facility] ED for syncopal episode with fall onto concrete floor (head CT at that time negative for acute intracranial pathology). In addition, patient was also seen for complaint of chest pain prior to this admission to [facility]; Chest radiograph negative for acute infiltrates, EKG revealed normal sinus rhythm without ischemic changes, and Troponin 0.02. ABG upon admission revealed respiratory acidosis, hypoxia. Patient was placed on bilevel ventilation without significant improvement of hypercapnic respiratory acidosis. Given his reported worsened mental status, and inability to cooperate with BiLevel, patient was intubated in ED. REVIEW OF SYSTEMS: As per HPI, unable to obtain further as patient intubated, sedated. PHYSICAL EXAMINATION Vital Signs - 24 hr 11/30/18 11/30/18 11/30/18 18:10 18:37 20:35 Temperature 96.4 F L Pulse Rate 50 L Pulse Rate [ 94 H Apical] Respiratory 16 19 Rate Blood Pressure 90/56 L Blood Pressure 133/70 [Right Arm] O2 Sat by Pulse 100 89 L Oximetry (%) 11/30/18 11/30/18 11/30/18 20:38 21:41 22:05 Temperature 98.3 F Pulse Rate Pulse Rate [ Apical] Respiratory Rate Blood Pressure Blood Pressure [Right Arm] O2 Sat by Pulse 94 L 100 Oximetry (%) 11/30/18 22:57 Temperature Pulse Rate Pulse Rate [ 85 Apical] Respiratory Rate Blood Pressure Blood Pressure 115/77 [Right Arm] O2 Sat by Pulse 100 Oximetry (%) GENERAL: Intubated, sedated. HEAD: Normocephalic, atraumatic. EYES: PERRL, sclera anicteric, conjunctiva clear. EARS, NOSE, THROAT: Oropharynx clear without exudates. Moist mucous membranes. NECK: Supple without lymphadenopathy, or JVD LUNGS: Mechanical breath sounds equal, with diffuse wheezing bilaterally. HEART: Regular rate and rhythm, normal S1 and S2 without murmur, rub or gallop. ABDOMEN: Soft, nontender, not distended, normoactive bowel sounds, no guarding, no rebound, no masses. No hepatomegaly or splenomegaly. EXTREMITIES: 2+ radial, dorsalis pedis pulses bilaterally, warm, well-perfused. NEUROLOGICAL: Unable to assess further due to patient clinical status; patient is sedated. SKIN: Warm, dry. Laboratory Results - last 24 hr 11/30/18 11/30/18 11/30/18 18:54 18:59 19:30 WBC 12.0 H RBC 5.08 Hgb 15.6 Hct 46.7 MCV 91.9 MCH 30.7 MCHC 33.4 RDW 13.1 Plt Count 208 MPV 8.8 Absolute Neuts (auto) 10.3 H Neutrophils % 85.6 H D Lymphocytes % 7.8 L D Monocytes % 5.5 Eosinophils % 0.5 D Basophils % 0.6 Nucleated RBC % 0 Anticoagulation Therapy Puncture Site ABG pH ABG pCO2 at Pt Temp ABG pO2 at Pt Temp ABG HCO3 ABG O2 Sat (Measured) ABG O2 Content ABG Base Excess Og Test Carboxyhemoglobin Methemoglobin O2 Delivery Device Oxygen Flow Rate Vent Mode Vent Rate Mechanical Rate Pressure Support Vent Sodium 142 Potassium 4.2 Chloride 105 Carbon Dioxide 31 Anion Gap 6 L BUN 16.1 Creatinine 0.9 Est GFR (CKD-EPI)AfAm 115.83 Est GFR (CKD-EPI)NonAf 99.94 Random Glucose 125 H Lactic Acid 2.9 H* Calcium 8.7 Total Bilirubin 0.1 L AST 14 L ALT 19 Alkaline Phosphatase 91 Troponin I 0.04 Total Protein 6.7 Albumin 3.6 Urine Color Urine Appearance Urine pH Ur Specific [place] Urine Protein Urine Glucose (UA) Urine Ketones Urine Blood Urine Nitrite Urine Bilirubin Urine Urobilinogen Ur Leukocyte Esterase Opiates Screen Methadone Screen Barbiturate Screen Phencyclidine Screen Ur Amphetamines Screen MDMA (Ecstasy) Screen Benzodiazepines Screen Cocaine Screen U Marijuana (THC) Screen 11/30/18 11/30/18 11/30/18 20:15 20:34 21:35 WBC RBC Hgb Hct MCV MCH MCHC RDW Plt Count MPV Absolute Neuts (auto) Neutrophils % Lymphocytes % Monocytes % Eosinophils % Basophils % Nucleated RBC % Anticoagulation Therapy No Result Required. Puncture Site Right brachial ABG pH 7.33 L ABG pCO2 at Pt Temp 52.7 H ABG pO2 at Pt Temp 54.6 L ABG HCO3 27.0 ABG O2 Sat (Measured) 85.7 L ABG O2 Content 18.7 ABG Base Excess 0.4 Og Test Positive Carboxyhemoglobin 0.8 Methemoglobin 0.5 O2 Delivery Device No Result Required. Oxygen Flow Rate 4l Vent Mode No Result Required. Vent Rate No Result Required. Mechanical Rate No Result Required. Pressure Support Vent No Result Required. Sodium Potassium Chloride Carbon Dioxide Anion Gap BUN Creatinine Est GFR (CKD-EPI)AfAm Est GFR (CKD-EPI)NonAf Random Glucose Lactic Acid Calcium Total Bilirubin AST ALT Alkaline Phosphatase Troponin I Total Protein Albumin Urine Color Urine Appearance Urine pH Ur Specific [place] Urine Protein Urine Glucose (UA) Urine Ketones Urine Blood Urine Nitrite Urine Bilirubin Urine Urobilinogen Ur Leukocyte Esterase Opiates Screen Negative Methadone Screen Positive A* Barbiturate Screen Negative Phencyclidine Screen Negative Ur Amphetamines Screen Negative MDMA (Ecstasy) Screen Negative Benzodiazepines Screen Positive A* Cocaine Screen Positive A* U Marijuana (THC) Screen Negative 11/30/18 21:35 WBC RBC Hgb Hct MCV MCH MCHC RDW Plt Count MPV Absolute Neuts (auto) Neutrophils % Lymphocytes % Monocytes % Eosinophils % Basophils % Nucleated RBC % Anticoagulation Therapy Puncture Site ABG pH ABG pCO2 at Pt Temp ABG pO2 at Pt Temp ABG HCO3 ABG O2 Sat (Measured) ABG O2 Content ABG Base Excess Og Test Carboxyhemoglobin Methemoglobin O2 Delivery Device Oxygen Flow Rate Vent Mode Vent Rate Mechanical Rate Pressure Support Vent Sodium Potassium Chloride Carbon Dioxide Anion Gap BUN Creatinine Est GFR (CKD-EPI)AfAm Est GFR (CKD-EPI)NonAf Random Glucose Lactic Acid Calcium Total Bilirubin AST ALT Alkaline Phosphatase Troponin I Total Protein Albumin Urine Color Yellow Urine Appearance Clear Urine pH 6.0 Ur Specific [place] 1.022 Urine Protein Negative Urine Glucose (UA) Trace Urine Ketones Negative Urine Blood Negative Urine Nitrite Negative Urine Bilirubin Negative Urine Urobilinogen 0.2 Ur Leukocyte Esterase Negative Opiates Screen Methadone Screen Barbiturate Screen Phencyclidine Screen Ur Amphetamines Screen MDMA (Ecstasy) Screen Benzodiazepines Screen Cocaine Screen U Marijuana (THC) Screen Active Medications Generic Name Dose Route Start Last Admin Trade Name Freq PRN Reason Stop Dose Admin Albuterol/Ipratropium 1 amp 12/01/18 08:00 Duoneb - NEB RQID MARAL Methylprednisolone Sodium Succinate 60 mg 11/30/18 23:30 Solu-Medrol - IVPB Q6H [facility]PLAN: Acute hypoxic, hypercapnic respiratory failure Sepsis secondary to right lower lobe pneumonia Heroin dependence Alcohol dependence Diabetes mellitus S/P unwitnessed fall Suspected seizure activity Neurologic -Patient sedated with Propofol -Monitor for signs of withdrawal from Opiates, Alcohol. -Will need to confirm Methadone dose, to reinstate. -Depacote 500mg IV BID -CT head STAT Pulmonary -Patient initially trialed on BiLevel ventilation, however given his mental status, was intubated in ED. -Vent settings A/C mode, FiO2 50%, RR 14, tidal volume 450, PEEP 5 -ABG reveals improvement of hypercarbia s/p intubation. Repeat morning ABG -Chest radiograph reveals right lower lobe infiltrate -F/U CT chest -Solu-medrol 60mg IV Q8 hours Cardiac -Troponin 0.04 -> 0.03 -ECG reveals normal sinus rhythm at 95BPM, without ischemic changes. -Cardiac monitoring while in ICU Gastrointestinal -NPO while intubated -Protonix 40mg IV push daily for prophylaxis Infectious disease -Right lower lobe pneumonia -Vancomycin 1 gram IV -Levofloxacin 750mg IV -Lactic acid 2.9 -> 3.2. Will trend. -IV fluid hydration; target 30mL/ kg. First liter bolus given in ICU, will continue fluid resuscitation to goal (IV normal saline with Thiamine, Folic acid ). -ID consult (Dr. Galvez) Endocrine -Insulin sliding scale ACHS -Fingerstick blood glucose monitoring. FEN -Fluids: Bolus IV normal saline with Thiamine, Folic acid -Electrolytes: Follow CMP, replete as necesary -Nutriton: NPO while intubated Prophylaxis -Heparin 500u subq TID Disposition: We will continue to follow the patient. Thank you for this consultative opportunity. Visit type - Emergency Visit Emergency Visit: Yes ED Registration Date: 11/30/18 Care time: The patient presented to the Emergency Department on the above date and was hospitalized for further evaluation of their emergent condition. - New Patient This patient is new to me today: Yes Date on this admission: 12/01/18 - Critical Care Critical Care patient: Yes Total Critical Care Time (in minutes): 35 Critical Care Statement: The care of this patient involved high complexity decision making to prevent further life threatening deterioration of the patient 's condition and/or to evaluate & treat vital organ system(s) failure or risk of failure. ATTENDING PHYSICIAN STATEMENT I saw and evaluated the patient. I reviewed the resident's note and discussed the case with the resident. I agree with the resident's findings and plan as documented. SUBJECTIVE: OBJECTIVE: ASSESSMENT AND PLAN:
[2018-12-01] MEDS ORDERED: PROPOFOL 200 MG/20 ML VIAL IVPUSH ONE (00:44)
[2018-12-01] MEDS ORDERED: SUCCINYLCHOLINE CHLORIDE 200 MG/10 ML VIAL IVPUSH ONE (00:44)
[2018-12-01] MEDS ORDERED: ETOMIDATE 40 MG/20 ML VIAL IVPUSH ONE (00:44)
[2018-12-01] MEDS: PROPOFOL 1,000,000 MCG/100 ML VIAL IVPB SCH (00:55)
[2018-12-01] MEDS ORDERED: HEPARIN NA (PORCINE) 5,000 UNITS/ML 1ML VIAL ONE (02:03)
[2018-12-01] MEDS: HEPARIN NA (PORCINE) 5,000 UNITS/ML 1ML VIAL SQ SCH ×3 (02:03→17:51)
[2018-12-01] MEDS ORDERED: FOLIC ACID INJECTION - 1 MG, THIAMINE HCL 100 MG, MULTIVIT INJECTION ADULT 10 ML in SOD... IVPB ONE (02:45)
[2018-12-01 03:38] LABS: ARTERIAL BLOOD GAS BASE EXCESS -0.7 meq/l (-2-2); ARTERIAL BLOOD GAS PCO2 49.3 mmHg (35-45); ARTERIAL BLOOD GAS PO2 73.9 mmHg (80-105); ARTERIAL BLOOD GAS pH 7.33 (7.35-7.45)
[2018-12-01 03:42] LABS: ALLENS TEST POSITIVE
[2018-12-01] MEDS: methylPREDNISolone NA SUCC 40 MG/1 ML VIAL IVPB SCH ×4 (05:25→23:38)
[2018-12-01 05:27] LABS: HEMATOCRIT 43.6 % (35.4-49); HEMOGLOBIN 14.9 GM/dL (11.7-16.9); MCH 30.9 pg (25.7-33.7); MCHC 34.2 g/dl (32.0-35.9); MEAN CELL VOLUME 90.5 fl (80-96); PLATELET COUNT 213 K/MM3 (134-434); RBC 4.82 M/mm3 (4.00-5.60); RDW 12.7 % (11.9-15.9); WHITE BLOOD COUNT 12.4 K/mm3 (4.0-10.0)
[2018-12-01 05:47] LABS: ALBUMIN 3.2 g/dl (3.4-5.0); BILIRUBIN,TOTAL 0.4 mg/dL (0.2-1); BLOOD UREA NITROGEN 12.1 mg/dL (7-18); CALCIUM 8.4 mg/dL (8.5-10.1); CREATININE 0.9 mg/dL (0.55-1.3); MAGNESIUM 2.3 mg/dL (1.8-2.4); PHOSPHOROUS 1.8 mg/dL (2.5-4.9); POTASSIUM 4.2 mmol/L (3.5-5.1); TOT PROT 6.1 g/dl (6.4-8.2)
[2018-12-01] MEDS: INSULIN SLIDING SCALE (NOVOLOG) 1 VIAL SQ SCH ×3 (06:45→17:41)
[2018-12-01 06:46] LABS: BASO % 0.2 % (0-2.0); HEMATOCRIT 44.7 % (35.4-49); HEMOGLOBIN 15.3 GM/dL (11.7-16.9); LYMPH % 4.4 % (8-40); MCHC 34.3 g/dl (32.0-35.9); MEAN CELL VOLUME 90.4 fl (80-96); MONO % 2.6 % (3.8-10.2); NEUT % 92.8 % (42.8-82.8); PLATELET COUNT 214 K/MM3 (134-434); RBC 4.95 M/mm3 (4.00-5.60); RDW 12.9 % (11.9-15.9); WHITE BLOOD COUNT 12.6 K/mm3 (4.0-10.0)
[2018-12-01] MEDS ORDERED: INSULIN SLIDING SCALE (NOVOLOG) 1 VIAL SQ SCH (07:00)
--- NOTE | 2018-12-01 07:01 | PN ---
Physical Exam: SUBJECTIVE: Patient here after being found on floor at [facility]. In the field, 2 narcans were administered with reported positive improvement. In ED, it was noted that at first he was protecting his airway but was lethargic appearing. An ABG at the time showed respiratory acidosis with pH 7.33 and pCO2 52. He continued to remain lethargic and he was intubated for airway protection. CXR showed bilateral infiltrates. Patient had an elevated lactate that continued to rise overnight. Patient seen and examined at bedside. he is intubated and sedated on propofol. Wean trial attempted. Patient wakes up and follows commands but is agitated. He is on minimal vent settings (FiO2 35%, 400TV, PEEP 5, RR 14) and saturating 100% . Per EMR, patient was seen in the ED on 11/28 for substernal chest pain and found to have a fever of 102.7 and tachycardia. CXR at the time was negative for infiltrate. Patient was seen the following day again s/p fall and at the time had been complaining of shortness of breath, chest tightness and cough productive of yellow sputum for several weeks. CXR then showed developing b/l infiltrate. Patient was sent back to [facility]. OBJECTIVE: Vital Signs Period Temp Pulse Resp BP Sys/[place] Pulse Ox Last 24 Hr 96.4 F-98.8 F 50-94 14-21 90-133/56-85 89-100 GENERAL: A&Ox0, intubated/sedated EYES: PERRLA ENT: Moist mucus membranes, moderate amount of yellow sputum noted in ET tube with blood streaks NECK: No JVD LUNGS: Mechanical breath sounds, R lung rhoncorous compared to L HEART: RRR, no murmurs ABDOMEN: Soft, nontender, BS present EXTREMITIES: 2+ pulses, no edema. NEUROLOGICAL: Unable to assess due to mental status Laboratory Results - last 24 hr 11/30/18 11/30/18 11/30/18 00:00 18:54 18:59 WBC 12.0 H RBC 5.08 Hgb 15.6 Hct 46.7 MCV 91.9 MCH 30.7 MCHC 33.4 RDW 13.1 Plt Count 208 MPV 8.8 Absolute Neuts (auto) 10.3 H Neutrophils % 85.6 H D Lymphocytes % 7.8 L D Monocytes % 5.5 Eosinophils % 0.5 D Basophils % 0.6 Nucleated RBC % 0 Anticoagulation Therapy Puncture Site ABG pH ABG pCO2 at Pt Temp ABG pO2 at Pt Temp ABG HCO3 ABG O2 Sat (Measured) ABG O2 Content ABG Base Excess Og Test Carboxyhemoglobin Methemoglobin O2 Delivery Device Oxygen Flow Rate Vent Mode Vent Rate Mechanical Rate PEEP Pressure Support Vent Sodium 142 Potassium 4.2 Chloride 105 Carbon Dioxide 31 Anion Gap 6 L BUN 16.1 Creatinine 0.9 Est GFR (CKD-EPI)AfAm 115.83 Est GFR (CKD-EPI)NonAf 99.94 POC Glucometer Random Glucose 125 H Lactic Acid 2.3 H* Calcium 8.7 Phosphorus Magnesium Total Bilirubin 0.1 L AST 14 L ALT 19 Alkaline Phosphatase 91 Troponin I 0.04 Total Protein 6.7 Albumin 3.6 Urine Color Urine Appearance Urine pH Ur Specific [place] Urine Protein Urine Glucose (UA) Urine Ketones Urine Blood Urine Nitrite Urine Bilirubin Urine Urobilinogen Ur Leukocyte Esterase Opiates Screen Methadone Screen Barbiturate Screen Phencyclidine Screen Ur Amphetamines Screen MDMA (Ecstasy) Screen Benzodiazepines Screen Cocaine Screen U Marijuana (THC) Screen 11/30/18 11/30/18 11/30/18 19:30 20:15 20:34 WBC RBC Hgb Hct MCV MCH MCHC RDW Plt Count MPV Absolute Neuts (auto) Neutrophils % Lymphocytes % Monocytes % Eosinophils % Basophils % Nucleated RBC % Anticoagulation Therapy No Result Required. Puncture Site Right brachial ABG pH 7.33 L ABG pCO2 at Pt Temp 52.7 H ABG pO2 at Pt Temp 54.6 L ABG HCO3 27.0 ABG O2 Sat (Measured) 85.7 L ABG O2 Content 18.7 ABG Base Excess 0.4 Og Test Positive Carboxyhemoglobin 0.8 Methemoglobin 0.5 O2 Delivery Device No Result Required. Oxygen Flow Rate 4l Vent Mode No Result Required. Vent Rate No Result Required. Mechanical Rate No Result Required. PEEP Pressure Support Vent No Result Required. Sodium Potassium Chloride Carbon Dioxide Anion Gap BUN Creatinine Est GFR (CKD-EPI)AfAm Est GFR (CKD-EPI)NonAf POC Glucometer Random Glucose Lactic Acid 2.9 H* Calcium Phosphorus Magnesium Total Bilirubin AST ALT Alkaline Phosphatase Troponin I Total Protein Albumin Urine Color Urine Appearance Urine pH Ur Specific [place] Urine Protein Urine Glucose (UA) Urine Ketones Urine Blood Urine Nitrite Urine Bilirubin Urine Urobilinogen Ur Leukocyte Esterase Opiates Screen Methadone Screen Barbiturate Screen Phencyclidine Screen Ur Amphetamines Screen MDMA (Ecstasy) Screen Benzodiazepines Screen Cocaine Screen U Marijuana (THC) Screen 11/30/18 11/30/18 12/01/18 21:35 21:35 03:30 WBC RBC Hgb Hct MCV MCH MCHC RDW Plt Count MPV Absolute Neuts (auto) Neutrophils % Lymphocytes % Monocytes % Eosinophils % Basophils % Nucleated RBC % Anticoagulation Therapy No Result Required. Puncture Site Right brachial ABG pH 7.33 L ABG pCO2 at Pt Temp 49.3 H ABG pO2 at Pt Temp 73.9 L ABG HCO3 25.4 ABG O2 Sat (Measured) 94.0 L ABG O2 Content 19.9 ABG Base Excess -0.7 Og Test Positive Carboxyhemoglobin Methemoglobin O2 Delivery Device Vent Oxygen Flow Rate 50% Vent Mode A/c Vent Rate 14 Mechanical Rate Yes PEEP 5.0 Pressure Support Vent 450 Sodium Potassium Chloride Carbon Dioxide Anion Gap BUN Creatinine Est GFR (CKD-EPI)AfAm Est GFR (CKD-EPI)NonAf POC Glucometer Random Glucose Lactic Acid Calcium Phosphorus Magnesium Total Bilirubin AST ALT Alkaline Phosphatase Troponin I Total Protein Albumin Urine Color Yellow Urine Appearance Clear Urine pH 6.0 Ur Specific [place] 1.022 Urine Protein Negative Urine Glucose (UA) Trace Urine Ketones Negative Urine Blood Negative Urine Nitrite Negative Urine Bilirubin Negative Urine Urobilinogen 0.2 Ur Leukocyte Esterase Negative Opiates Screen Negative Methadone Screen Positive A* Barbiturate Screen Negative Phencyclidine Screen Negative Ur Amphetamines Screen Negative MDMA (Ecstasy) Screen Negative Benzodiazepines Screen Positive A* Cocaine Screen Positive A* U Marijuana (THC) Screen Negative 12/01/18 12/01/18 12/01/18 04:15 04:15 04:15 WBC 12.4 H RBC 4.82 Hgb 14.9 Hct 43.6 MCV 90.5 MCH 30.9 MCHC 34.2 RDW 12.7 Plt Count 213 MPV 9.0 Absolute Neuts (auto) Neutrophils % Lymphocytes % Monocytes % Eosinophils % Basophils % Nucleated RBC % Anticoagulation Therapy Puncture Site ABG pH ABG pCO2 at Pt Temp ABG pO2 at Pt Temp ABG HCO3 ABG O2 Sat (Measured) ABG O2 Content ABG Base Excess Og Test Carboxyhemoglobin Methemoglobin O2 Delivery Device Oxygen Flow Rate Vent Mode Vent Rate Mechanical Rate PEEP Pressure Support Vent Sodium 142 Potassium 4.2 Chloride 107 Carbon Dioxide 27 Anion Gap 9 BUN 12.1 Creatinine 0.9 Est GFR (CKD-EPI)AfAm 115.83 Est GFR (CKD-EPI)NonAf 99.94 POC Glucometer Random Glucose 118 H Lactic Acid 3.2 H* Calcium 8.4 L Phosphorus 1.8 L Magnesium 2.3 Total Bilirubin 0.4 AST 25 ALT 22 Alkaline Phosphatase 73 Troponin I 0.03 Total Protein 6.1 L Albumin 3.2 L Urine Color Urine Appearance Urine pH Ur Specific [place] Urine Protein Urine Glucose (UA) Urine Ketones Urine Blood Urine Nitrite Urine Bilirubin Urine Urobilinogen Ur Leukocyte Esterase Opiates Screen Methadone Screen Barbiturate Screen Phencyclidine Screen Ur Amphetamines Screen MDMA (Ecstasy) Screen Benzodiazepines Screen Cocaine Screen U Marijuana (THC) Screen 12/01/18 06:42 WBC RBC Hgb Hct MCV MCH MCHC RDW Plt Count MPV Absolute Neuts (auto) Neutrophils % Lymphocytes % Monocytes % Eosinophils % Basophils % Nucleated RBC % Anticoagulation Therapy Puncture Site ABG pH ABG pCO2 at Pt Temp ABG pO2 at Pt Temp ABG HCO3 ABG O2 Sat (Measured) ABG O2 Content ABG Base Excess Og Test Carboxyhemoglobin Methemoglobin O2 Delivery Device Oxygen Flow Rate Vent Mode Vent Rate Mechanical Rate PEEP Pressure Support Vent Sodium Potassium Chloride Carbon Dioxide Anion Gap BUN Creatinine Est GFR (CKD-EPI)AfAm Est GFR (CKD-EPI)NonAf POC Glucometer 167 Random Glucose Lactic Acid Calcium Phosphorus Magnesium Total Bilirubin AST ALT Alkaline Phosphatase Troponin I Total Protein Albumin Urine Color Urine Appearance Urine pH Ur Specific [place] Urine Protein Urine Glucose (UA) Urine Ketones Urine Blood Urine Nitrite Urine Bilirubin Urine Urobilinogen Ur Leukocyte Esterase Opiates Screen Methadone Screen Barbiturate Screen Phencyclidine Screen Ur Amphetamines Screen MDMA (Ecstasy) Screen Benzodiazepines Screen Cocaine Screen U Marijuana (THC) Screen Active Medications Generic Name Dose Route Start Last Admin Trade Name Freq PRN Reason Stop Dose Admin Albuterol/Ipratropium 1 amp 12/01/18 08:00 Duoneb - NEB RQID MARAL Chlorhexidine Gluconate 1 applic 12/01/18 22:00 Hibiclens For Decolonization - TP HS MARAL Heparin Sodium (Porcine) 5,000 unit 12/01/18 02:00 12/01/18 02:03 Heparin - SQ 5,000 unit Q8H-IV MARAL Administration Propofol 1,000,000 mcg in 100 mls @ 9.798 mls/hr 12/01/18 00:45 12/01/18 05: 25 Diprivan - IVPB 25 mcg/kg/min TITR MARAL 12.247 mls/hr Titration Protocol 20 MCG/KG/MIN Folic Acid 1 mg/ Thiamine HCl 1,000 mls @ 125 mls/hr 12/01/18 02:45 12/01/18 05:22 100 mg/ Multivitamins/Minerals IVPB 12/01/18 10:44 125 mls/hr 10 ml/ Sodium Chloride ONCE ONE Administration Insulin Aspart 1 vial 12/01/18 07:00 12/01/18 06:45 Novolog Vial Sliding Scale - SQ 2 units TIDAC MARAL Administration Protocol Methylprednisolone Sodium Succinate 60 mg 11/30/18 23:30 12/01/18 05:25 Solu-Medrol - IVPB 60 mg Q6H MARAL Administration Mupirocin 1 applic 12/01/18 10:00 Bactroban Ointment (For Decolonization) - NS 12/06/18 09:59 BID MARAL Valproate Sodium 500 mg 12/01/18 10:00 Depacon Injection - IVPB BID [facility] Current Medications Albuterol/Ipratropium (Duoneb -) 1 amp NEB RQID MARAL Last Admin: 12/01/18 08:06 Dose: 1 amp Chlorhexidine Gluconate (Hibiclens For Decolonization -) 1 applic TP HS MARAL Heparin Sodium (Porcine) (Heparin -) 5,000 unit SQ Q8H-IV MARAL Last Admin: 12/01/18 02:03 Dose: 5,000 unit Propofol (Diprivan -) 1,000,000 mcg in 100 mls @ 9.798 mls/hr IVPB TITR MARAL; Protocol Last Titration: 12/01/18 05:25 Dose: 25 mcg/kg/min, 12.247 mls/hr Levofloxacin (Levaquin 500 Mg Premixed Ivpb -) 500 mg in 100 mls @ 100 mls/hr IVPB DAILY MARAL; Protocol Lactated Ringer's (Lactated Ringers Solution) 1,000 ml in 1,000 mls @ 100 mls/ hr IV ASDIR MARAL Stop: 12/02/18 17:59 Clindamycin Phosphate (Cleocin 600 Mg Premix Ivpb -) 600 mg in 50 mls @ 100 mls /hr IVPB Q8H-IV MARAL; Protocol Insulin Aspart (Novolog Vial Sliding Scale -) 1 vial SQ TIDAC [facility]; Protocol Last Admin: 12/01/18 06:45 Dose: 2 units Methylprednisolone Sodium Succinate (Solu-Medrol -) 60 mg IVPB Q6H [facility] Last Admin: 12/01/18 05:25 Dose: 60 mg Mupirocin (Bactroban Ointment (For Decolonization) -) 1 applic NS BID [facility] Stop: 12/06/18 09:59 Valproate Sodium (Depacon Injection -) 500 mg IVPB BID [facility] ASSESSMENT/PLAN: 48 year old male with hx alcohol abuse (2 pints daily), heroin abuse, hx withdrawal seizures, insulin dependent diabetes, asthma, hypertension came to the emergency department after being found unresponsive, found to have bilateral pneumonia #Loss of Consciousness #Sepsis 2/2 Bilateral Pneumonia #Hypoxic Hypercapnic Respiratory Failure #Alcohol Abuse #Heroin Abuse #Insulin Dependent Diabetes Mellitus #Asthma #Hypertension Neurological -Loss of consciousness: unclear if patient had seizure-like episode especially since he has a history of alcohol withdrawal seizures; -currently sedated on propofol -will need to obtain head CT this AM -continue banana bag, folic acid/thiamine -will need detox protocol, recommend detox consultation -continue valproic acid -need to confirm methadone dose Cardiovascular -patient has history of hypertension, normotensive at present -monitor patient on telemetry -EKG NSR with normal QTc -will assess volume status with ultrasounds IVC ultrasound Pulmonary -patient is intubated with vent settings TV 400, RR 14, PEEP 5, FiO2 35%, PSV 5 -saturating 100% on these settings -ABG showed mild improvement, however patient is still at present acidotic with pH 7.33 -CXR reveals worsening of bilateral infiltrates suggestive of multilobar pneumonia -continue treating per sepsis protocol -antibiotics levaquin and clindamycin -patient scheduled for head and chest CT -continue solumedrol 60q6h Gastrointestinal -no acute abnormalities Renal -no acute Infectious Diseases -levaquin/clinda -follow cultures blood/urine/sputum -urine legionella/pneumococcus antigens -trend lactate FEN -lactated ringers @ 100cc/hr 2 bags, will re-evaluate fluid status -follow lytes -NPO Prophylaxis -on lovenox Disposition -continue monitoring in ICU, anticipate downgrade in 48 hours Visit type - Emergency Visit Emergency Visit: No - New Patient This patient is new to me today: Yes Date on this admission: 12/01/18 - Critical Care Critical Care patient: Yes Total Critical Care Time (in minutes): 45 Critical Care Statement: The care of this patient involved high complexity decision making to prevent further life threatening deterioration of the patient 's condition and/or to evaluate & treat vital organ system(s) failure or risk of failure. ATTENDING PHYSICIAN STATEMENT I saw and evaluated the patient. I reviewed the resident's note and discussed the case with the resident. I agree with the resident's findings and plan as documented. SUBJECTIVE: OBJECTIVE: ASSESSMENT AND PLAN:
[2018-12-01 07:03] LABS: ALLENS TEST POSITIVE
[2018-12-01 07:07] LABS: ARTERIAL BLD GAS O2 SATURATION 97.8 % (95-98); ARTERIAL BLOOD GAS BASE EXCESS -0.8 meq/l (-2-2); ARTERIAL BLOOD GAS PCO2 49.5 mmHg (35-45); ARTERIAL BLOOD GAS PO2 106 mmHg (80-105); ARTERIAL BLOOD GAS pH 7.33 (7.35-7.45)
[2018-12-01 07:12] LABS: ALBUMIN 3.3 g/dl (3.4-5.0); BILIRUBIN,TOTAL 0.4 mg/dL (0.2-1); BLOOD UREA NITROGEN 12.2 mg/dL (7-18); CALCIUM 8.6 mg/dL (8.5-10.1); CREATININE 0.9 mg/dL (0.55-1.3); POTASSIUM 4.2 mmol/L (3.5-5.1); TOT PROT 6.1 g/dl (6.4-8.2)
[2018-12-01] MEDS: ALBUTEROL SO4 2.5/IPRATROPIUM 0.5 INH SOL 3 ML VIAL.NEB. NEB SCH ×4 (08:06→21:33)
--- NOTE | 2018-12-01 09:12 | PN ---
Progress Note (short form) - Note Progress Note: ID consult dictated imp/reccd 48 yo man with history of polysubstance use etoh, heroine, crack cocaine, cigarettes, and diabetes, admitted from detox with unresponsiveness and hypoxia- he was seen admitted to detox on 11/28 and seen in ED twice +chest tightness +bilateral pulmonary infiltrates intubated in ED, given vancomycin, cefepime and levaquin +vomiting HIV negative no fevers blood cultures from 11/[address] from 11/30 is negative pen allergy noted as swelling- currently intubated s/p unwitnessed fall at detox respiratory failure-hypoxemic bilateral pneumonia- CAP vs aspiration polysubstance use seizure disorder diabetes penicillin allergy cultures- blood, sputum urinary antigens for legionella and pneumcoccus clindamycin and levaquin head ct pending d/w ICU resident over 40 minutes was spent in the care of this critically ill icu patient Problem List - Problems (1) Acute respiratory failure with hypoxemia Code(s): J96.01 - ACUTE RESPIRATORY FAILURE WITH HYPOXIA (2) Pneumonia Code(s): J18.9 - PNEUMONIA, UNSPECIFIED ORGANISM (3) Polysubstance abuse Code(s): F19.10 - OTHER PSYCHOACTIVE SUBSTANCE ABUSE, UNCOMPLICATED (4) Seizure Code(s): R56.9 - UNSPECIFIED CONVULSIONS (5) Diabetes mellitus Code(s): E11.9 - TYPE 2 DIABETES MELLITUS WITHOUT COMPLICATIONS Qualifiers: Diabetes mellitus type: type 2 Diabetes mellitus survey statistician insulin use: unspecified [facility] insulin use status Diabetes mellitus complication status : with unspecified complications (6) Penicillin allergy Code(s): Z88.0 - ALLERGY STATUS TO PENICILLIN
[2018-12-01] MEDS: CLINDAMYCIN 600MG PREMIX IVPB 600 MG/50 ML BAG IVPB SCH ×3 (10:00→17:51)
[2018-12-01] MEDS: MUPIROCIN 2% TOPICAL OINTMENT FOR DECOLONIZATION NS SCH ×3 (10:00→21:42)
[2018-12-01 10:04] LABS: ANISOCYTOSIS 0; HELMET CELLS 0; HOWELL-JOLLY BODIES 0; MACROCYTOSIS 0; OVALOCYTE 0; PLATELET ESTIMATE NORMAL; ROULEAU 0; SICKELED CELLS 0; TARGET CELLS 0; TEAR DROP CELLS 0; TOXIC GRANULATION 0
--- NOTE | 2018-12-01 10:51 | CONS ---
DATE OF CONSULTATION: 12/01/2018 REQUESTING PHYSICIAN: Hospitalist service. HISTORY OF PRESENT ILLNESS: This is a 48-year-old man, history is from the chart, who was originally admitted to Detox on the . Most of the history is from the detox admission when he was awake and alert. During that admission, he presented to Detox for assessment for detox. He was intoxicated and was actually at that time sent over to the ER on the for evaluation because he was claiming of chest discomfort. He had had 4 days of substernal chest pain. He was evaluated in the ER and he had some blood cultures drawn and he was sent over to Detox and he appeared well. He was admitted to Detox with a history of heroin use and alcohol use. He returned on the to the emergency room after he had an unwitnessed fall at , and he had a head CT that was read as normal, and he had evidence of the old fracture of his nasal bone and zygomatic arch. He was discharged back to Rehab on the , and he was evaluated in Detox yesterday evening, where he was found to be unresponsive. He was given Narcan. He then vomited. 911 was called, and he was transferred back to the ER. After arrival in the ER on the night of the , he was noted to have worsening shortness of breath and mild chest pain, and he was intubated in the ER. He was noted to be hypoxic. He was given vancomycin, cefepime, and Levaquin, and he was admitted to the ICU. Currently, he is sedated. He had an unwitnessed fall, but CT scan is pending as our CT scan machine was down. Per the attending physician admission, he has had intermittent chest tightness. He has no fevers or chills. He did have vomiting prior to his transfer. I am asked to see him now for pneumonia. PAST MEDICAL HISTORY: Notable for polysubstance use, heroin, alcohol, crack cocaine, and cigarettes. He does not appear to be an IV drug user. He has a history of depression, diabetes, asthma, COPD, hypertension. He is blind in his left eye and he has seizure disorder and he has cataract in his right eye. He has a history of schizophrenia and depression. He is homeless at this time and unemployed. FAMILY HISTORY: Is not obtainable as he is intubated. REVIEW OF SYSTEMS: As per HPI. PHYSICAL EXAMINATION General: He is currently intubated. He is on a ventilator. Vital signs: Temperature is 98.2, pulse of 84, blood pressure is 103/68, respiratory rate 15, he is saturating 96% on 35% FiO2. HEENT: He is normocephalic. His eyes are anicteric. He has no conjunctival hemorrhages. Lungs: Have diminished breath sounds at the bases. Heart: Regular rate and rhythm. Abdomen: Soft, nontender. Extremities: Without edema. He has no rash. He has no track coles on his arms. LABORATORY DATA: White count is 12.6, hemoglobin 15.3, platelets are 214. BUN is 12, creatinine is 0.9. Lactic acid is pending; it was 3.2. LFTs are normal. Urinalysis is negative. Urine toxicology screen is notable for methadone, benzodiazepine, and cocaine. HIV testing was done on the and was negative. Blood cultures were sent on the when he was seen in the ER as well as well as urine that were all negative, and repeats were sent last night. Chest x-ray reveals bilateral infiltrates right greater than left. SUMMARY: This is a 48-year-old man with acute hypoxemic respiratory failure, bilateral pneumonia, community-acquired versus aspiration as he was noted to have vomited and he has very poor dentition, polysubstance use (does not appear to be an intravenous drug user with blood cultures negative on the ), seizure disorder, diabetes in the setting of PENICILLIN allergy. Cultures have been sent. Would obtain urinary antigens. Would obtain a sputum culture. Apparently he is having copious sputum. He has currently received vancomycin, cefepime, and Levaquin. Continue Levaquin and add clindamycin for anaerobic coverage for possible aspiration. Head CT is pending. Chart was reviewed, and patient was discussed at length with the ICU . CHICO MORALES M.D. [id number]
[2018-12-01] MEDS: VALPROATE SODIUM 500 MG/5 ML VIAL IVPB SCH ×2 (11:00→21:42)
--- NOTE | 2018-12-01 11:06 | EKG ---
Test Reason : Blood Pressure : / mmHG Vent. Rate : 095 BPM Atrial Rate : 095 BPM P-R Int : 112 ms QRS Dur : 086 ms QT Int : 356 ms P-R-T Axes : 022 060 007 degrees QTc Int : 447 ms NORMAL SINUS RHYTHM WHEN COMPARED WITH ECG OF 29-NOV-2018 21:42, VENT. RATE HAS INCREASED BY 31 BPM T WAVE INVERSION NOW EVIDENT IN INFERIOR LEADS Confirmed by SHANITA OCONNELL MD ([id number]) on 12/01/2018 11:06:27 AM Referred By: Confirmed By:SHANITA OCONNELL MD
[2018-12-01] MEDS: LACTATED RINGERS SOLUTION 1,000 ML/1,000 ML INFUS.BAG IV SCH (11:36)
--- NOTE | 2018-12-01 12:15 | PN ---
Teaching Attending Note Name of Resident: Diego Ludwig ATTENDING PHYSICIAN STATEMENT I saw and evaluated the patient. I reviewed the resident's note and discussed the case with the resident. I agree with the resident's findings and plan as documented. SUBJECTIVE: Patient seen and examined in the ICU. Intubated, awake and agitated. AC Mode of vent. No pressors. Intake & Output 11/28/18 11/29/18 11/30/18 12/01/18 23:59 23:59 23:59 23:59 Intake Total 299.4 Balance 299.4 Weight 180 lb 151 lb 1.6 oz Last Vital Signs Temp Pulse Resp BP Pulse Ox 98.0 F 79 21 H 99/75 96 12/01/18 10:00 12/01/18 10:00 12/01/18 11:48 12/01/18 10:00 12/01/18 07:30 Active Medications Albuterol/Ipratropium (Duoneb -) 1 amp NEB RQID MARAL Last Admin: 12/01/18 11:45 Dose: 1 amp Chlorhexidine Gluconate (Hibiclens For Decolonization -) 1 applic TP HS MARAL Heparin Sodium (Porcine) (Heparin -) 5,000 unit SQ Q8H-IV MARAL Last Admin: 12/01/18 11:36 Dose: 5,000 unit Propofol (Diprivan -) 1,000,000 mcg in 100 mls @ 9.798 mls/hr IVPB TITR MARAL; Protocol Last Titration: 12/01/18 05:25 Dose: 25 mcg/kg/min, 12.247 mls/hr Levofloxacin (Levaquin 500 Mg Premixed Ivpb -) 500 mg in 100 mls @ 100 mls/hr IVPB DAILY MARAL; Protocol Lactated Ringer's (Lactated Ringers Solution) 1,000 ml in 1,000 mls @ 100 mls/ hr IV ASDIR MARAL Stop: 12/02/18 17:59 Last Admin: 12/01/18 11:36 Dose: 100 mls/hr Clindamycin Phosphate (Cleocin 600 Mg Premix Ivpb -) 600 mg in 50 mls @ 100 mls /hr IVPB Q8H-IV MARAL; Protocol Last Admin: 12/01/18 11:00 Dose: 100 mls/hr Insulin Aspart (Novolog Vial Sliding Scale -) 1 vial SQ TIDAC MARAL; Protocol Last Admin: 12/01/18 11:41 Dose: Not Given Methylprednisolone Sodium Succinate (Solu-Medrol -) 60 mg IVPB Q6H [facility] Last Admin: 12/01/18 11:36 Dose: 60 mg Mupirocin (Bactroban Ointment (For Decolonization) -) 1 applic NS BID [facility] Stop: 12/06/18 09:59 Last Admin: 12/01/18 11:00 Dose: 1 applic Valproate Sodium (Depacon Injection -) 500 mg IVPB BID [facility] Last Admin: 12/01/18 11:00 Dose: 500 mg GENERAL: Intubated, awake and agitated HEAD: Normocephalic, atraumatic. EYES: sclera anicteric, conjunctiva clear. EARS, NOSE, THROAT: Oropharynx clear without exudates. Moist mucous membranes. NECK: Supple without lymphadenopathy, or JVD LUNGS: Vented, scattered bilateral rhonchi, no wheezing HEART: Regular rate and rhythm, normal S1 and S2 without murmur, rub or gallop. ABDOMEN: Soft, nontender, not distended, normoactive bowel sounds, no guarding, no rebound, no masses. No hepatomegaly or splenomegaly. EXTREMITIES: 2+ radial, dorsalis pedis pulses bilaterally, warm, well-perfused. NEUROLOGICAL: sedated. SKIN: Warm, dry. Laboratory Results - last 24 hr 11/30/18 11/30/18 11/30/18 18:54 18:59 19:30 WBC 12.0 H RBC 5.08 Hgb 15.6 Hct 46.7 MCV 91.9 MCH 30.7 MCHC 33.4 RDW 13.1 Plt Count 208 MPV 8.8 Absolute Neuts (auto) 10.3 H Neutrophils % 85.6 H D Lymphocytes % 7.8 L D Monocytes % 5.5 Eosinophils % 0.5 D Basophils % 0.6 Nucleated RBC % 0 Anticoagulation Therapy Puncture Site ABG pH ABG pCO2 at Pt Temp ABG pO2 at Pt Temp ABG HCO3 ABG O2 Sat (Measured) ABG O2 Content ABG Base Excess Og Test Carboxyhemoglobin Methemoglobin O2 Delivery Device Oxygen Flow Rate Vent Mode Vent Rate Mechanical Rate Pressure Support Vent Sodium 142 Potassium 4.2 Chloride 105 Carbon Dioxide 31 Anion Gap 6 L BUN 16.1 Creatinine 0.9 Est GFR (CKD-EPI)AfAm 115.83 Est GFR (CKD-EPI)NonAf 99.94 Random Glucose 125 H Lactic Acid 2.9 H* Calcium 8.7 Total Bilirubin 0.1 L AST 14 L ALT 19 Alkaline Phosphatase 91 Troponin I 0.04 Total Protein 6.7 Albumin 3.6 Urine Color Urine Appearance Urine pH Ur Specific [place] Urine Protein Urine Glucose (UA) Urine Ketones Urine Blood Urine Nitrite Urine Bilirubin Urine Urobilinogen Ur Leukocyte Esterase Opiates Screen Methadone Screen Barbiturate Screen Phencyclidine Screen Ur Amphetamines Screen MDMA (Ecstasy) Screen Benzodiazepines Screen Cocaine Screen U Marijuana (THC) Screen 11/30/18 11/30/18 11/30/18 20:15 20:34 21:35 WBC RBC Hgb Hct MCV MCH MCHC RDW Plt Count MPV Absolute Neuts (auto) Neutrophils % Lymphocytes % Monocytes % Eosinophils % Basophils % Nucleated RBC % Anticoagulation Therapy No Result Required. Puncture Site Right brachial ABG pH 7.33 L ABG pCO2 at Pt Temp 52.7 H ABG pO2 at Pt Temp 54.6 L ABG HCO3 27.0 ABG O2 Sat (Measured) 85.7 L ABG O2 Content 18.7 ABG Base Excess 0.4 Og Test Positive Carboxyhemoglobin 0.8 Methemoglobin 0.5 O2 Delivery Device No Result Required. Oxygen Flow Rate 4l Vent Mode No Result Required. Vent Rate No Result Required. Mechanical Rate No Result Required. Pressure Support Vent No Result Required. Sodium Potassium Chloride Carbon Dioxide Anion Gap BUN Creatinine Est GFR (CKD-EPI)AfAm Est GFR (CKD-EPI)NonAf Random Glucose Lactic Acid Calcium Total Bilirubin AST ALT Alkaline Phosphatase Troponin I Total Protein Albumin Urine Color Urine Appearance Urine pH Ur Specific [place] Urine Protein Urine Glucose (UA) Urine Ketones Urine Blood Urine Nitrite Urine Bilirubin Urine Urobilinogen Ur Leukocyte Esterase Opiates Screen Negative Methadone Screen Positive A* Barbiturate Screen Negative Phencyclidine Screen Negative Ur Amphetamines Screen Negative MDMA (Ecstasy) Screen Negative Benzodiazepines Screen Positive A* Cocaine Screen Positive A* U Marijuana (THC) Screen Negative 11/30/18 21:35 WBC RBC Hgb Hct MCV MCH MCHC RDW Plt Count MPV Absolute Neuts (auto) Neutrophils % Lymphocytes % Monocytes % Eosinophils % Basophils % Nucleated RBC % Anticoagulation Therapy Puncture Site ABG pH ABG pCO2 at Pt Temp ABG pO2 at Pt Temp ABG HCO3 ABG O2 Sat (Measured) ABG O2 Content ABG Base Excess Og Test Carboxyhemoglobin Methemoglobin O2 Delivery Device Oxygen Flow Rate Vent Mode Vent Rate Mechanical Rate Pressure Support Vent Sodium Potassium Chloride Carbon Dioxide Anion Gap BUN Creatinine Est GFR (CKD-EPI)AfAm Est GFR (CKD-EPI)NonAf Random Glucose Lactic Acid Calcium Total Bilirubin AST ALT Alkaline Phosphatase Troponin I Total Protein Albumin Urine Color Yellow Urine Appearance Clear Urine pH 6.0 Ur Specific [place] 1.022 Urine Protein Negative Urine Glucose (UA) Trace Urine Ketones Negative Urine Blood Negative Urine Nitrite Negative Urine Bilirubin Negative Urine Urobilinogen 0.2 Ur Leukocyte Esterase Negative Opiates Screen Methadone Screen Barbiturate Screen Phencyclidine Screen Ur Amphetamines Screen MDMA (Ecstasy) Screen Benzodiazepines Screen Cocaine Screen U Marijuana (THC) Screen ASSESSMENT/PLAN: Acute hypoxic and hypercapnic respiratory failure R/O Sepsis secondary to Aspiration Pneumonitis Heroin dependence Alcohol dependence Diabetes mellitus S/P unwitnessed fall Suspected seizure activity Sedate with propofol AC Mode of vent with ARDS strategy: Follow Pplat IVC normal of US evaluation: Conservative IVF management Follow CXR VTE prophylaxis Wean medrol Monitor for withdrawal ABX coverage Requires ICU monitoring Dr Finney Critical care time spent in reviewing chart, evaluating patient and formulating plan - 36 minutes.
--- NOTE | 2018-12-01 14:34 | ECHO ---
Name: HARRISONLEA M Exam:Adult Echocardiogram Study Date: 12/01/2018 02:01 PM Age: 48 yrs Reason For Study: HEART DISEASE Height: 69 in Weight: 151 lb BSA: 1.8 m2 MMode/2D Measurements & Calculations IVSd: 1.2 cm Ao root diam: 2.3 cm LVIDd: 4.2 cm LA dimension: 2.8 cm LVIDs: 3.2 cm LVPWd: 1.0 cm EDV(Teich): 77.2 ml LVOT diam: 2.0 cm ESV(Teich): 39.7 ml LAV (MOD-bp): 37.2 ml Doppler Measurements & Calculations MV E max durga: 83.4 cm/sec Ao V2 max: 120.8 cm/sec MV A max durga: 93.1 cm/sec Ao max P.8 mmHg MV E/A: 0.90 MV dec time: 0.18 sec DENILSON(V,D): 2.1 cm2 LV V1 max P.7 mmHg MR max durga: 306.1 cm/sec LV V1 max: 82.0 cm/sec MR max P.5 mmHg TR max durga: 185.3 cm/sec PA V2 max: 101.8 cm/sec TR max P.7 mmHg PA max P.1 mmHg Med Peak E' Durga: 6.3 cm/sec PI Vmax: 142.5 cm/sec Med E/e': 13.2 Lat Peak E' Durga: 7.5 cm/sec Lat E/e': 11.1 Left Ventricle There is borderline concentric left ventricular hypertrophy. Ejection Fraction = 50-55%. Left ventric ular systolic function is normal. The transmitral spectral Doppler flow pattern is normal for age. Right Ventricle The right ventricle is normal in size and function. Mitral Valve The mitral valve is normal in structure and function. There is no mitral valve stenosis. There is mil d mitral regurgitation. Tricuspid Valve The tricuspid valve is normal in structure and function. There is mild tricuspid regurgitation. Aortic Valve The aortic valve opens well. Pulmonic Valve The pulmonic valve is not well seen, but is grossly normal. There is no pulmonic valvular stenosis. T race to mild pulmonic valvular regurgitation. Pericardium/Pleura Cannot exclude trivial pericardial effusion posterior to the right atrium. Interpretation Summary Ejection Fraction = 50-55%. There is borderline concentric left ventricular hypertrophy. The right ventricle is normal in size and function. There is mild mitral regurgitation. Cannot exclude trivial pericardial effusion posterior to the right atrium. MD Pelletier *Que 12/01/2018 02:34 PM
--- NOTE | 2018-12-01 18:13 | PN ---
Physical Exam: SUBJECTIVE: Patient seen and examined at bedside this AM. OBJECTIVE: Vital Signs Period Temp Pulse Resp BP Sys/[place] Pulse Ox Last 24 Hr 96.4 F-98.8 F 76-94 14-21 86-133/61-85 89-100 GENERAL: The patient has a RAAS of -5 on propofol. HEAD: Normal with no signs of trauma. NECK: supple. LUNGS: Breath sounds equal, clear to auscultation bilaterally, slight congestion but no wheezing.. HEART: Regular rate and rhythm, S1, S2 without murmur, rub or gallop. ABDOMEN: Soft, nontender, nondistended, hypoactive bowel sounds, no guarding, no rebound. EXTREMITIES: warm, well-perfused, no edema. NEUROLOGICAL: Cranial nerves II through XII grossly intact. Normal speech, gait not observed. PSYCH: Normal mood, normal affect. SKIN: Warm, dry, no rashes or lesions noted Laboratory Results - last 24 hr 11/30/18 11/30/18 11/30/18 00:00 18:54 18:59 WBC 12.0 H RBC 5.08 Hgb 15.6 Hct 46.7 MCV 91.9 MCH 30.7 MCHC 33.4 RDW 13.1 Plt Count 208 MPV 8.8 Absolute Neuts (auto) 10.3 H Neutrophils % 85.6 H D Neutrophils % (Manual) Band Neutrophils % Lymphocytes % 7.8 L D Lymphocytes % (Manual) Monocytes % 5.5 Monocytes % (Manual) Eosinophils % 0.5 D Eosinophils % (Manual) Basophils % 0.6 Basophils % (Manual) Myelocytes % (Man) Promyelocytes % (Man) Blast Cells % (Manual) Nucleated RBC % 0 Metamyelocytes Hypochromia Toxic Granulation Dohle Bodies Platelet Estimate Polychromasia Poikilocytosis Basophilic Stippling Anisocytosis Microcytosis Macrocytosis Spherocytes Sickle Cells Target Cells Tear Drop Cells Ovalocytes Stomatocytes Helmet Cells [place] Bodies Elmer Rings Hailey Cells Acanthocytes (Spur) Rouleaux Fragmented RBCs Schistocytes Anticoagulation Therapy Puncture Site ABG pH ABG pCO2 at Pt Temp ABG pO2 at Pt Temp ABG HCO3 ABG O2 Sat (Measured) ABG O2 Content ABG Base Excess Og Test Carboxyhemoglobin Methemoglobin O2 Delivery Device Oxygen Flow Rate Vent Mode Vent Rate Mechanical Rate PEEP Pressure Support Vent Sodium 142 Potassium 4.2 Chloride 105 Carbon Dioxide 31 Anion Gap 6 L BUN 16.1 Creatinine 0.9 Est GFR (CKD-EPI)AfAm 115.83 Est GFR (CKD-EPI)NonAf 99.94 POC Glucometer Random Glucose 125 H Lactic Acid 2.3 H* Calcium 8.7 Phosphorus Magnesium Total Bilirubin 0.1 L AST 14 L ALT 19 Alkaline Phosphatase 91 Troponin I 0.04 Total Protein 6.7 Albumin 3.6 Urine Color Urine Appearance Urine pH Ur Specific Elizabeth Urine Protein Urine Glucose (UA) Urine Ketones Urine Blood Urine Nitrite Urine Bilirubin Urine Urobilinogen Ur Leukocyte Esterase Opiates Screen Methadone Screen Barbiturate Screen Phencyclidine Screen Ur Amphetamines Screen MDMA (Ecstasy) Screen Benzodiazepines Screen Cocaine Screen U Marijuana (THC) Screen 11/30/18 11/30/18 11/30/18 19:30 20:15 20:34 WBC RBC Hgb Hct MCV MCH MCHC RDW Plt Count MPV Absolute Neuts (auto) Neutrophils % Neutrophils % (Manual) Band Neutrophils % Lymphocytes % Lymphocytes % (Manual) Monocytes % Monocytes % (Manual) Eosinophils % Eosinophils % (Manual) Basophils % Basophils % (Manual) Myelocytes % (Man) Promyelocytes % (Man) Blast Cells % (Manual) Nucleated RBC % Metamyelocytes Hypochromia Toxic Granulation Dohle Bodies Platelet Estimate Polychromasia Poikilocytosis Basophilic Stippling Anisocytosis Microcytosis Macrocytosis Spherocytes Sickle Cells Target Cells Tear Drop Cells Ovalocytes Stomatocytes Helmet Cells [place] Bodies [place]mer Rings [place] Cells Acanthocytes (Spur) Rouleaux Fragmented RBCs Schistocytes Anticoagulation Therapy No Result Required. Puncture Site Right brachial ABG pH 7.33 L ABG pCO2 at Pt Temp 52.7 H ABG pO2 at Pt Temp 54.6 L ABG HCO3 27.0 ABG O2 Sat (Measured) 85.7 L ABG O2 Content 18.7 ABG Base Excess 0.4 Og Test Positive Carboxyhemoglobin 0.8 Methemoglobin 0.5 O2 Delivery Device No Result Required. Oxygen Flow Rate 4l Vent Mode No Result Required. Vent Rate No Result Required. Mechanical Rate No Result Required. PEEP Pressure Support Vent No Result Required. Sodium Potassium Chloride Carbon Dioxide Anion Gap BUN Creatinine Est GFR (CKD-EPI)AfAm Est GFR (CKD-EPI)NonAf POC Glucometer Random Glucose Lactic Acid 2.9 H* Calcium Phosphorus Magnesium Total Bilirubin AST ALT Alkaline Phosphatase Troponin I Total Protein Albumin Urine Color Urine Appearance Urine pH Ur Specific Elizabeth Urine Protein Urine Glucose (UA) Urine Ketones Urine Blood Urine Nitrite Urine Bilirubin Urine Urobilinogen Ur Leukocyte Esterase Opiates Screen Methadone Screen Barbiturate Screen Phencyclidine Screen Ur Amphetamines Screen MDMA (Ecstasy) Screen Benzodiazepines Screen Cocaine Screen U Marijuana (THC) Screen 11/30/18 11/30/18 12/01/18 21:35 21:35 03:30 WBC RBC Hgb Hct MCV MCH MCHC RDW Plt Count MPV Absolute Neuts (auto) Neutrophils % Neutrophils % (Manual) Band Neutrophils % Lymphocytes % Lymphocytes % (Manual) Monocytes % Monocytes % (Manual) Eosinophils % Eosinophils % (Manual) Basophils % Basophils % (Manual) Myelocytes % (Man) Promyelocytes % (Man) Blast Cells % (Manual) Nucleated RBC % Metamyelocytes Hypochromia Toxic Granulation Dohle Bodies Platelet Estimate Polychromasia Poikilocytosis Basophilic Stippling Anisocytosis Microcytosis Macrocytosis Spherocytes Sickle Cells Target Cells Tear Drop Cells Ovalocytes Stomatocytes Helmet Cells [place] Bodies Elmer Rings [place] Cells Acanthocytes (Spur) Rouleaux Fragmented RBCs Schistocytes Anticoagulation Therapy No Result Required. Puncture Site Right brachial ABG pH 7.33 L ABG pCO2 at Pt Temp 49.3 H ABG pO2 at Pt Temp 73.9 L ABG HCO3 25.4 ABG O2 Sat (Measured) 94.0 L ABG O2 Content 19.9 ABG Base Excess -0.7 Og Test Positive Carboxyhemoglobin Methemoglobin O2 Delivery Device Vent Oxygen Flow Rate 50% Vent Mode A/c Vent Rate 14 Mechanical Rate Yes PEEP 5.0 Pressure Support Vent 450 Sodium Potassium Chloride Carbon Dioxide Anion Gap BUN Creatinine Est GFR (CKD-EPI)AfAm Est GFR (CKD-EPI)NonAf POC Glucometer Random Glucose Lactic Acid Calcium Phosphorus Magnesium Total Bilirubin AST ALT Alkaline Phosphatase Troponin I Total Protein Albumin Urine Color Yellow Urine Appearance Clear Urine pH 6.0 Ur Specific Elizabeth 1.022 Urine Protein Negative Urine Glucose (UA) Trace Urine Ketones Negative Urine Blood Negative Urine Nitrite Negative Urine Bilirubin Negative Urine Urobilinogen 0.2 Ur Leukocyte Esterase Negative Opiates Screen Negative Methadone Screen Positive A* Barbiturate Screen Negative Phencyclidine Screen Negative Ur Amphetamines Screen Negative MDMA (Ecstasy) Screen Negative Benzodiazepines Screen Positive A* Cocaine Screen Positive A* U Marijuana (THC) Screen Negative 12/01/18 12/01/18 12/01/18 04:15 04:15 04:15 WBC 12.4 H RBC 4.82 Hgb 14.9 Hct 43.6 MCV 90.5 MCH 30.9 MCHC 34.2 RDW 12.7 Plt Count 213 MPV 9.0 Absolute Neuts (auto) Neutrophils % Neutrophils % (Manual) Band Neutrophils % Lymphocytes % Lymphocytes % (Manual) Monocytes % Monocytes % (Manual) Eosinophils % Eosinophils % (Manual) Basophils % Basophils % (Manual) Myelocytes % (Man) Promyelocytes % (Man) Blast Cells % (Manual) Nucleated RBC % Metamyelocytes Hypochromia Toxic Granulation Dohle Bodies Platelet Estimate Polychromasia Poikilocytosis Basophilic Stippling Anisocytosis Microcytosis Macrocytosis Spherocytes Sickle Cells Target Cells Tear Drop Cells Ovalocytes Stomatocytes Helmet Cells [place] Bodies [place] Rings [place] Cells Acanthocytes (Spur) Rouleaux Fragmented RBCs Schistocytes Anticoagulation Therapy Puncture Site ABG pH ABG pCO2 at Pt Temp ABG pO2 at Pt Temp ABG HCO3 ABG O2 Sat (Measured) ABG O2 Content ABG Base Excess Og Test Carboxyhemoglobin Methemoglobin O2 Delivery Device Oxygen Flow Rate Vent Mode Vent Rate Mechanical Rate PEEP Pressure Support Vent Sodium 142 Potassium 4.2 Chloride 107 Carbon Dioxide 27 Anion Gap 9 BUN 12.1 Creatinine 0.9 Est GFR (CKD-EPI)AfAm 115.83 Est GFR (CKD-EPI)NonAf 99.94 POC Glucometer Random Glucose 118 H Lactic Acid 3.2 H* Calcium 8.4 L Phosphorus 1.8 L Magnesium 2.3 Total Bilirubin 0.4 AST 25 ALT 22 Alkaline Phosphatase 73 Troponin I 0.03 Total Protein 6.1 L Albumin 3.2 L Urine Color Urine Appearance Urine pH Ur Specific Elizabeth Urine Protein Urine Glucose (UA) Urine Ketones Urine Blood Urine Nitrite Urine Bilirubin Urine Urobilinogen Ur Leukocyte Esterase Opiates Screen Methadone Screen Barbiturate Screen Phencyclidine Screen Ur Amphetamines Screen MDMA (Ecstasy) Screen Benzodiazepines Screen Cocaine Screen U Marijuana (THC) Screen 12/01/18 12/01/18 12/01/18 05:46 05:46 06:40 WBC 12.6 H RBC 4.95 Hgb 15.3 Hct 44.7 MCV 90.4 MCH 31.0 MCHC 34.3 RDW 12.9 Plt Count 214 MPV 9.0 Absolute Neuts (auto) 11.7 H Neutrophils % 92.8 H Neutrophils % (Manual) 70.0 Band Neutrophils % 22.0 Lymphocytes % 4.4 L D Lymphocytes % (Manual) 3.0 L Monocytes % 2.6 L Monocytes % (Manual) 3 L Eosinophils % 0.0 D Eosinophils % (Manual) 0.0 Basophils % 0.2 Basophils % (Manual) 1.0 Myelocytes % (Man) 0 Promyelocytes % (Man) 0 Blast Cells % (Manual) 0 Nucleated RBC % 0 Metamyelocytes 0 Hypochromia 0 Toxic Granulation 0 Dohle Bodies 0 Platelet Estimate Normal Polychromasia 0 Poikilocytosis 0 Basophilic Stippling 0 Anisocytosis 0 Microcytosis 0 Macrocytosis 0 Spherocytes 0 Sickle Cells 0 Target Cells 0 Tear Drop Cells 0 Ovalocytes 0 Stomatocytes 0 Helmet Cells 0 [place] Bodies 0 Elmer Rings 0 Hailey Cells 0 Acanthocytes (Spur) 0 Rouleaux 0 Fragmented RBCs 0 Schistocytes 0 Anticoagulation Therapy No Result Required. Puncture Site Right brachial ABG pH 7.33 L ABG pCO2 at Pt Temp 49.5 H ABG pO2 at Pt Temp 106 H ABG HCO3 25.3 ABG O2 Sat (Measured) 97.8 ABG O2 Content 19.9 ABG Base Excess -0.8 Og Test Positive Carboxyhemoglobin Methemoglobin O2 Delivery Device Vent Oxygen Flow Rate 50% Vent Mode A/c Vent Rate 14 Mechanical Rate Yes PEEP 5.0 Pressure Support Vent 450 Sodium 142 Potassium 4.2 Chloride 106 Carbon Dioxide 28 Anion Gap 9 BUN 12.2 Creatinine 0.9 Est GFR (CKD-EPI)AfAm 115.83 Est GFR (CKD-EPI)NonAf 99.94 POC Glucometer Random Glucose 139 H Lactic Acid Calcium 8.6 Phosphorus Magnesium Total Bilirubin 0.4 AST 23 ALT 22 Alkaline Phosphatase 75 Troponin I Total Protein 6.1 L Albumin 3.3 L Urine Color Urine Appearance Urine pH Ur Specific Elizabeth Urine Protein Urine Glucose (UA) Urine Ketones Urine Blood Urine Nitrite Urine Bilirubin Urine Urobilinogen Ur Leukocyte Esterase Opiates Screen Methadone Screen Barbiturate Screen Phencyclidine Screen Ur Amphetamines Screen MDMA (Ecstasy) Screen Benzodiazepines Screen Cocaine Screen U Marijuana (THC) Screen 12/01/18 12/01/18 12/01/18 06:42 09:03 11:39 WBC RBC Hgb Hct MCV MCH MCHC RDW Plt Count MPV Absolute Neuts (auto) Neutrophils % Neutrophils % (Manual) Band Neutrophils % Lymphocytes % Lymphocytes % (Manual) Monocytes % Monocytes % (Manual) Eosinophils % Eosinophils % (Manual) Basophils % Basophils % (Manual) Myelocytes % (Man) Promyelocytes % (Man) Blast Cells % (Manual) Nucleated RBC % Metamyelocytes Hypochromia Toxic Granulation Dohle Bodies Platelet Estimate Polychromasia Poikilocytosis Basophilic Stippling Anisocytosis Microcytosis Macrocytosis Spherocytes Sickle Cells Target Cells Tear Drop Cells Ovalocytes Stomatocytes Helmet Cells [place] Bodies [place] Rings [place] Cells Acanthocytes (Spur) Rouleaux Fragmented RBCs Schistocytes Anticoagulation Therapy Puncture Site ABG pH ABG pCO2 at Pt Temp ABG pO2 at Pt Temp ABG HCO3 ABG O2 Sat (Measured) ABG O2 Content ABG Base Excess Og Test Carboxyhemoglobin Methemoglobin O2 Delivery Device Oxygen Flow Rate Vent Mode Vent Rate Mechanical Rate PEEP Pressure Support Vent Sodium Potassium Chloride Carbon Dioxide Anion Gap BUN Creatinine Est GFR (CKD-EPI)AfAm Est GFR (CKD-EPI)NonAf POC Glucometer 167 123 Random Glucose Lactic Acid 3.5 H* Calcium Phosphorus Magnesium Total Bilirubin AST ALT Alkaline Phosphatase Troponin I Total Protein Albumin Urine Color Urine Appearance Urine pH Ur Specific Elizabeth Urine Protein Urine Glucose (UA) Urine Ketones Urine Blood Urine Nitrite Urine Bilirubin Urine Urobilinogen Ur Leukocyte Esterase Opiates Screen Methadone Screen Barbiturate Screen Phencyclidine Screen Ur Amphetamines Screen MDMA (Ecstasy) Screen Benzodiazepines Screen Cocaine Screen U Marijuana (THC) Screen 12/01/18 12/01/18 15:00 17:39 WBC RBC Hgb Hct MCV MCH MCHC RDW Plt Count MPV Absolute Neuts (auto) Neutrophils % Neutrophils % (Manual) Band Neutrophils % Lymphocytes % Lymphocytes % (Manual) Monocytes % Monocytes % (Manual) Eosinophils % Eosinophils % (Manual) Basophils % Basophils % (Manual) Myelocytes % (Man) Promyelocytes % (Man) Blast Cells % (Manual) Nucleated RBC % Metamyelocytes Hypochromia Toxic Granulation Dohle Bodies Platelet Estimate Polychromasia Poikilocytosis Basophilic Stippling Anisocytosis Microcytosis Macrocytosis Spherocytes Sickle Cells Target Cells Tear Drop Cells Ovalocytes Stomatocytes Helmet Cells [place] Bodies Elmer Rings Hailey Cells Acanthocytes (Spur) Rouleaux Fragmented RBCs Schistocytes Anticoagulation Therapy Puncture Site ABG pH ABG pCO2 at Pt Temp ABG pO2 at Pt Temp ABG HCO3 ABG O2 Sat (Measured) ABG O2 Content ABG Base Excess Og Test Carboxyhemoglobin Methemoglobin O2 Delivery Device Oxygen Flow Rate Vent Mode Vent Rate Mechanical Rate PEEP Pressure Support Vent Sodium Potassium Chloride Carbon Dioxide Anion Gap BUN Creatinine Est GFR (CKD-EPI)AfAm Est GFR (CKD-EPI)NonAf POC Glucometer 137 Random Glucose Lactic Acid 2.8 H* Calcium Phosphorus Magnesium Total Bilirubin AST ALT Alkaline Phosphatase Troponin I Total Protein Albumin Urine Color Urine Appearance Urine pH Ur Specific Elizabeth Urine Protein Urine Glucose (UA) Urine Ketones Urine Blood Urine Nitrite Urine Bilirubin Urine Urobilinogen Ur Leukocyte Esterase Opiates Screen Methadone Screen Barbiturate Screen Phencyclidine Screen Ur Amphetamines Screen MDMA (Ecstasy) Screen Benzodiazepines Screen Cocaine Screen U Marijuana (THC) Screen Active Medications Generic Name Dose Route Start Last Admin Trade Name Freq PRN Reason Stop Dose Admin Albuterol/Ipratropium 1 amp 12/01/18 08:00 12/01/18 16:46 Duoneb - NEB 1 amp RQID MARAL Administration Chlorhexidine Gluconate 1 applic 12/01/18 22:00 Hibiclens For Decolonization - TP HS MARAL Heparin Sodium (Porcine) 5,000 unit 12/01/18 02:00 12/01/18 17:51 Heparin - SQ 5,000 unit Q8H-IV MARAL Administration Propofol 1,000,000 mcg in 100 mls @ 9.798 mls/hr 12/01/18 00:45 12/01/18 05: 25 Diprivan - IVPB 25 mcg/kg/min TITR MARAL 12.247 mls/hr Titration Protocol 20 MCG/KG/MIN Levofloxacin 500 mg in 100 mls @ 100 mls/hr 12/02/18 10:00 Levaquin 500 Mg Premixed Ivpb - IVPB DAILY MARAL Protocol Lactated Ringer's 1,000 ml in 1,000 mls @ 100 mls/hr 12/01/18 08:00 12/01/18 11:36 Lactated Ringers Solution IV 12/02/18 17:59 100 mls/hr ASDIR MARAL Administration Clindamycin Phosphate 600 mg in 50 mls @ 100 mls/hr 12/01/18 10:00 12/01/18 17:51 Cleocin 600 Mg Premix Ivpb - IVPB 100 mls/hr Q8H-IV MARAL Administration Protocol Insulin Aspart 1 vial 12/01/18 07:00 12/01/18 17:41 Novolog Vial Sliding Scale - SQ Not Given TIDAC [facility] Protocol Methylprednisolone Sodium Succinate 60 mg 11/30/18 23:30 12/01/18 17:51 Solu-Medrol - IVPB 60 mg Q6H MARAL Administration Mupirocin 1 applic 12/01/18 10:00 12/01/18 11:00 Bactroban Ointment (For Decolonization) - NS 12/06/18 09:59 1 applic BID MARAL Administration Valproate Sodium 500 mg 12/01/18 10:00 12/01/18 11:00 Depacon Injection - IVPB 500 mg BID MARAL Administration ASSESSMENT/PLAN: Patient is a 48 year old male with PMH of IDDM, HTN, epilepsy, alcohol and heroin abuse, and anxiety who was BIBEMS from [facility] with AMS. #Sepsis 2/2 PNA with acute hypercapnic respiratory failure - Cont pt on clinda 600 IVPB, levofloxacin 750mg Q24H - Cont solumedrol 60mg Q6H -Pt sedated on propofol and intubated. Vent settings V/C mode, FiO2 50%, RR 14, tidal volume 450, PEEP 5 Pending blood, urine, sputum cx rpting CXR in AM Lactic acid 2.8, Cont to trend Hydrate with IV LR 100mL/hr Consulting ID, f/u recommendations #Mild tropinemia - Could be 2/2 sepsis but with hx of persistent chest pain cannot r/o ACS - Trop neg x2 yesterday. Today, trop: 0.04. F/u repeat - EKG: NSR, no ST elevations of depressions - Cont cardiac monitoring #Substance abuse - Pt is sedated with propofol, no need to cont detox with librium or methadone at this time #HTN contuining to hold BP meds for now as pt is septic #IDDM SSI TIDAC #Epilepsy Pt intubated, continuing depakote po 500mg BID. #FEN Cont IV LR @ 100ml/hr Monitor lytes and replete as needed NPO for now given AMS and intubation #DVT ppx Heparin SQ #Dispo Monitor in ICU Visit type - Emergency Visit Emergency Visit: Yes ED Registration Date: 11/30/18 Care time: The patient presented to the Emergency Department on the above date and was hospitalized for further evaluation of their emergent condition. - New Patient This patient is new to me today: Yes Date on this admission: 12/01/18 - Critical Care Critical Care patient: Yes Total Critical Care Time (in minutes): 35 Critical Care Statement: The care of this patient involved high complexity decision making to prevent further life threatening deterioration of the patient 's condition and/or to evaluate & treat vital organ system(s) failure or risk of failure. - Discharge Referral Referred to [facility] Med [facility] No ATTENDING PHYSICIAN STATEMENT I saw and evaluated the patient. I reviewed the resident's note and discussed the case with the resident. I agree with the resident's findings and plan as documented. SUBJECTIVE: OBJECTIVE: ASSESSMENT AND PLAN:
--- NOTE | 2018-12-01 20:17 | PN ---
Teaching Attending Note Name of Resident: Ross Wasserman ATTENDING PHYSICIAN STATEMENT I saw and evaluated the patient. I reviewed the resident's note and discussed the case with the resident. I agree with the resident's findings and plan as documented. SUBJECTIVE: Patient is in ICU INTUBATED SEDATED OBJECTIVE: Vital Signs Temperature 98.0 F 12/01/18 14:00 Pulse Rate 72 12/01/18 18:00 Respiratory Rate 20 12/01/18 18:36 Blood Pressure 96/66 12/01/18 18:00 O2 Sat by Pulse Oximetry (%) 99 12/01/18 19:46 GENERAL: The patient is intubated sedated in icu. HEAD: Normal with no signs of trauma. EYES: PERRL, extraocular movements intact, sclera anicteric, conjunctiva clear. ENT: Ears normal, positive for ET tube . NECK: Trachea midline, intubated . LUNGS: , decreased BS BL, positive for E-tube HEART: Regular rate and rhythm, S1, S2 without murmur, rub or gallop. ABDOMEN: Soft, nontender, nondistended, normoactive bowel sounds, no guarding, no rebound, no hepatosplenomegaly, no masses appreciated. EXTREMITIES: 2+ pulses, warm, well-perfused, no edema. NEUROLOGICAL: Cranial nerves II through XII grossly intact. PSYCH: Normal mood, normal affect. SKIN: Warm, dry, normal turgor, no rashes or lesions noted CBCD WBC 12.6 K/mm3 (4.0-10.0) H 12/01/18 05:46 RBC 4.95 M/mm3 (4.00-5.60) 12/01/18 05:46 Hgb 15.3 GM/dL (11.7-16.9) 12/01/18 05:46 Hct 44.7 % (35.4-49) 12/01/18 05:46 MCV 90.4 fl (80-96) 12/01/18 05:46 MCHC 34.3 g/dl (32.0-35.9) 12/01/18 05:46 RDW 12.9 % (11.9-15.9) 12/01/18 05:46 Plt Count 214 K/MM3 (134-434) 12/01/18 05:46 MPV 9.0 fl (7.5-11.1) 12/01/18 05:46 CMP Sodium 142 mmol/L (136-145) 12/01/18 05:46 Potassium 4.2 mmol/L (3.5-5.1) 12/01/18 05:46 Chloride 106 mmol/L (98-107) 12/01/18 05:46 Carbon Dioxide 28 mmol/L (21-32) 12/01/18 05:46 Anion Gap 9 MMOL/L (8-16) 12/01/18 05:46 BUN 12.2 mg/dL (7-18) 12/01/18 05:46 Creatinine 0.9 mg/dL (0.55-1.3) 12/01/18 05:46 Random Glucose 139 mg/dL (74-106) H 12/01/18 05:46 Calcium 8.6 mg/dL (8.5-10.1) 12/01/18 05:46 Total Bilirubin 0.4 mg/dL (0.2-1) 12/01/18 05:46 AST 23 U/L (15-37) 12/01/18 05:46 ALT 22 U/L (13-61) 12/01/18 05:46 Alkaline Phosphatase 75 U/L (45-117) 12/01/18 05:46 Total Protein 6.1 g/dl (6.4-8.2) L 12/01/18 05:46 Albumin 3.3 g/dl (3.4-5.0) L 12/01/18 05:46 CARDIAC ENZYMES Troponin I 0.03 ng/ml (0.00-0.05) 12/01/18 04:15 Current Medications Generic Name Dose Route Start Last Admin Trade Name Freq PRN Reason Stop Dose Admin Albuterol/Ipratropium 1 amp 12/01/18 08:00 12/01/18 16:46 Duoneb - NEB 1 amp RQID MARAL Administration Chlorhexidine Gluconate 1 applic 12/01/18 22:00 Hibiclens For Decolonization - TP HS MARAL Heparin Sodium (Porcine) 5,000 unit 12/01/18 02:00 12/01/18 17:51 Heparin - SQ 5,000 unit Q8H-IV MARAL Administration Propofol 1,000,000 mcg in 100 mls @ 9.798 mls/hr 12/01/18 00:45 12/01/18 15: 00 Diprivan - IVPB 30 mcg/kg/min TITR MARAL 14.696 mls/hr Titration Protocol 20 MCG/KG/MIN Levofloxacin 500 mg in 100 mls @ 100 mls/hr 12/02/18 10:00 Levaquin 500 Mg Premixed Ivpb - IVPB DAILY MARAL Protocol Lactated Ringer's 1,000 ml in 1,000 mls @ 100 mls/hr 12/01/18 08:00 12/01/18 11:36 Lactated Ringers Solution IV 12/02/18 17:59 100 mls/hr ASDIR MARAL Administration Clindamycin Phosphate 600 mg in 50 mls @ 100 mls/hr 12/01/18 10:00 12/01/18 17:51 Cleocin 600 Mg Premix Ivpb - IVPB 100 mls/hr Q8H-IV MARAL Administration Protocol Insulin Aspart 1 vial 12/01/18 07:00 12/01/18 17:41 Novolog Vial Sliding Scale - SQ Not Given TIDAC [facility] Protocol Methylprednisolone Sodium Succinate 60 mg 11/30/18 23:30 12/01/18 17:51 Solu-Medrol - IVPB 60 mg Q6H MARAL Administration Mupirocin 1 applic 12/01/18 10:00 12/01/18 11:00 Bactroban Ointment (For Decolonization) - NS 12/06/18 09:59 1 applic BID MARAL Administration Valproate Sodium 500 mg 12/01/18 10:00 12/01/18 11:00 Depacon Injection - IVPB 500 mg BID MARAL Administration Home Medications Medication Instructions Recorded Divalproex [Depakote -] 500 mg PO BID 11/17/17 Fluoxetine HCl [Prozac -] 20 mg PO DAILY 11/17/17 Benztropine Mesylate [Cogentin -] 1 mg PO BID #60 tablet 11/18/17 Risperidone [Risperdal -] 1 mg PO BID #60 tablet 11/18/17 Amlodipine Besylate [Norvasc -] 5 mg PO BID #30 tablet 12/16/17 Cyclobenzaprine HCl 5 mg PO DAILY 11/28/18 Methadone (Detox) [Dolophine -] 0 mg PO ASDIR 11/30/18 Microbiology 11/30/18 19:30 Blood - Peripheral Venous Blood Culture - Preliminary NO GROWTH OBTAINED AFTER 24 HOURS, INCUBATION TO CONTINUE FOR 4 DAYS. 11/30/18 19:30 Blood - Peripheral Venous Blood Culture - Preliminary NO GROWTH OBTAINED AFTER 24 HOURS, INCUBATION TO CONTINUE FOR 4 DAYS. 12/01/18 07:30 Sputum - Endotrachea Suction/Ventilator Gram Stain - Final ASSESSMENT AND PLAN: Patient is a 48 year old male with PMHx of IDDM, HTN, epilepsy, alcohol and heroin abuse, and anxiety PRESENTED TO ED. and was found to have bl Pneumonia presented from [facility] with AMS. # Acute hypoxic respiratory failure due to having bl pneumonia (CAP vs Aspiration) on clindamycin and levaquin # Sepsis due to PNA (CAP vs Aspiration) on clindamycin and levaquin , cx pending , urinary antigens for legionella and pneumcoccus #Mild tropinemia with EKG: NSR, no ST elevations of depressions #Polysubstance abuse on profofol #HTN stable #IDDM: SS with coverage #Epilepsy: on depacone iv DVT ppx:Heparin SQ Monitor in ICU
[2018-12-01] MEDS ORDERED: PT OWN MED DRAWER 7, Y5N ONE (21:34)
[2018-12-01] MEDS: CHLORHEXIDINE GLUCONATE 4% CLEANSER FOR DECOLONIZATION TP SCH (21:42)
[2018-12-02] MEDS: PROPOFOL 1,000,000 MCG/100 ML VIAL IVPB SCH (00:51)
[2018-12-02] MEDS: CLINDAMYCIN 600MG PREMIX IVPB 600 MG/50 ML BAG IVPB SCH ×3 (01:02→18:13)
[2018-12-02] MEDS: HEPARIN NA (PORCINE) 5,000 UNITS/ML 1ML VIAL SQ SCH ×3 (01:02→18:13)
[2018-12-02] MEDS: LACTATED RINGERS SOLUTION 1,000 ML/1,000 ML INFUS.BAG IV SCH ×2 (05:17→10:52)
[2018-12-02] MEDS: methylPREDNISolone NA SUCC 40 MG/1 ML VIAL IVPB SCH (05:45)
[2018-12-02] MEDS: INSULIN SLIDING SCALE (NOVOLOG) 1 VIAL SQ SCH ×3 (06:11→17:02)
--- NOTE | 2018-12-02 07:13 | PN ---
Physical Exam: SUBJECTIVE: Patient seen and examined at bedside this morning. No acute overnight events. Patient was weaned off sedation this morning and extubated to 40% venti- mask. OBJECTIVE: Vital Signs Period Temp Pulse Resp BP Sys/Stroud Pulse Ox Last 24 Hr 97.1 F-98.0 F 67-88 13-21 86-121/61-81 96-100 GENERAL: Patient is awake, lethargic. No apparent distress. HEAD: Normocephalic, atraumatic. EYES: PERRL, sclera anicteric, conjunctiva clear. EARS, NOSE, THROAT: Oropharynx moist, no exudates. NECK: Supple without lymphadenopathy, or JVD. Negative stridor. LUNGS: Breath sounds equal, with diffuse rhonchi bilaterally (right greater than left) HEART: Regular rate and rhythm, normal S1 and S2 without murmur, rub or gallop. ABDOMEN: Soft, nontender, not distended, normoactive bowel sounds, no guarding, no rebound, no masses. No hepatomegaly or splenomegaly. EXTREMITIES: 2+ radial, dorsalis pedis pulses bilaterally, warm, well-perfused. NEUROLOGICAL: Patient responds to commands and moves all 4 extremities. SKIN: Warm, dry. Laboratory Results - last 24 hr 12/01/18 12/01/18 12/01/18 05:46 06:40 09:03 WBC 12.6 H RBC 4.95 Hgb 15.3 Hct 44.7 MCV 90.4 MCH 31.0 MCHC 34.3 RDW 12.9 Plt Count 214 MPV 9.0 Absolute Neuts (auto) 11.7 H Neutrophils % 92.8 H Neutrophils % (Manual) 70.0 Band Neutrophils % 22.0 Lymphocytes % 4.4 L D Lymphocytes % (Manual) 3.0 L Monocytes % 2.6 L Monocytes % (Manual) 3 L Eosinophils % 0.0 D Eosinophils % (Manual) 0.0 Basophils % 0.2 Basophils % (Manual) 1.0 Myelocytes % (Man) 0 Promyelocytes % (Man) 0 Blast Cells % (Manual) 0 Nucleated RBC % 0 Metamyelocytes 0 Hypochromia 0 Toxic Granulation 0 Dohle Bodies 0 Platelet Estimate Normal Polychromasia 0 Poikilocytosis 0 Basophilic Stippling 0 Anisocytosis 0 Microcytosis 0 Macrocytosis 0 Spherocytes 0 Sickle Cells 0 Target Cells 0 Tear Drop Cells 0 Ovalocytes 0 Stomatocytes 0 Helmet Cells 0 [place]-Oscarville Bodies 0 Fritch Rings 0 Hailey Cells 0 Acanthocytes (Spur) 0 Rouleaux 0 Fragmented RBCs 0 Schistocytes 0 ABG pH 7.33 L ABG pCO2 at Pt Temp 49.5 H ABG pO2 at Pt Temp 106 H ABG HCO3 25.3 ABG O2 Sat (Measured) 97.8 ABG O2 Content 19.9 ABG Base Excess -0.8 POC Glucometer Lactic Acid 3.5 H* 12/01/18 12/01/18 12/01/18 11:39 15:00 17:39 WBC RBC Hgb Hct MCV MCH MCHC RDW Plt Count MPV Absolute Neuts (auto) Neutrophils % Neutrophils % (Manual) Band Neutrophils % Lymphocytes % Lymphocytes % (Manual) Monocytes % Monocytes % (Manual) Eosinophils % Eosinophils % (Manual) Basophils % Basophils % (Manual) Myelocytes % (Man) Promyelocytes % (Man) Blast Cells % (Manual) Nucleated RBC % Metamyelocytes Hypochromia Toxic Granulation Dohle Bodies Platelet Estimate Polychromasia Poikilocytosis Basophilic Stippling Anisocytosis Microcytosis Macrocytosis Spherocytes Sickle Cells Target Cells Tear Drop Cells Ovalocytes Stomatocytes Helmet Cells [place]ulu[place]scar[place] Bodies Fritch Rings Dufur Cells Acanthocytes (Spur) Rouleaux Fragmented RBCs Schistocytes ABG pH ABG pCO2 at Pt Temp ABG pO2 at Pt Temp ABG HCO3 ABG O2 Sat (Measured) ABG O2 Content ABG Base Excess POC Glucometer 123 137 Lactic Acid 2.8 H* 12/02/18 06:10 WBC RBC Hgb Hct MCV MCH MCHC RDW Plt Count MPV Absolute Neuts (auto) Neutrophils % Neutrophils % (Manual) Band Neutrophils % Lymphocytes % Lymphocytes % (Manual) Monocytes % Monocytes % (Manual) Eosinophils % Eosinophils % (Manual) Basophils % Basophils % (Manual) Myelocytes % (Man) Promyelocytes % (Man) Blast Cells % (Manual) Nucleated RBC % Metamyelocytes Hypochromia Toxic Granulation Dohle Bodies Platelet Estimate Polychromasia Poikilocytosis Basophilic Stippling Anisocytosis Microcytosis Macrocytosis Spherocytes Sickle Cells Target Cells Tear Drop Cells Ovalocytes Stomatocytes Helmet Cells Zuluaga-Oscarville Bodies Fritch Rings Hailey Cells Acanthocytes (Spur) Rouleaux Fragmented RBCs Schistocytes ABG pH ABG pCO2 at Pt Temp ABG pO2 at Pt Temp ABG HCO3 ABG O2 Sat (Measured) ABG O2 Content ABG Base Excess POC Glucometer 163 Lactic Acid Active Medications Generic Name Dose Route Start Last Admin Trade Name Shana PRN Reason Stop Dose Admin Albuterol/Ipratropium 1 amp 12/01/18 08:00 12/01/18 21:33 Duoneb - NEB 1 amp RQID MARAL Administration Chlorhexidine Gluconate 1 applic 12/01/18 22:00 12/01/18 21:42 Hibiclens For Decolonization - TP 1 applic HS MARAL Administration Heparin Sodium (Porcine) 5,000 unit 12/01/18 02:00 12/02/18 01:02 Heparin - SQ 5,000 unit Q8H-IV MARAL Administration Propofol 1,000,000 mcg in 100 mls @ 9.798 mls/hr 12/01/18 00:45 12/02/18 00: 51 Diprivan - IVPB 28 mcg/kg/min TITR MARAL 13.717 mls/hr Administration Protocol 20 MCG/KG/MIN Levofloxacin 500 mg in 100 mls @ 100 mls/hr 12/02/18 10:00 Levaquin 500 Mg Premixed Ivpb - IVPB DAILY MARAL Protocol Lactated Ringer's 1,000 ml in 1,000 mls @ 100 mls/hr 12/01/18 08:00 12/02/18 05:17 Lactated Ringers Solution IV 12/02/18 17:59 100 mls/hr ASDIR MARAL Administration Clindamycin Phosphate 600 mg in 50 mls @ 100 mls/hr 12/01/18 10:00 12/02/18 01:02 Cleocin 600 Mg Premix Ivpb - IVPB 100 mls/hr Q8H-IV MARAL Administration Protocol Insulin Aspart 1 vial 12/01/18 07:00 12/02/18 06:11 Novolog Vial Sliding Scale - SQ 2 units TIDAC MARAL Administration Protocol Methylprednisolone Sodium Succinate 60 mg 11/30/18 23:30 12/02/18 05:45 Solu-Medrol - IVPB 60 mg Q6H MARAL Administration Mupirocin 1 applic 12/01/18 10:00 12/01/18 21:42 Bactroban Ointment (For Decolonization) - NS 12/06/18 09:59 1 applic BID MARAL Administration Valproate Sodium 500 mg 12/01/18 10:00 12/01/18 21:42 Depacon Injection - IVPB 500 mg BID MARAL Administration ASSESSMENT/PLAN: Acute hypoxic, hypercapnic respiratory failure Sepsis secondary to right lower lobe pneumonia Heroin dependence Alcohol dependence Diabetes mellitus S/P unwitnessed fall Suspected seizure activity Neurologic -Patient weaned off sedation. -CT head reveals no calvarium fracture, no intracranial bleeding. -Depacote 500mg IV BID -Monitor for signs of withdrawal, and reinstate Librium protocol if necessary. -Reinstate Methadone taper at 20mg PO -Fall precautions. Pulmonary -Patient remains intubated. -Vent settings A/C mode, FiO2 35%, RR 14, tidal volume 450, PEEP 5. Peak pressures 21, Plateu pressures at 7.1 -ABG reveals improvement of hypercarbia s/p intubation. -Chest radiograph reveals bilateral infiltrates- ?aspiration pneumonia. -F/U CT chest -Solu-medrol 40mg IV Q8 hours Cardiac -Troponin 0.04 -> 0.03 -ECG reveals normal sinus rhythm at 95BPM, without ischemic changes. -Cardiac monitoring while in ICU Gastrointestinal -NPO, pending speech swallow study. -Protonix 40mg IV push daily for prophylaxis Infectious disease -Right lower lobe pneumonia ?aspiration -Clindamycin 600mg IV Q8 hours (day #2) -Levofloxacin 750mg IV daily (day #2) -Lactic acid peaked at 3.5 -IV fluid hydration; normal saline at 100mL/ hour -ID consult (Dr. Warner) appreciated. Endocrine -Insulin sliding scale ACHS -Fingerstick blood glucose monitoring. FEN -Fluids: IV normal saline at 100mL/ hour -Electrolytes: Follow CMP, replete as necesary -Nutriton: NPO Prophylaxis -Heparin 5000u subq TID Disposition: We will continue to follow the patient. Thank you for this consultative opportunity. Visit type - Emergency Visit Emergency Visit: Yes ED Registration Date: 11/30/18 Care time: The patient presented to the Emergency Department on the above date and was hospitalized for further evaluation of their emergent condition. - New Patient This patient is new to me today: No - Critical Care Critical Care patient: Yes Total Critical Care Time (in minutes): 35 Critical Care Statement: The care of this patient involved high complexity decision making to prevent further life threatening deterioration of the patient 's condition and/or to evaluate & treat vital organ system(s) failure or risk of failure. - Discharge Referral Referred to [facility] No ATTENDING PHYSICIAN STATEMENT I saw and evaluated the patient. I reviewed the resident's note and discussed the case with the resident. I agree with the resident's findings and plan as documented. SUBJECTIVE: OBJECTIVE: ASSESSMENT AND PLAN:
[2018-12-02 07:28] LABS: BASO % 0.4 % (0-2.0); HEMATOCRIT 43.9 % (35.4-49); HEMOGLOBIN 15.2 GM/dL (11.7-16.9); LYMPH % 5.2 % (8-40); MCH 31.5 pg (25.7-33.7); MCHC 34.5 g/dl (32.0-35.9); MEAN CELL VOLUME 91.2 fl (80-96); MEAN PLT VOLUME 9.5 fl (7.5-11.1); MONO % 3.8 % (3.8-10.2); NEUT % 90.6 % (42.8-82.8); PLATELET COUNT 191 K/MM3 (134-434); RBC 4.81 M/mm3 (4.00-5.60); RDW 12.9 % (11.9-15.9)
[2018-12-02 07:59] LABS: BILIRUBIN,TOTAL 0.6 mg/dL (0.2-1); BLOOD UREA NITROGEN 14.6 mg/dL (7-18); CALCIUM 9.3 mg/dL (8.5-10.1); CREATININE 0.9 mg/dL (0.55-1.3); POTASSIUM 4.3 mmol/L (3.5-5.1); TOT PROT 6.3 g/dl (6.4-8.2)
--- NOTE | 2018-12-02 08:27 | PN ---
Teaching Attending Note Name of Resident: Ross Wasserman ATTENDING PHYSICIAN STATEMENT I saw and evaluated the patient. I reviewed the resident's note and discussed the case with the resident. I agree with the resident's findings and plan as documented. SUBJECTIVE: Patient is intubated in ICU, weaning trial OBJECTIVE: Vital Signs Temperature 97.4 F L 12/02/18 06:00 Pulse Rate 81 12/02/18 07:44 Respiratory Rate 14 12/02/18 07:44 Blood Pressure 102/69 12/02/18 07:44 O2 Sat by Pulse Oximetry (%) 97 12/01/18 21:24 GENERAL: The patient is intubated sedated in icu. HEAD: Normal with no signs of trauma. EYES: PERRL, extraocular movements intact, sclera anicteric, conjunctiva clear. ENT: Ears normal, positive for ET tube . NECK: Trachea midline, intubated . LUNGS: , decreased BS BL, positive for E-tube HEART: Regular rate and rhythm, S1, S2 without murmur, rub or gallop. ABDOMEN: Soft, nontender, nondistended, normoactive bowel sounds, no guarding, no rebound, no hepatosplenomegaly, no masses appreciated. EXTREMITIES: 2+ pulses, warm, well-perfused, no edema. NEUROLOGICAL: Cranial nerves II through XII grossly intact. PSYCH: Normal mood, normal affect. SKIN: Warm, dry, normal turgor, no rashes or lesions noted CBCD WBC 16.0 K/mm3 (4.0-10.0) H 12/02/18 06:26 RBC 4.81 M/mm3 (4.00-5.60) 12/02/18 06:26 Hgb 15.2 GM/dL (11.7-16.9) 12/02/18 06:26 Hct 43.9 % (35.4-49) 12/02/18 06:26 MCV 91.2 fl (80-96) 12/02/18 06:26 MCHC 34.5 g/dl (32.0-35.9) 12/02/18 06:26 RDW 12.9 % (11.9-15.9) 12/02/18 06:26 Plt Count 191 K/MM3 (134-434) 12/02/18 06:26 MPV 9.5 fl (7.5-11.1) 12/02/18 06:26 CMP Sodium 144 mmol/L (136-145) 12/02/18 06:26 Potassium 4.3 mmol/L (3.5-5.1) 12/02/18 06:26 Chloride 110 mmol/L (98-107) H 12/02/18 06:26 Carbon Dioxide 28 mmol/L (21-32) 12/02/18 06:26 Anion Gap 6 MMOL/L (8-16) L 12/02/18 06:26 BUN 14.6 mg/dL (7-18) 12/02/18 06:26 Creatinine 0.9 mg/dL (0.55-1.3) 12/02/18 06:26 Random Glucose 125 mg/dL (74-106) H 12/02/18 06:26 Calcium 9.3 mg/dL (8.5-10.1) 12/02/18 06:26 Total Bilirubin 0.6 mg/dL (0.2-1) 12/02/18 06:26 AST 22 U/L (15-37) 12/02/18 06:26 ALT 21 U/L (13-61) 12/02/18 06:26 Alkaline Phosphatase 75 U/L (45-117) 12/02/18 06:26 Total Protein 6.3 g/dl (6.4-8.2) L 12/02/18 06:26 Albumin 3.0 g/dl (3.4-5.0) L 12/02/18 06:26 CARDIAC ENZYMES Troponin I 0.03 ng/ml (0.00-0.05) 12/01/18 04:15 Current Medications Generic Name Dose Route Start Last Admin Trade Name Shana PRN Reason Stop Dose Admin Albuterol/Ipratropium 1 amp 12/01/18 08:00 12/01/18 21:33 Duoneb - NEB 1 amp RQID MARAL Administration Chlorhexidine Gluconate 1 applic 12/01/18 22:00 12/01/18 21:42 Hibiclens For Decolonization - TP 1 applic HS MARAL Administration Heparin Sodium (Porcine) 5,000 unit 12/01/18 02:00 12/02/18 01:02 Heparin - SQ 5,000 unit Q8H-IV MARAL Administration Propofol 1,000,000 mcg in 100 mls @ 9.798 mls/hr 12/01/18 00:45 12/02/18 07: 43 Diprivan - IVPB 25 mcg/kg/min TITR MARAL 12.247 mls/hr Titration Protocol 20 MCG/KG/MIN Levofloxacin 500 mg in 100 mls @ 100 mls/hr 12/02/18 10:00 Levaquin 500 Mg Premixed Ivpb - IVPB DAILY MARAL Protocol Lactated Ringer's 1,000 ml in 1,000 mls @ 100 mls/hr 12/01/18 08:00 12/02/18 05:17 Lactated Ringers Solution IV 12/02/18 17:59 100 mls/hr ASDIR MARAL Administration Clindamycin Phosphate 600 mg in 50 mls @ 100 mls/hr 12/01/18 10:00 12/02/18 01:02 Cleocin 600 Mg Premix Ivpb - IVPB 100 mls/hr Q8H-IV MARAL Administration Protocol Insulin Aspart 1 vial 12/01/18 07:00 12/02/18 06:11 Novolog Vial Sliding Scale - SQ 2 units TIDAC MARAL Administration Protocol Methylprednisolone Sodium Succinate 60 mg 11/30/18 23:30 12/02/18 05:45 Solu-Medrol - IVPB 60 mg Q6H MARAL Administration Mupirocin 1 applic 12/01/18 10:00 12/01/18 21:42 Bactroban Ointment (For Decolonization) - NS 12/06/18 09:59 1 applic BID MARAL Administration Valproate Sodium 500 mg 12/01/18 10:00 12/01/18 21:42 Depacon Injection - IVPB 500 mg BID MARAL Administration Home Medications Medication Instructions Recorded Divalproex [Depakote -] 500 mg PO BID 11/17/17 Fluoxetine HCl [Prozac -] 20 mg PO DAILY 11/17/17 RX: Benztropine Mesylate [Cogentin 1 mg PO BID #60 tablet 11/18/17 -] RX: Risperidone [Risperdal -] 1 mg PO BID #60 tablet 11/18/17 RX: Amlodipine Besylate [Norvasc -] 5 mg PO BID #30 tablet 12/16/17 RX: Cyclobenzaprine HCl 5 mg PO DAILY 11/28/18 Methadone (Detox) [Dolophine -] 0 mg PO ASDIR 11/30/18 12/01/18 07:30 Sputum - Endotrachea Suction/Ventilator Gram Stain - Final 12/01/18 07:30 Sputum - Endotrachea Suction/Ventilator Sputum Culture - Preliminary Yeast Like Organism 12/02/18 08:45 Urine For Antigen Detection Legionella Antigen - Final 12/02/18 08:45 Urine For Antigen Detection Streptococcus pneumoniae Antigen (M - Final 11/30/18 21:33 Urine - Urine Clean Catch Urine Culture - Final NO GROWTH OBTAINED 11/30/18 19:30 Blood - Peripheral Venous Blood Culture - Preliminary NO GROWTH OBTAINED AFTER 24 HOURS, INCUBATION TO CONTINUE FOR 4 DAYS. 11/30/18 19:30 Blood - Peripheral Venous Blood Culture - Preliminary NO GROWTH OBTAINED AFTER 24 HOURS, INCUBATION TO CONTINUE FOR 4 DAYS. ASSESSMENT AND PLAN: Patient is a 48 year old male with PMHx of IDDM, HTN, epilepsy, alcohol and heroin abuse, and anxiety PRESENTED TO ED. and was found to have bl Pneumonia presented from [facility] with AMS. # Acute hypoxic respiratory failure due to having bl pneumonia (CAP vs Aspiration) on clindamycin and levaquin continue, rest of w/u per ICU team # Sepsis due to PNA (CAP vs Aspiration) on clindamycin and levaquin , no growth x 24hr , urinary antigens for legionella and pneumcoccus negative #Mild tropinemia with EKG: NSR, no ST elevations of depressions #Polysubstance abuse on propafol #HTN stable #IDDM: SS with coverage #Epilepsy: on depacone iv DVT ppx:Heparin SQ Monitor in ICU
[2018-12-02] MEDS: ALBUTEROL SO4 2.5/IPRATROPIUM 0.5 INH SOL 3 ML VIAL.NEB. NEB SCH ×4 (08:49→19:34)
--- NOTE | 2018-12-02 10:04 | PN ---
Progress Note (short form) - Note Progress Note: just extubated wants to eat Vital Signs Period Temp Pulse Resp BP Sys/Stroud Pulse Ox Last 24 Hr 97.1 F-98.0 F 67-88 13-21 86-121/62-81 95-100 cor-rrr llungs decreased bs at bases abd soft,nt ext no edema echo ef 50-55% CBC, BMP 12/02/18 06:26 12/02/18 06:26 Microbiology 11/30/18 21:33 Urine - Urine Clean Catch Urine Culture - Final NO GROWTH OBTAINED 11/30/18 19:30 Blood - Peripheral Venous Blood Culture - Preliminary NO GROWTH OBTAINED AFTER 24 HOURS, INCUBATION TO CONTINUE FOR 4 DAYS. 11/30/18 19:30 Blood - Peripheral Venous Blood Culture - Preliminary NO GROWTH OBTAINED AFTER 24 HOURS, INCUBATION TO CONTINUE FOR 4 DAYS. 12/01/18 07:30 Sputum - Endotrachea Suction/Ventilator Gram Stain - Final cxray unchanged Current Medications Albuterol/Ipratropium (Duoneb -) 1 amp NEB RQID MARAL Last Admin: 12/02/18 08:49 Dose: 1 amp Chlorhexidine Gluconate (Hibiclens For Decolonization -) 1 applic TP HS MARAL Last Admin: 12/01/18 21:42 Dose: 1 applic Heparin Sodium (Porcine) (Heparin -) 5,000 unit SQ Q8H-IV MARAL Last Admin: 12/02/18 01:02 Dose: 5,000 unit Propofol (Diprivan -) 1,000,000 mcg in 100 mls @ 9.798 mls/hr IVPB TITR MARAL; Protocol Last Titration: 12/02/18 07:43 Dose: 25 mcg/kg/min, 12.247 mls/hr Levofloxacin (Levaquin 500 Mg Premixed Ivpb -) 500 mg in 100 mls @ 100 mls/hr IVPB DAILY MARAL; Protocol Lactated Ringer's (Lactated Ringers Solution) 1,000 ml in 1,000 mls @ 100 mls/ hr IV ASDIR MARAL Stop: 12/02/18 17:59 Last Admin: 12/02/18 05:17 Dose: 100 mls/hr Clindamycin Phosphate (Cleocin 600 Mg Premix Ivpb -) 600 mg in 50 mls @ 100 mls /hr IVPB Q8H-IV MARAL; Protocol Last Admin: 12/02/18 01:02 Dose: 100 mls/hr Insulin Aspart (Novolog Vial Sliding Scale -) 1 vial SQ TIDAC [facility]; Protocol Last Admin: 12/02/18 06:11 Dose: 2 units Methylprednisolone Sodium Succinate (Solu-Medrol -) 60 mg IVPB Q6H [facility] Last Admin: 12/02/18 05:45 Dose: 60 mg Mupirocin (Bactroban Ointment (For Decolonization) -) 1 applic NS BID [facility] Stop: 12/06/18 09:59 Last Admin: 12/01/18 21:42 Dose: 1 applic Valproate Sodium (Depacon Injection -) 500 mg IVPB BID [facility] Last Admin: 12/01/18 21:42 Dose: 500 mg a/p respiratory [id number] extubated bilateral pneumonia- CAP vs aspiration polysubstance use seizure disorder diabetes penicillin allergy suspect leukocytosis is due to steroids as he is clinically improved awaiting urinary antigens, f/u sputum culture continue clindamycin and levaquin (pen allergy) Problem List - Problems (1) Acute respiratory failure with hypoxemia Code(s): J96.01 - ACUTE RESPIRATORY FAILURE WITH HYPOXIA (2) Pneumonia Code(s): J18.9 - PNEUMONIA, UNSPECIFIED ORGANISM (3) Polysubstance abuse Code(s): F19.10 - OTHER PSYCHOACTIVE SUBSTANCE ABUSE, UNCOMPLICATED (4) Seizure Code(s): R56.9 - UNSPECIFIED CONVULSIONS (5) Diabetes mellitus Code(s): E11.9 - TYPE 2 DIABETES MELLITUS WITHOUT COMPLICATIONS Qualifiers: Diabetes mellitus type: type 2 Diabetes mellitus intermediate manager insulin use: unspecified intermediate manager insulin use status Diabetes mellitus complication status : with unspecified complications (6) Penicillin allergy Code(s): Z88.0 - ALLERGY STATUS TO PENICILLIN
[2018-12-02] MEDS: VALPROATE SODIUM 500 MG/5 ML VIAL IVPB SCH ×2 (10:49→21:11)
[2018-12-02] MEDS: MUPIROCIN 2% TOPICAL OINTMENT FOR DECOLONIZATION NS SCH ×2 (10:51→21:11)
[2018-12-02] MEDS ORDERED: METHADONE HCL 10 MG TABLET PO ONE (11:09)
--- NOTE | 2018-12-02 11:52 | EKG ---
Test Reason : Blood Pressure : / mmHG Vent. Rate : 090 BPM Atrial Rate : 090 BPM P-R Int : 110 ms QRS Dur : 100 ms QT Int : 342 ms P-R-T Axes : 049 061 051 degrees QTc Int : 418 ms SINUS RHYTHM WITH SHORT NH Confirmed by SHANITA OCONNELL MD ([id number]) on 12/02/2018 11:51:41 AM Referred By: JOSHUA KEYS Confirmed By:SHANITA OCONNELL MD
--- NOTE | 2018-12-02 11:53 | PN ---
Teaching Attending Note Name of Resident: Nando Campos ATTENDING PHYSICIAN STATEMENT I saw and evaluated the patient. I reviewed the resident's note and discussed the case with the resident. I agree with the resident's findings and plan as documented. SUBJECTIVE: Patient seen and examined in the ICU. Intubated, awake and agitated. AC Mode of vent. No pressors. Intake & Output 11/29/18 11/30/18 12/01/18 12/02/18 23:59 23:59 23:59 23:59 Intake Total 1889.4 1278 Balance 1889.4 1278 Weight 180 lb 151 lb 1.6 oz 151 lb 1.6 oz Last Vital Signs Temp Pulse Resp BP Pulse Ox 97.4 F L 81 14 116/69 98 12/02/18 06:00 12/02/18 10:00 12/02/18 09:00 12/02/18 09:00 12/02/18 10:00 Active Medications Albuterol/Ipratropium (Duoneb -) 1 amp NEB RQID MARAL Last Admin: 12/02/18 08:49 Dose: 1 amp Chlorhexidine Gluconate (Hibiclens For Decolonization -) 1 applic TP HS MARAL Last Admin: 12/01/18 21:42 Dose: 1 applic Heparin Sodium (Porcine) (Heparin -) 5,000 unit SQ Q8H-IV MARAL Last Admin: 12/02/18 10:49 Dose: 5,000 unit Propofol (Diprivan -) 1,000,000 mcg in 100 mls @ 9.798 mls/hr IVPB TITR MARAL; Protocol Last Titration: 12/02/18 07:43 Dose: 25 mcg/kg/min, 12.247 mls/hr Levofloxacin (Levaquin 500 Mg Premixed Ivpb -) 500 mg in 100 mls @ 100 mls/hr IVPB DAILY MARAL; Protocol Last Admin: 12/02/18 10:47 Dose: 100 mls/hr Lactated Ringer's (Lactated Ringers Solution) 1,000 ml in 1,000 mls @ 100 mls/ hr IV ASDIR MARAL Stop: 12/02/18 17:59 Last Admin: 12/02/18 10:52 Dose: Not Given Clindamycin Phosphate (Cleocin 600 Mg Premix Ivpb -) 600 mg in 50 mls @ 100 mls /hr IVPB Q8H-IV MARAL; Protocol Last Admin: 12/02/18 10:47 Dose: 100 mls/hr Insulin Aspart (Novolog Vial Sliding Scale -) 1 vial SQ TIDAC [facility]; Protocol Last Admin: 12/02/18 06:11 Dose: 2 units Methylprednisolone Sodium Succinate (Solu-Medrol -) 40 mg IVPUSH TID [facility] Mupirocin (Bactroban Ointment (For Decolonization) -) 1 applic NS BID [facility] Stop: 12/06/18 09:59 Last Admin: 12/02/18 10:51 Dose: 1 applic Valproate Sodium (Depacon Injection -) 500 mg IVPB BID [facility] Last Admin: 12/02/18 10:49 Dose: 500 mg GENERAL: Intubated, awake and agitated HEAD: Normocephalic, atraumatic. EYES: sclera anicteric, conjunctiva clear. EARS, NOSE, THROAT: Oropharynx clear without exudates. Moist mucous membranes. NECK: Supple without lymphadenopathy, or JVD LUNGS: Vented, scattered bilateral rhonchi, no wheezing HEART: Regular rate and rhythm, normal S1 and S2 without murmur, rub or gallop. ABDOMEN: Soft, nontender, not distended, normoactive bowel sounds, no guarding, no rebound, no masses. No hepatomegaly or splenomegaly. EXTREMITIES: 2+ radial, dorsalis pedis pulses bilaterally, warm, well-perfused. NEUROLOGICAL: sedated. SKIN: Warm, dry. Laboratory Results - last 24 hr 12/01/18 12/01/18 12/02/18 15:00 17:39 06:10 WBC RBC Hgb Hct MCV MCH MCHC RDW Plt Count MPV Absolute Neuts (auto) Neutrophils % Lymphocytes % Monocytes % Eosinophils % Basophils % Nucleated RBC % Sodium Potassium Chloride Carbon Dioxide Anion Gap BUN Creatinine Est GFR (CKD-EPI)AfAm Est GFR (CKD-EPI)NonAf POC Glucometer 137 163 Random Glucose Lactic Acid 2.8 H* Calcium Total Bilirubin AST ALT Alkaline Phosphatase Total Protein Albumin 12/02/18 12/02/18 12/02/18 06:26 06:26 06:26 WBC 16.0 H RBC 4.81 Hgb 15.2 Hct 43.9 MCV 91.2 MCH 31.5 MCHC 34.5 RDW 12.9 Plt Count 191 MPV 9.5 Absolute Neuts (auto) 14.5 H Neutrophils % 90.6 H Lymphocytes % 5.2 L Monocytes % 3.8 Eosinophils % 0.0 Basophils % 0.4 Nucleated RBC % 0 Sodium 144 Potassium 4.3 Chloride 110 H Carbon Dioxide 28 Anion Gap 6 L BUN 14.6 Creatinine 0.9 Est GFR (CKD-EPI)AfAm 115.83 Est GFR (CKD-EPI)NonAf 99.94 POC Glucometer Random Glucose 125 H Lactic Acid 2.2 H* Calcium 9.3 Total Bilirubin 0.6 AST 22 ALT 21 Alkaline Phosphatase 75 Total Protein 6.3 L Albumin 3.0 L ASSESSMENT/PLAN: Acute hypoxic and hypercapnic respiratory failure R/O Sepsis secondary to Aspiration Pneumonitis Heroin dependence Alcohol dependence Diabetes mellitus S/P unwitnessed fall Suspected seizure activity Sedation vacation Wean trials IVC normal of US evaluation: Conservative IVF management VTE prophylaxis Wean medrol Monitor for withdrawal ABX coverage Requires ICU monitoring Dr Finney Critical care time spent in reviewing chart, evaluating patient and formulating plan - 36 minutes.
--- NOTE | 2018-12-02 12:09 | CONSULT ---
Admitting History and Physical - Admission History of Present Illness: Acute hypoxic, hypercapnic respiratory failure Sepsis secondary to right lower lobe pneumonia Heroin dependence Alcohol dependence Diabetes mellitus S/P unwitnessed fall Suspected seizure activity Reqired intubation 11/30. Extubated today. This is my first consult with this pt. History Source: Medical Record Limitations to Obtaining History: Clinical Condition - Smoking History Smoking history: Unknown if ever smoked Have you smoked in the past 12 months: No Aproximately how many cigarettes per day: 40 - Alcohol/Substance Use Hx Alcohol Use: No History - Admission Reason For Visit: PNEUMONIA - Diagnostics X-ray: Report Reviewed CT Scan: Report Reviewed - General Mental Status: Awake and Alert, Forgetful, Vague, Confused (not oriented to hospital. Extubated today.), Flat Affect Ability to Follow Directions: Fair (slow to respond) Head/Neck Control: Fair - Hearing Hearing: Functional Speech Evaluation - Communication Primary Language: LITHUANIAN Communication: Yes: Simple Responses Oral Expression Ability: Yes: Moderate Impairment - Speech Production Intelligibility: Yes: Moderately Impaired - Speech Characteristics Voice Loudness: Moderately Soft/Quiet Voice Phonatory-based Quality: Yes: Weak, Dysphonia Speech Pattern: Impaired Speech Clarity: < 50% Nasal Resonance: Hypernasal Voice, Other Observations: Yes: Progressively Weak Voice - Language/Auditory Comprehension Follows: Yes: 1 Stage Simple Commands - Swallow Evaluation/Bedside Assessment Current Nutritional Intake: NPO Dentition: Yes: Adequate Facial Symmetry at Rest: Symmetrical Facial Symmetry on Retraction: Symmetrical Against Resistance Opening: Weak Against Resistance Closing: Weak Pucker Lips: Normal Lingual Movement: Symmetric (twitching at tongue tip) Lingual Movement Strgth Against Opposition: Reduced Laryngeal Elevation: Impaired Laryngeal Movement: Reduced Excursion, Labored,delay initiation, Reduced Velocity Rate of Intake: Slow/Holding Bolus Size: Small Oral Prep Time: WFL Coughing/Throat Clear: Yes (1/4 tsp applesauce with responsive cough, hypernality noted) Recommendations - Speech Evaluation, Impression/Plan Impression: Weak swallow. tiny amount of applesauce resulted in cough response with weak, hypernasal cough, c/w aspiration. - Dysphagia Impressions/Plan Swallowing Skills: Impaired Dysphagia Impressions: Ongoing Evaluation, Suspect Aspiration *Silent aspiration: cannot be R/O at bedside Recommendations: Modified Barium Swallow (as indicated next week if difficulty persists), Other (screen swallowing as voice, mental status improves.) - Recommendations Diet Consistency: NPO Liquids: NPO
[2018-12-02] MEDS ORDERED: LORazepam 2 MG/ML SDV VIAL IVPUSH PRN (13:36)
[2018-12-02] MEDS: methylPREDNISolone NA SUCC 40 MG/1 ML VIAL IVPUSH SCH ×2 (14:58→21:11)
--- NOTE | 2018-12-02 17:11 | PN ---
Physical Exam: SUBJECTIVE: Patient seen and examined at bedside, pt improving. OBJECTIVE: Vital Signs Period Temp Pulse Resp BP Sys/Stroud Pulse Ox Last 24 Hr 97.1 F-97.8 F 67-107 13-20 96-138/66-82 95-100 GENERAL: The patient is awake, extubated. HEAD: Normal with no signs of trauma. NECK: supple. LUNGS: Breath sounds equal, crackles b/l HEART: Regular rate and rhythm, S1, S2 without murmur, rub or gallop. ABDOMEN: Soft, nontender, nondistended, normoactive bowel sounds, no guarding, no rebound. EXTREMITIES: 2+ pulses, warm, well-perfused, no edema. NEUROLOGICAL: Cranial nerves II through XII grossly intact. Normal speech, gait not observed. PSYCH: Normal mood, normal affect. SKIN: Warm, dry, no rashes or lesions noted Laboratory Results - last 24 hr 12/01/18 12/02/18 12/02/18 17:39 06:10 06:26 WBC 16.0 H RBC 4.81 Hgb 15.2 Hct 43.9 MCV 91.2 MCH 31.5 MCHC 34.5 RDW 12.9 Plt Count 191 MPV 9.5 Absolute Neuts (auto) 14.5 H Neutrophils % 90.6 H Lymphocytes % 5.2 L Monocytes % 3.8 Eosinophils % 0.0 Basophils % 0.4 Nucleated RBC % 0 Sodium Potassium Chloride Carbon Dioxide Anion Gap BUN Creatinine Est GFR (CKD-EPI)AfAm Est GFR (CKD-EPI)NonAf POC Glucometer 137 163 Random Glucose Lactic Acid Calcium Total Bilirubin AST ALT Alkaline Phosphatase Total Protein Albumin 12/02/18 12/02/18 12/02/18 06:26 06:26 12:26 WBC RBC Hgb Hct MCV MCH MCHC RDW Plt Count MPV Absolute Neuts (auto) Neutrophils % Lymphocytes % Monocytes % Eosinophils % Basophils % Nucleated RBC % Sodium 144 Potassium 4.3 Chloride 110 H Carbon Dioxide 28 Anion Gap 6 L BUN 14.6 Creatinine 0.9 Est GFR (CKD-EPI)AfAm 115.83 Est GFR (CKD-EPI)NonAf 99.94 POC Glucometer 105 Random Glucose 125 H Lactic Acid 2.2 H* Calcium 9.3 Total Bilirubin 0.6 AST 22 ALT 21 Alkaline Phosphatase 75 Total Protein 6.3 L Albumin 3.0 L 12/02/18 12/02/18 15:00 17:00 WBC RBC Hgb Hct MCV MCH MCHC RDW Plt Count MPV Absolute Neuts (auto) Neutrophils % Lymphocytes % Monocytes % Eosinophils % Basophils % Nucleated RBC % Sodium Potassium Chloride Carbon Dioxide Anion Gap BUN Creatinine Est GFR (CKD-EPI)AfAm Est GFR (CKD-EPI)NonAf POC Glucometer 114 Random Glucose Lactic Acid 2.1 H Calcium Total Bilirubin AST ALT Alkaline Phosphatase Total Protein Albumin Active Medications Generic Name Dose Route Start Last Admin Trade Name Freq PRN Reason Stop Dose Admin Albuterol/Ipratropium 1 amp 12/01/18 08:00 12/02/18 15:43 Duoneb - NEB 1 amp RQID MARAL Administration Chlorhexidine Gluconate 1 applic 12/01/18 22:00 12/01/18 21:42 Hibiclens For Decolonization - TP 1 applic HS MARAL Administration Heparin Sodium (Porcine) 5,000 unit 12/01/18 02:00 12/02/18 10:49 Heparin - SQ 5,000 unit Q8H-IV MARAL Administration Levofloxacin 500 mg in 100 mls @ 100 mls/hr 12/02/18 10:00 12/02/18 10:47 Levaquin 500 Mg Premixed Ivpb - IVPB 100 mls/hr DAILY MARAL Administration Protocol Lactated Ringer's 1,000 ml in 1,000 mls @ 100 mls/hr 12/01/18 08:00 12/02/18 10:52 Lactated Ringers Solution IV 12/02/18 17:59 Not Given ASDIR MARAL Clindamycin Phosphate 600 mg in 50 mls @ 100 mls/hr 12/01/18 10:00 12/02/18 10:47 Cleocin 600 Mg Premix Ivpb - IVPB 100 mls/hr Q8H-IV MARAL Administration Protocol Insulin Aspart 1 vial 12/01/18 07:00 12/02/18 17:02 Novolog Vial Sliding Scale - SQ Not Given TIDAC [facility] Protocol Lorazepam 1 mg 12/02/18 13:36 Ativan Injection - IVPUSH Q6H PRN AGITATION Methylprednisolone Sodium Succinate 40 mg 12/02/18 14:00 12/02/18 14:58 Solu-Medrol - IVPUSH 40 mg TID MARAL Administration Mupirocin 1 applic 12/01/18 10:00 12/02/18 10:51 Bactroban Ointment (For Decolonization) - NS 12/06/18 09:59 1 applic BID MARAL Administration Valproate Sodium 500 mg 12/01/18 10:00 12/02/18 10:49 Depacon Injection - IVPB 500 mg BID MARAL Administration ASSESSMENT/PLAN: Patient is a 48 year old male with PMH of IDDM, HTN, epilepsy, alcohol and heroin abuse, and anxiety who was BIBEMS from [facility] with AMS. #Sepsis 2/2 PNA with acute hypercapnic respiratory failure - CXR showing persisent congestion and infiltrates. - Cont solumedrol 60mg Q6H -sedation vacation Pending blood, urine, sputum cx rpting CXR in AM Lactic acid 2.1, Cont to trend Hydrate with IV LR 100mL/hr ID recommends continuing lev, clinda. #Mild tropinemia - Could be 2/2 sepsis - Trop neg x2 yesterday. Today, trop: 0.04. F/u repeat - EKG: NSR, no ST elevations of depressions - Cont cardiac monitoring #Substance abuse - Pt is off sedation, started on methadone 20 PO at this time #HTN contuining to hold BP meds for now as pt is septic #IDDM SSI TIDAC #Epilepsy Pt intubated, continuing depakote po 500mg BID. #FEN Cont IV LR @ 100ml/hr Monitor lytes and replete as needed NPO for now given AMS and intubation #DVT ppx Heparin SQ #Dispo Monitor in ICU Visit type - Emergency Visit Emergency Visit: Yes ED Registration Date: 11/30/18 Care time: The patient presented to the Emergency Department on the above date and was hospitalized for further evaluation of their emergent condition. - New Patient This patient is new to me today: No - Critical Care Critical Care patient: Yes Total Critical Care Time (in minutes): 35 Critical Care Statement: The care of this patient involved high complexity decision making to prevent further life threatening deterioration of the patient 's condition and/or to evaluate & treat vital organ system(s) failure or risk of failure. - Discharge Referral Referred to [facility] Med P.C.: No ATTENDING PHYSICIAN STATEMENT I saw and evaluated the patient. I reviewed the resident's note and discussed the case with the resident. I agree with the resident's findings and plan as documented. SUBJECTIVE: OBJECTIVE: ASSESSMENT AND PLAN:
[2018-12-02] MEDS: CHLORHEXIDINE GLUCONATE 4% CLEANSER FOR DECOLONIZATION TP SCH (21:12)
[2018-12-03] MEDS: CLINDAMYCIN 600MG PREMIX IVPB 600 MG/50 ML BAG IVPB SCH ×3 (01:01→18:12)
[2018-12-03] MEDS: HEPARIN NA (PORCINE) 5,000 UNITS/ML 1ML VIAL SQ SCH ×3 (01:01→18:13)
[2018-12-03] MEDS: methylPREDNISolone NA SUCC 40 MG/1 ML VIAL IVPUSH SCH ×3 (05:19→21:06)
[2018-12-03] MEDS: INSULIN SLIDING SCALE (NOVOLOG) 1 VIAL SQ SCH ×3 (06:49→18:36)
--- NOTE | 2018-12-03 07:01 | PN ---
Physical Exam: SUBJECTIVE: Patient seen and examined at bedside this morning. He endorses that he is hungry, and is refusing any blood draw today. Patient denies any shortness of breath, chest pain, abdominal pain, nausea, vomiting. OBJECTIVE: Vital Signs Period Temp Pulse Resp BP Sys/Stroud Pulse Ox Last 24 Hr 98.1 F-98.6 F 61-112 13-21 102-155/67-92 95-100 GENERAL: Patient is awake, oriented to person, time. No apparent distress. HEAD: Normocephalic, atraumatic. EYES: PERRL, sclera anicteric, conjunctiva clear. EARS, NOSE, THROAT: Oropharynx moist, no exudates. NECK: Supple without lymphadenopathy, or JVD. Negative stridor. LUNGS: Breath sounds equal, with diffuse rhonchi bilaterally HEART: Regular rate and rhythm, normal S1 and S2 without murmur, rub or gallop. ABDOMEN: Soft, nontender, not distended, normoactive bowel sounds, no guarding, no rebound, no masses. No hepatomegaly or splenomegaly. EXTREMITIES: 2+ radial, dorsalis pedis pulses bilaterally, warm, well-perfused. NEUROLOGICAL: Patient responds to commands and moves all 4 extremities. No gross focal deficits. SKIN: Warm, dry. Laboratory Results - last 24 hr 12/02/18 12/02/18 12/02/18 06:26 06:26 06:26 WBC 16.0 H RBC 4.81 Hgb 15.2 Hct 43.9 MCV 91.2 MCH 31.5 MCHC 34.5 RDW 12.9 Plt Count 191 MPV 9.5 Absolute Neuts (auto) 14.5 H Neutrophils % 90.6 H Lymphocytes % 5.2 L Monocytes % 3.8 Eosinophils % 0.0 Basophils % 0.4 Nucleated RBC % 0 Sodium 144 Potassium 4.3 Chloride 110 H Carbon Dioxide 28 Anion Gap 6 L BUN 14.6 Creatinine 0.9 Est GFR (CKD-EPI)AfAm 115.83 Est GFR (CKD-EPI)NonAf 99.94 POC Glucometer Random Glucose 125 H Lactic Acid 2.2 H* Calcium 9.3 Total Bilirubin 0.6 AST 22 ALT 21 Alkaline Phosphatase 75 Total Protein 6.3 L Albumin 3.0 L 12/02/18 12/02/18 12/02/18 12:26 15:00 17:00 WBC RBC Hgb Hct MCV MCH MCHC RDW Plt Count MPV Absolute Neuts (auto) Neutrophils % Lymphocytes % Monocytes % Eosinophils % Basophils % Nucleated RBC % Sodium Potassium Chloride Carbon Dioxide Anion Gap BUN Creatinine Est GFR (CKD-EPI)AfAm Est GFR (CKD-EPI)NonAf POC Glucometer 105 114 Random Glucose Lactic Acid 2.1 H Calcium Total Bilirubin AST ALT Alkaline Phosphatase Total Protein Albumin 12/03/18 06:45 WBC RBC Hgb Hct MCV MCH MCHC RDW Plt Count MPV Absolute Neuts (auto) Neutrophils % Lymphocytes % Monocytes % Eosinophils % Basophils % Nucleated RBC % Sodium Potassium Chloride Carbon Dioxide Anion Gap BUN Creatinine Est GFR (CKD-EPI)AfAm Est GFR (CKD-EPI)NonAf POC Glucometer 91 Random Glucose Lactic Acid Calcium Total Bilirubin AST ALT Alkaline Phosphatase Total Protein Albumin Active Medications Generic Name Dose Route Start Last Admin Trade Name Freq PRN Reason Stop Dose Admin Albuterol/Ipratropium 1 amp 12/01/18 08:00 12/02/18 19:34 Duoneb - NEB 1 amp RQID MARAL Administration Chlorhexidine Gluconate 1 applic 12/01/18 22:00 12/02/18 21:12 Hibiclens For Decolonization - TP 1 applic HS MARAL Administration Heparin Sodium (Porcine) 5,000 unit 12/01/18 02:00 12/03/18 01:01 Heparin - SQ 5,000 unit Q8H-IV MARAL Administration Levofloxacin 500 mg in 100 mls @ 100 mls/hr 12/02/18 10:00 12/02/18 10:47 Levaquin 500 Mg Premixed Ivpb - IVPB 100 mls/hr DAILY MARAL Administration Protocol Clindamycin Phosphate 600 mg in 50 mls @ 100 mls/hr 12/01/18 10:00 12/03/18 01:01 Cleocin 600 Mg Premix Ivpb - IVPB 100 mls/hr Q8H-IV MARAL Administration Protocol Insulin Aspart 1 vial 12/01/18 07:00 12/03/18 06:49 Novolog Vial Sliding Scale - SQ Not Given TIDAC MARAL Protocol Lorazepam 1 mg 12/02/18 13:36 Ativan Injection - IVPUSH Q6H PRN AGITATION Methylprednisolone Sodium Succinate 40 mg 12/02/18 14:00 12/03/18 05:19 Solu-Medrol - IVPUSH 40 mg TID MARAL Administration Mupirocin 1 applic 12/01/18 10:00 12/02/18 21:11 Bactroban Ointment (For Decolonization) - NS 12/06/18 09:59 1 applic BID MARAL Administration Valproate Sodium 500 mg 12/01/18 10:00 12/02/18 21:11 Depacon Injection - IVPB 500 mg BID MARAL Administration ASSESSMENT/PLAN: Acute hypoxic, hypercapnic respiratory failure Sepsis secondary to right lower lobe pneumonia Heroin dependence Alcohol dependence Diabetes mellitus S/P unwitnessed fall Suspected seizure activity Neurologic -Patient weaned off sedation. -CT head reveals no calvarium fracture, no intracranial bleeding. -Depacote 500mg IV BID -Monitor for signs of withdrawal -Ativan 1mg IV Q6H for agitation, withdrawal symptoms -Reinstate Methadone taper at 20mg PO -Addiction medicine consult (Dr. Frazier) appreciated -Fall precautions. Pulmonary -Patient extubated 12/02/2018. Saturating well on room air. -Chest radiograph reveals bilateral infiltrates- concerning for aspiration pneumonia. -Solu-medrol 40mg IV Q8 hours. Continue to wean Cardiac -Troponin 0.04 -> 0.03 -ECG reveals normal sinus rhythm at 95BPM, without ischemic changes. -Cardiac monitoring while in ICU Gastrointestinal -Patient tolerating bedside swallow evaluation. Will initiate full liquid diet. Infectious disease -Right lower lobe pneumonia ?aspiration -Clindamycin 600mg IV Q8 hours -Levofloxacin 750mg IV daily -Lactic acid peaked at 3.5 -IV fluid hydration; normal saline at 100mL/ hour -ID consult (Dr. Warner) appreciated. Endocrine -Insulin sliding scale ACHS -Fingerstick blood glucose monitoring. FEN -Fluids: IV fluids not indicated -Electrolytes: Follow CMP, replete as necesary -Nutriton: Full liquid diet Prophylaxis -Heparin 5000u subq TID Disposition: Patient is medically stable for transfer to medical- surgical floor. Visit type - Emergency Visit Emergency Visit: Yes ED Registration Date: 11/30/18 Care time: The patient presented to the Emergency Department on the above date and was hospitalized for further evaluation of their emergent condition. - New Patient This patient is new to me today: No - Critical Care Critical Care patient: Yes Total Critical Care Time (in minutes): 35 Critical Care Statement: The care of this patient involved high complexity decision making to prevent further life threatening deterioration of the patient 's condition and/or to evaluate & treat vital organ system(s) failure or risk of failure. - Discharge Referral Referred to [facility] Med P.C.: No ATTENDING PHYSICIAN STATEMENT I saw and evaluated the patient. I reviewed the resident's note and discussed the case with the resident. I agree with the resident's findings and plan as documented. SUBJECTIVE: OBJECTIVE: ASSESSMENT AND PLAN:
[2018-12-03] MEDS: ALBUTEROL SO4 2.5/IPRATROPIUM 0.5 INH SOL 3 ML VIAL.NEB. NEB SCH ×4 (08:30→19:28)
[2018-12-03] MEDS: VALPROATE SODIUM 500 MG/5 ML VIAL IVPB SCH ×2 (09:13→21:06)
[2018-12-03] MEDS: MUPIROCIN 2% TOPICAL OINTMENT FOR DECOLONIZATION NS SCH ×2 (09:14→21:07)
--- NOTE | 2018-12-03 10:00 | PN ---
Teaching Attending Note Name of Resident: Nando Campos ATTENDING PHYSICIAN STATEMENT I saw and evaluated the patient. I reviewed the resident's note and discussed the case with the resident. I agree with the resident's findings and plan as documented. SUBJECTIVE: Patient seen and examined in the ICU. Extubated, awake, but mildly confused. Able to follow commands. No pressors. Intake & Output 11/30/18 12/01/18 12/02/18 12/03/18 23:59 23:59 23:59 23:59 Intake Total 1889.4 2988 700 Output Total 1100 400 Balance 1889.4 1888 300 Weight 180 lb 151 lb 1.6 oz 151 lb 158 lb 12.8 oz Last Vital Signs Temp Pulse Resp BP Pulse Ox 98.1 F 68 15 150/83 97 12/03/18 06:00 12/03/18 08:00 12/03/18 08:35 12/03/18 08:00 12/03/18 08:35 Active Medications Albuterol/Ipratropium (Duoneb -) 1 amp NEB RQID MARAL Last Admin: 12/03/18 08:30 Dose: 1 amp Chlorhexidine Gluconate (Hibiclens For Decolonization -) 1 applic TP HS MARAL Last Admin: 12/02/18 21:12 Dose: 1 applic Heparin Sodium (Porcine) (Heparin -) 5,000 unit SQ Q8H-IV MARAL Last Admin: 12/03/18 09:13 Dose: 5,000 unit Levofloxacin (Levaquin 500 Mg Premixed Ivpb -) 500 mg in 100 mls @ 100 mls/hr IVPB DAILY MARAL; Protocol Last Admin: 12/03/18 09:12 Dose: 100 mls/hr Clindamycin Phosphate (Cleocin 600 Mg Premix Ivpb -) 600 mg in 50 mls @ 100 mls /hr IVPB Q8H-IV MARAL; Protocol Last Admin: 12/03/18 09:12 Dose: 100 mls/hr Insulin Aspart (Novolog Vial Sliding Scale -) 1 vial SQ TIDAC MARAL; Protocol Last Admin: 12/03/18 06:49 Dose: Not Given Lorazepam (Ativan Injection -) 1 mg IVPUSH Q6H PRN PRN Reason: AGITATION Methylprednisolone Sodium Succinate (Solu-Medrol -) 40 mg IVPUSH TID MARAL Last Admin: 12/03/18 05:19 Dose: 40 mg Mupirocin (Bactroban Ointment (For Decolonization) -) 1 applic NS BID [facility] Stop: 12/06/18 09:59 Last Admin: 12/03/18 09:14 Dose: 1 applic Valproate Sodium (Depacon Injection -) 500 mg IVPB BID [facility] Last Admin: 12/03/18 09:13 Dose: 500 mg GENERAL: Extubated, awake but mildly confused HEAD: Normocephalic, atraumatic. EYES: sclera anicteric, conjunctiva clear. EARS, NOSE, THROAT: Oropharynx clear without exudates. Moist mucous membranes. NECK: Supple without lymphadenopathy, or JVD LUNGS: scattered bilateral rhonchi, no wheezing HEART: Regular rate and rhythm, normal S1 and S2 without murmur, rub or gallop. ABDOMEN: Soft, nontender, not distended, normoactive bowel sounds, no guarding, no rebound, no masses. No hepatomegaly or splenomegaly. EXTREMITIES: 2+ radial, dorsalis pedis pulses bilaterally, warm, well-perfused. NEUROLOGICAL: non-focal, confused SKIN: Warm, dry. Laboratory Results - last 24 hr 12/02/18 12/02/18 12/02/18 12:26 15:00 17:00 POC Glucometer 105 114 Lactic Acid 2.1 H 12/03/18 06:45 POC Glucometer 91 Lactic Acid ASSESSMENT/PLAN: Acute hypoxic and hypercapnic respiratory failure R/O Sepsis secondary to Aspiration Pneumonitis Heroin dependence Alcohol dependence Diabetes mellitus S/P unwitnessed fall Suspected seizure activity VTE prophylaxis Wean medrol Monitor for withdrawal ABX coverage Floor Dr Finney
[2018-12-03] MEDS ORDERED: METHADONE HCL 10 MG TABLET PO ONE (11:30)
--- NOTE | 2018-12-03 13:37 | CONSULT ---
Consult Detox [facility] Reason for Current Admission/Consult: for fllow up care for opiiate dependence and alcohol depndence Referred by:: DR.JOSIP KEYS - History History of Present Illness: This 48 years old male with history of opiate and alcohol dependence extensive history,also history of methadone maintenance, hypertension,type 2 dm,multiple admissions in detox seen in er at [facility] for chest pain,sob on 11/28/18 admitted at [facility] 11/29/09 to on methadone and librium regimen transferred to er at [facility] on 11/30/18 after rapid responded,admitted to ICU at [facility] for pneumonia,respiratory failure,requiring intubation, on mechanical ventilatory support from 11/30/18 to 10/03/18,able to wean off today has nausea ,vomiting,pain in the body,extremity admitted using heroin 10 bags per day,inhale,started at age of 15,last use 11/27 alcohol 2 pints of vodga/day,started at age of 15,last used 11/27/18 crack 100$/day,started at age of 15,last use 12/03/18 unable to verify methadone maintenance history of schizoaffective disorder non compliance issue - History Source History Provided By: Patient, Medical Record Limitations to Obtaining History: No Limitations - Alcohol/Substance Use Hx Alcohol Use: No - Current Drug/Alcohol Use Heroin Route: Inhalation Frequency: Daily Amount used: 10 bags Age of first use: 15 Date of Last Use: 11/27/18 Alcohol Route: Oral Frequency: Daily Amount used: 2pints of vodka Age of first use: 15 Date of Last Use: 11/27/18 Crack Route: Smoking Frequency: Daily Amount used: 100$ Age of first use: 15 Date of Last Use: 11/23/18 - Past Medical History Cardio/Vascular: Yes: HTN Pulmonary: Yes: Other Psych: Yes: Schizophrenia Endocrine: Yes: Diabetes Mellitus CIWA Score - CIWA Score Nausea/Vomitin Muscle Tremors: 1-None Visible, but [place] Anxiety: 1-Mildly Anxious Agitation: 1-Slight > Activity Paroxysmal Sweats: No Perspiration Orientation: 0-Oriented Tacttile Disturbances: 0-None Auditory Disturbances: 0-None Visual Disturbances: 0-None Headache: 1-Very Mild CIWA-Ar Total Score: 6 COWS - Scale Resting Pulse: 1= TN 81-100 Sweatin= Chills/Flushing Restless Observation: 1= Difficult to Sit Still Pupil Size: 1= Pupils >than Normal Bone or Joint Aches: 1= Mild Discomfort Runny Nose/ Eye Tearin= Nasal Congestion GI Upset > 30mins: 1= Stomach Cramp Tremor Observation: 1= Tremor [place], Not Seen Yawning Observation: 0= None Anxiety or Irritability: 1=Feels Anxious/Irritable Goose Flesh Skin: 0=Smooth Skin COWS Score: 9 Assessment Plan - Plan Plan: this 48 years old male with extensive history of opiate dependence and alcohol and cocaine dependence with multiple medical problem, pneumomia,type 2 dm,schizoaffective disorder,on mechanical ventilatory and extubation today patient receive methadone 20 mgs today will continue methadone detox with methadone 15 mgs on 12/04/18,methadone 10 mgs on 12/05/18,methadone 5 mgs po on 12/06/18 close monitoring continue iv antibiotics,close monitoring for respiratory problem,once patient is medically stable,may be a candidate for rehab
[2018-12-03] MEDS ORDERED: ONDANSETRON 4 MG/2 ML VIAL IVPUSH ONE (18:30)
[2018-12-03] MEDS ORDERED: ONDANSETRON 4 MG/2 ML VIAL ONE (18:31)
--- NOTE | 2018-12-03 19:14 | PN ---
Progress Note (short form) - Note Progress Note: Patient is extubated in ICU on VM , comfortable. Vital Signs Temperature 98.4 F 12/03/18 14:00 Pulse Rate 69 12/03/18 14:00 Respiratory Rate 14 12/03/18 14:00 Blood Pressure 135/84 12/03/18 14:00 O2 Sat by Pulse Oximetry (%) 97 12/03/18 08:35 GENERAL: The patient is extubated , in NAD HEAD: Normal with no signs of trauma. EYES: PERRL, extraocular movements intact, sclera anicteric, conjunctiva clear. ENT: Ears normal, NECK: Trachea midline, supple LUNGS: , decreased BS BL, on VM, No crackles HEART: Regular rate and rhythm, S1, S2 without murmur, rub or gallop. ABDOMEN: Soft, nontender, nondistended, normoactive bowel sounds, no guarding, no rebound, no hepatosplenomegaly, no masses appreciated. EXTREMITIES: 2+ pulses, warm, well-perfused, no edema. NEUROLOGICAL: Cranial nerves II through XII grossly intact. PSYCH: Normal mood, normal affect. SKIN: Warm, dry, normal turgor, no rashes or lesions noted CBCD WBC 16.0 K/mm3 (4.0-10.0) H 12/02/18 06:26 RBC 4.81 M/mm3 (4.00-5.60) 12/02/18 06:26 Hgb 15.2 GM/dL (11.7-16.9) 12/02/18 06:26 Hct 43.9 % (35.4-49) 12/02/18 06:26 MCV 91.2 fl (80-96) 12/02/18 06:26 MCHC 34.5 g/dl (32.0-35.9) 12/02/18 06:26 RDW 12.9 % (11.9-15.9) 12/02/18 06:26 Plt Count 191 K/MM3 (134-434) 12/02/18 06:26 MPV 9.5 fl (7.5-11.1) 12/02/18 06:26 CMP Sodium 144 mmol/L (136-145) 12/02/18 06:26 Potassium 4.3 mmol/L (3.5-5.1) 12/02/18 06:26 Chloride 110 mmol/L (98-107) H 12/02/18 06:26 Carbon Dioxide 28 mmol/L (21-32) 12/02/18 06:26 Anion Gap 6 MMOL/L (8-16) L 12/02/18 06:26 BUN 14.6 mg/dL (7-18) 12/02/18 06:26 Creatinine 0.9 mg/dL (0.55-1.3) 12/02/18 06:26 Random Glucose 125 mg/dL (74-106) H 12/02/18 06:26 Calcium 9.3 mg/dL (8.5-10.1) 12/02/18 06:26 Total Bilirubin 0.6 mg/dL (0.2-1) 12/02/18 06:26 AST 22 U/L (15-37) 12/02/18 06:26 ALT 21 U/L (13-61) 12/02/18 06:26 Alkaline Phosphatase 75 U/L (45-117) 12/02/18 06:26 Total Protein 6.3 g/dl (6.4-8.2) L 12/02/18 06:26 Albumin 3.0 g/dl (3.4-5.0) L 12/02/18 06:26 CARDIAC ENZYMES Troponin I 0.03 ng/ml (0.00-0.05) 12/01/18 04:15 Current Medications Generic Name Dose Route Start Last Admin Trade Name Freq PRN Reason Stop Dose Admin Albuterol/Ipratropium 1 amp 12/01/18 08:00 12/03/18 16:26 Duoneb - NEB 1 amp RQID [facility] Administration Chlorhexidine Gluconate 1 applic 12/01/18 22:00 12/02/18 21:12 Hibiclens For Decolonization - TP 1 applic HS [facility] Administration Heparin Sodium (Porcine) 5,000 unit 12/01/18 02:00 12/03/18 18:13 Heparin - SQ 5,000 unit Q8H-IV [facility] Administration Levofloxacin 500 mg in 100 mls @ 100 mls/hr 12/02/18 10:00 12/03/18 09:12 Levaquin 500 Mg Premixed Ivpb - IVPB 100 mls/hr DAILY [facility] Administration Protocol Clindamycin Phosphate 600 mg in 50 mls @ 100 mls/hr 12/01/18 10:00 12/03/18 18:12 Cleocin 600 Mg Premix Ivpb - IVPB 100 mls/hr Q8H-IV [facility] Administration Protocol Insulin Aspart 1 vial 12/01/18 07:00 12/03/18 18:36 Novolog Vial Sliding Scale - SQ Not Given TIDAC [facility] Protocol Lorazepam 1 mg 12/02/18 13:36 Ativan Injection - IVPUSH Q6H PRN AGITATION Methadone HCl 15 mg 12/04/18 10:00 Dolophine - PO 12/04/18 10:01 ONCE ONE Methadone HCl 10 mg 12/05/18 10:00 Dolophine - PO 12/05/18 10:01 ONCE ONE Methadone HCl 5 mg 12/06/18 06:00 Dolophine - PO 12/06/18 06:01 ONCE ONE Methylprednisolone Sodium Succinate 40 mg 12/02/18 14:00 12/03/18 14:12 Solu-Medrol - IVPUSH 40 mg TID [facility] Administration Mupirocin 1 applic 12/01/18 10:00 12/03/18 09:14 Bactroban Ointment (For Decolonization) - NS 12/06/18 09:59 1 applic BID [facility] Administration Valproate Sodium 500 mg 12/01/18 10:00 12/03/18 09:13 Depacon Injection - IVPB 500 mg BID [facility] Administration Home Medications Medication Instructions Recorded Divalproex [Depakote -] 500 mg PO BID 11/17/17 Fluoxetine HCl [Prozac -] 20 mg PO DAILY 11/17/17 Benztropine Mesylate [Cogentin -] 1 mg PO BID #60 tablet 11/18/17 Risperidone [Risperdal -] 1 mg PO BID #60 tablet 11/18/17 Amlodipine Besylate [Norvasc -] 5 mg PO BID #30 tablet 12/16/17 Cyclobenzaprine HCl 5 mg PO DAILY 11/28/18 Methadone (Detox) [Dolophine -] 0 mg PO ASDIR 11/30/18 Microbiology 12/01/18 07:30 Sputum - Endotrachea Suction/Ventilator Gram Stain - Final 12/01/18 07:30 Sputum - Endotrachea Suction/Ventilator Sputum Culture - Final Yeast Like Organism 11/30/18 19:30 Blood - Peripheral Venous Blood Culture - Preliminary NO GROWTH OBTAINED AFTER 48 HOURS, INCUBATION TO CONTINUE FOR 3 DAYS. 11/30/18 19:30 Blood - Peripheral Venous Blood Culture - Preliminary NO GROWTH OBTAINED AFTER 48 HOURS, INCUBATION TO CONTINUE FOR 3 DAYS. 12/02/18 08:45 Urine For Antigen Detection Legionella Antigen - Final 12/02/18 08:45 Urine For Antigen Detection Streptococcus pneumoniae Antigen (M - Final 11/30/18 21:33 Urine - Urine Clean Catch Urine Culture - Final NO GROWTH OBTAINED ASSESSMENT AND PLAN: Patient is a 48 year old male with PMHx of IDDM, HTN, epilepsy, alcohol and heroin abuse, and anxiety PRESENTED TO ED. and was found to have bl Pneumonia presented from [facility] with AMS. # Acute hypoxic respiratory failure due to having bl pneumonia (CAP vs Aspiration) on clindamycin and levaquin continue,s/p extubation rest of w/u per ICU team # Sepsis due to PNA (CAP vs Aspiration) on clindamycin and levaquin , no growth x 24hr , urinary antigens for legionella and pneumcoccus negative #Mild tropinemia with EKG: NSR, no ST elevations of depressions #Polysubstance abuse on propafol #HTN stable #IDDM: SS with coverage #Epilepsy: on depacone iv DVT ppx:Heparin SQ Monitor in ICU Visit type - Emergency Visit Emergency Visit: Yes ED Registration Date: 11/30/18 Care time: The patient presented to the Emergency Department on the above date and was hospitalized for further evaluation of their emergent condition. - New Patient This patient is new to me today: No - Critical Care Critical Care patient: No - Discharge Referral Referred to [facility] Med P.C.: No
[2018-12-03] MEDS: CHLORHEXIDINE GLUCONATE 4% CLEANSER FOR DECOLONIZATION TP SCH (21:06)
[2018-12-03] MEDS ORDERED: chlordiazePOXIDE HCL 10 MG CAPSULE PO SCH (22:00)
[2018-12-04] MEDS: HEPARIN NA (PORCINE) 5,000 UNITS/ML 1ML VIAL SQ SCH ×4 (01:02→21:48)
[2018-12-04] MEDS: CLINDAMYCIN 600MG PREMIX IVPB 600 MG/50 ML BAG IVPB SCH ×3 (01:02→17:30)
[2018-12-04 01:57] LABS: HEMATOCRIT 45.2 % (35.4-49); HEMOGLOBIN 15.2 GM/dL (11.7-16.9); MCH 30.6 pg (25.7-33.7); MCHC 33.7 g/dl (32.0-35.9); MEAN CELL VOLUME 90.9 fl (80-96); MEAN PLT VOLUME 9.7 fl (7.5-11.1); PLATELET COUNT 225 K/MM3 (134-434); RBC 4.97 M/mm3 (4.00-5.60); RDW 13.3 % (11.9-15.9); WHITE BLOOD COUNT 14.3 K/mm3 (4.0-10.0)
[2018-12-04 02:25] LABS: ALBUMIN 3.2 g/dl (3.4-5.0); BILIRUBIN,TOTAL 0.4 mg/dL (0.2-1); BLOOD UREA NITROGEN 11.9 mg/dL (7-18); CALCIUM 9.4 mg/dL (8.5-10.1); CREATININE 0.8 mg/dL (0.55-1.3); MAGNESIUM 2.4 mg/dL (1.8-2.4); PHOSPHOROUS 3.6 mg/dL (2.5-4.9); TOT PROT 6.8 g/dl (6.4-8.2)
[2018-12-04] MEDS ORDERED: ONDANSETRON 4 MG/2 ML VIAL IVPUSH ONE (04:44)
[2018-12-04] MEDS: methylPREDNISolone NA SUCC 40 MG/1 ML VIAL IVPUSH SCH ×2 (05:47→17:30)
[2018-12-04] MEDS: INSULIN SLIDING SCALE (NOVOLOG) 1 VIAL SQ SCH ×2 (07:18→12:25)
[2018-12-04] MEDS ORDERED: SODIUM CHLORIDE 1,000 ML IV STA (07:26)
[2018-12-04] MEDS ORDERED: NOREPINEPHRINE BITARTRATE 8,000 MCG in DEXTROSE 5%-WATER - 492 ML IV SCH (07:30)
[2018-12-04] MEDS: ALBUTEROL SO4 2.5/IPRATROPIUM 0.5 INH SOL 3 ML VIAL.NEB. NEB SCH ×4 (07:40→21:01)
[2018-12-04] MEDS ORDERED: IBUPROFEN 400 MG TABLET (FP) PO ONE (09:00)
[2018-12-04] MEDS: MUPIROCIN 2% TOPICAL OINTMENT FOR DECOLONIZATION NS SCH (09:06)
[2018-12-04] MEDS: VALPROATE SODIUM 500 MG/5 ML VIAL IVPB SCH ×2 (09:07→21:48)
--- NOTE | 2018-12-04 09:13 | PN ---
Progress Note (short form) - Note Progress Note: alert remains extubated NAD cxray unchanged Current Medications Albuterol/Ipratropium (Duoneb -) 1 amp NEB RQID [facility] Last Admin: 12/02/18 08:49 Dose: 1 amp Chlorhexidine Gluconate (Hibiclens For Decolonization -) 1 applic TP HS [facility] Last Admin: 12/01/18 21:42 Dose: 1 applic Heparin Sodium (Porcine) (Heparin -) 5,000 unit SQ Q8H-IV [facility] Last Admin: 12/02/18 01:02 Dose: 5,000 unit Propofol (Diprivan -) 1,000,000 mcg in 100 mls @ 9.798 mls/hr IVPB TITR [facility]; Protocol Last Titration: 12/02/18 07:43 Dose: 25 mcg/kg/min, 12.247 mls/hr Levofloxacin (Levaquin 500 Mg Premixed Ivpb -) 500 mg in 100 mls @ 100 mls/hr IVPB DAILY [facility]; Protocol Lactated Ringer's (Lactated Ringers Solution) 1,000 ml in 1,000 mls @ 100 mls/ hr IV ASDIR [facility] Stop: 12/02/18 17:59 Last Admin: 12/02/18 05:17 Dose: 100 mls/hr Clindamycin Phosphate (Cleocin 600 Mg Premix Ivpb -) 600 mg in 50 mls @ 100 mls /hr IVPB Q8H-IV [facility]; Protocol Last Admin: 12/02/18 01:02 Dose: 100 mls/hr Insulin Aspart (Novolog Vial Sliding Scale -) 1 vial SQ TIDAC [facility]; Protocol Last Admin: 12/02/18 06:11 Dose: 2 units Methylprednisolone Sodium Succinate (Solu-Medrol -) 60 mg IVPB Q6H [facility] Last Admin: 12/02/18 05:45 Dose: 60 mg Mupirocin (Bactroban Ointment (For Decolonization) -) 1 applic NS BID [facility] Stop: 12/06/18 09:59 Last Admin: 12/01/18 21:42 Dose: 1 applic Valproate Sodium (Depacon Injection -) 500 mg IVPB BID [facility] Last Admin: 12/01/18 21:42 Dose: 500 mg a/p respiratory [id number] extubated bilateral pneumonia- CAP vs aspiration polysubstance use seizure disorder diabetes penicillin allergy suspect leukocytosis is due to steroids as he is clinically improved awaiting urinary antigens, f/u sputum culture continue clindamycin and levaquin (pen allergy) Problem List - Problems (1) Acute respiratory failure with hypoxemia Code(s): J96.01 - ACUTE RESPIRATORY FAILURE WITH HYPOXIA (2) Pneumonia Code(s): J18.9 - PNEUMONIA, UNSPECIFIED ORGANISM (3) Polysubstance abuse Code(s): F19.10 - OTHER PSYCHOACTIVE SUBSTANCE ABUSE, UNCOMPLICATED (4) Seizure Code(s): R56.9 - UNSPECIFIED CONVULSIONS (5) Diabetes mellitus Code(s): E11.9 - TYPE 2 DIABETES MELLITUS WITHOUT COMPLICATIONS Qualifiers: Diabetes mellitus type: type 2 Diabetes mellitus technician terminal and repeater insulin use: unspecified technician terminal and repeater insulin use status Diabetes mellitus complication status : with unspecified complications (6) Penicillin allergy Code(s): Z88.0 - ALLERGY STATUS TO PENICILLIN
--- NOTE | 2018-12-04 09:15 | PN ---
Progress Note (short form) - Note Progress Note: REMAINS extubated no fevers Vital Signs Period Temp Pulse Resp BP Sys/Stroud Pulse Ox Last 24 Hr 98.2 F-98.4 F 69-106 14-20 126-155/70-88 97 cor-rrr lungs clear abd soft,nt ext no edema CBC, BMP 12/04/18 01:35 12/04/18 01:35 Microbiology 11/30/18 19:30 Blood - Peripheral Venous Blood Culture - Preliminary NO GROWTH OBTAINED AFTER 72 HOURS, INCUBATION TO CONTINUE FOR 2 DAYS. 11/30/18 19:30 Blood - Peripheral Venous Blood Culture - Preliminary NO GROWTH OBTAINED AFTER 72 HOURS, INCUBATION TO CONTINUE FOR 2 DAYS. 12/01/18 07:30 Sputum - Endotrachea Suction/Ventilator Gram Stain - Final 12/01/18 07:30 Sputum - Endotrachea Suction/Ventilator Sputum Culture - Final Yeast Like Organism 12/02/18 08:45 Urine For Antigen Detection Legionella Antigen - Final 12/02/18 08:45 Urine For Antigen Detection Streptococcus pneumoniae Antigen (M - Final 11/30/18 21:33 Urine - Urine Clean Catch Urine Culture - Final NO GROWTH OBTAINED Active Medications Albuterol/Ipratropium (Duoneb -) 1 amp NEB RQID [facility] Last Admin: 12/04/18 07:40 Dose: 1 amp Chlorhexidine Gluconate (Hibiclens For Decolonization -) 1 applic TP HS [facility] Last Admin: 12/03/18 21:06 Dose: 1 applic Heparin Sodium (Porcine) (Heparin -) 5,000 unit SQ Q8H-IV [facility] Last Admin: 12/04/18 09:07 Dose: 5,000 unit Levofloxacin (Levaquin 500 Mg Premixed Ivpb -) 500 mg in 100 mls @ 100 mls/hr IVPB DAILY [facility]; Protocol Last Admin: 12/04/18 09:07 Dose: 100 mls/hr Clindamycin Phosphate (Cleocin 600 Mg Premix Ivpb -) 600 mg in 50 mls @ 100 mls /hr IVPB Q8H-IV [facility]; Protocol Last Admin: 12/04/18 09:06 Dose: 100 mls/hr Insulin Aspart (Novolog Vial Sliding Scale -) 1 vial SQ TIDAC [facility]; Protocol Last Admin: 12/04/18 07:18 Dose: Not Given Lorazepam (Ativan Injection -) 1 mg IVPUSH Q6H PRN PRN Reason: AGITATION Methadone HCl (Dolophine -) 15 mg PO ONCE ONE Stop: 12/04/18 10:01 Methadone HCl (Dolophine -) 10 mg PO ONCE ONE Stop: 12/05/18 10:01 Methadone HCl (Dolophine -) 5 mg PO ONCE ONE Stop: 12/06/18 06:01 Methylprednisolone Sodium Succinate (Solu-Medrol -) 40 mg IVPUSH Q12H [facility] Last Admin: 12/04/18 05:47 Dose: 40 mg Mupirocin (Bactroban Ointment (For Decolonization) -) 1 applic NS BID [facility] Stop: 12/06/18 09:59 Last Admin: 12/04/18 09:06 Dose: 1 applic Valproate Sodium (Depacon Injection -) 500 mg IVPB BID [facility] Last Admin: 12/04/18 09:07 Dose: 500 mg a/p resp failure- now extubated probable aspiration pneumonia polysubstance use- hiv negative pen allergy day #4 clindamycin/levaquin- plan total 7 days add probiotics Problem List - Problems (1) Acute respiratory failure with hypoxemia Code(s): J96.01 - ACUTE RESPIRATORY FAILURE WITH HYPOXIA (2) Pneumonia Code(s): J18.9 - PNEUMONIA, UNSPECIFIED ORGANISM (3) Polysubstance abuse Code(s): F19.10 - OTHER PSYCHOACTIVE SUBSTANCE ABUSE, UNCOMPLICATED (4) Seizure Code(s): R56.9 - UNSPECIFIED CONVULSIONS (5) Diabetes mellitus Code(s): E11.9 - TYPE 2 DIABETES MELLITUS WITHOUT COMPLICATIONS Qualifiers: Diabetes mellitus type: type 2 Diabetes mellitus snf insulin use: unspecified snf insulin use status Diabetes mellitus complication status : with unspecified complications (6) Penicillin allergy Code(s): Z88.0 - ALLERGY STATUS TO PENICILLIN
--- NOTE | 2018-12-04 09:49 | PN ---
Teaching Attending Note Name of Resident: Diego Ludwig ATTENDING PHYSICIAN STATEMENT I saw and evaluated the patient. I reviewed the resident's note and discussed the case with the resident. I agree with the resident's findings and plan as documented. SUBJECTIVE: Patient seen and examined in the ICU. Extubated, awake, mildly agitated. Asking for Motrin due to generalized pain and SHAFFER. No evidence of withdrawal. No pressors. Intake & Output 12/01/18 12/02/18 12/03/18 12/04/18 23:59 23:59 23:59 23:59 Intake Total 1889.4 2988 1700 Output Total 1100 1300 Balance 1889.4 1888 400 Weight 151 lb 1.6 oz 151 lb 158 lb 12.8 oz Last Vital Signs Temp Pulse Resp BP Pulse Ox 98.2 F 75 17 139/71 97 12/04/18 06:00 12/04/18 08:00 12/04/18 08:00 12/04/18 08:00 12/03/18 21:00 Active Medications Albuterol/Ipratropium (Duoneb -) 1 amp NEB RQID [facility] Last Admin: 12/04/18 07:40 Dose: 1 amp Chlorhexidine Gluconate (Hibiclens For Decolonization -) 1 applic TP HS [facility] Last Admin: 12/03/18 21:06 Dose: 1 applic Heparin Sodium (Porcine) (Heparin -) 5,000 unit SQ Q8H-IV [facility] Last Admin: 12/04/18 09:07 Dose: 5,000 unit Levofloxacin (Levaquin 500 Mg Premixed Ivpb -) 500 mg in 100 mls @ 100 mls/hr IVPB DAILY [facility]; Protocol Last Admin: 12/04/18 09:07 Dose: 100 mls/hr Clindamycin Phosphate (Cleocin 600 Mg Premix Ivpb -) 600 mg in 50 mls @ 100 mls /hr IVPB Q8H-IV [facility]; Protocol Last Admin: 12/04/18 09:06 Dose: 100 mls/hr Insulin Aspart (Novolog Vial Sliding Scale -) 1 vial SQ TIDAC [facility]; Protocol Last Admin: 12/04/18 07:18 Dose: Not Given Lactobacillus Acidophilus (Bacid -) 1 tab PO DAILY [facility] Lorazepam (Ativan Injection -) 1 mg IVPUSH Q6H PRN PRN Reason: AGITATION Methadone HCl (Dolophine -) 15 mg PO ONCE ONE Stop: 12/04/18 10:01 Last Admin: 12/04/18 09:24 Dose: 15 mg Methadone HCl (Dolophine -) 10 mg PO ONCE ONE Stop: 12/05/18 10:01 Methadone HCl (Dolophine -) 5 mg PO ONCE ONE Stop: 12/06/18 06:01 Methylprednisolone Sodium Succinate (Solu-Medrol -) 40 mg IVPUSH Q12H [facility] Last Admin: 12/04/18 05:47 Dose: 40 mg Mupirocin (Bactroban Ointment (For Decolonization) -) 1 applic NS BID [facility] Stop: 12/06/18 09:59 Last Admin: 12/04/18 09:06 Dose: 1 applic Valproate Sodium (Depacon Injection -) 500 mg IVPB BID [facility] Last Admin: 12/04/18 09:07 Dose: 500 mg GENERAL: Extubated, awake and alert, mildly agitated, less confused HEAD: Normocephalic, atraumatic. EYES: sclera anicteric, conjunctiva clear. EARS, NOSE, THROAT: Oropharynx clear without exudates. Moist mucous membranes. NECK: Supple without lymphadenopathy, or JVD LUNGS: scattered bilateral rhonchi, no wheezing HEART: Regular rate and rhythm, normal S1 and S2 without murmur, rub or gallop. ABDOMEN: Soft, nontender, not distended, normoactive bowel sounds, no guarding, no rebound, no masses. No hepatomegaly or splenomegaly. EXTREMITIES: 2+ radial, dorsalis pedis pulses bilaterally, warm, well-perfused. NEUROLOGICAL: non-focal, confused SKIN: Warm, dry. Laboratory Results - last 24 hr 12/03/18 12/03/18 12/04/18 12:15 18:21 01:35 WBC 14.3 H RBC 4.97 Hgb 15.2 Hct 45.2 MCV 90.9 MCH 30.6 MCHC 33.7 RDW 13.3 Plt Count 225 MPV 9.7 Sodium Potassium Chloride Carbon Dioxide Anion Gap BUN Creatinine Est GFR (CKD-EPI)AfAm Est GFR (CKD-EPI)NonAf POC Glucometer 137 127 Random Glucose Calcium Phosphorus Magnesium Total Bilirubin AST ALT Alkaline Phosphatase Total Protein Albumin 12/04/18 12/04/18 01:35 07:07 WBC RBC Hgb Hct MCV MCH MCHC RDW Plt Count MPV Sodium 143 Potassium 4.0 Chloride 100 Carbon Dioxide 36 H Anion Gap 7 L BUN 11.9 Creatinine 0.8 Est GFR (CKD-EPI)AfAm 121.57 Est GFR (CKD-EPI)NonAf 104.89 POC Glucometer 117 Random Glucose 115 H Calcium 9.4 Phosphorus 3.6 Magnesium 2.4 Total Bilirubin 0.4 AST 18 ALT 20 Alkaline Phosphatase 75 Total Protein 6.8 Albumin 3.2 L ASSESSMENT/PLAN: Acute hypoxic and hypercapnic respiratory failure R/O Sepsis secondary to Aspiration Pneumonitis Heroin dependence Alcohol dependence Diabetes mellitus S/P unwitnessed fall Suspected seizure activity VTE prophylaxis Wean medrol Monitor for withdrawal ABX coverage Floor Dr Finney
[2018-12-04] MEDS ORDERED: METHADONE HCL 5 MG TABLET PO ONE (10:00)
--- NOTE | 2018-12-04 12:03 | PN ---
Physical Exam: SUBJECTIVE: Patient seen and examined at bedside. Complaining of mild headache, requesting ibuprofen. No respiratory or cardiac complaints. OBJECTIVE: Vital Signs Period Temp Pulse Resp BP Sys/Stroud Pulse Ox Last 24 Hr 98.2 F-98.4 F 68-106 14-18 135-155/70-88 97-97 GENERAL: A&Ox3, no acute distress EYES: PERRLA, EOMI ENT: Moist mucus membranes NECK: No JVD LUNGS: CTA, no wheezes HEART: RRR, no murmurs ABDOMEN: Soft, nontender, BS present MUSCULOSKELETAL: No CVA Tenderness EXTREMITIES: 2+ pulses, no edema. NEUROLOGICAL: Cranial nerves II-XII intact. Laboratory Results - last 24 hr 12/03/18 12/03/18 12/04/18 12:15 18:21 01:35 WBC 14.3 H RBC 4.97 Hgb 15.2 Hct 45.2 MCV 90.9 MCH 30.6 MCHC 33.7 RDW 13.3 Plt Count 225 MPV 9.7 Sodium Potassium Chloride Carbon Dioxide Anion Gap BUN Creatinine Est GFR (CKD-EPI)AfAm Est GFR (CKD-EPI)NonAf POC Glucometer 137 127 Random Glucose Calcium Phosphorus Magnesium Total Bilirubin AST ALT Alkaline Phosphatase Total Protein Albumin 12/04/18 12/04/18 12/04/18 01:35 07:07 11:56 WBC RBC Hgb Hct MCV MCH MCHC RDW Plt Count MPV Sodium 143 Potassium 4.0 Chloride 100 Carbon Dioxide 36 H Anion Gap 7 L BUN 11.9 Creatinine 0.8 Est GFR (CKD-EPI)AfAm 121.57 Est GFR (CKD-EPI)NonAf 104.89 POC Glucometer 117 116 Random Glucose 115 H Calcium 9.4 Phosphorus 3.6 Magnesium 2.4 Total Bilirubin 0.4 AST 18 ALT 20 Alkaline Phosphatase 75 Total Protein 6.8 Albumin 3.2 L Active Medications Generic Name Dose Route Start Last Admin Trade Name Freq PRN Reason Stop Dose Admin Albuterol/Ipratropium 1 amp 12/01/18 08:00 12/04/18 12:00 Duoneb - NEB Not Given RQID [facility] Chlorhexidine Gluconate 1 applic 12/01/18 22:00 12/03/18 21:06 Hibiclens For Decolonization - TP 1 applic HS [facility] Administration Heparin Sodium (Porcine) 5,000 unit 12/01/18 02:00 12/04/18 09:07 Heparin - SQ 5,000 unit Q8H-IV [facility] Administration Levofloxacin 500 mg in 100 mls @ 100 mls/hr 12/02/18 10:00 12/04/18 09:07 Levaquin 500 Mg Premixed Ivpb - IVPB 100 mls/hr DAILY [facility] Administration Protocol Clindamycin Phosphate 600 mg in 50 mls @ 100 mls/hr 12/01/18 10:00 12/04/18 09:06 Cleocin 600 Mg Premix Ivpb - IVPB 100 mls/hr Q8H-IV [facility] Administration Protocol Insulin Aspart 1 vial 12/01/18 07:00 12/04/18 07:18 Novolog Vial Sliding Scale - SQ Not Given TIDAC [facility] Protocol Lactobacillus Acidophilus 1 tab 12/04/18 10:00 Bacid - PO DAILY [facility] Lorazepam 1 mg 12/02/18 13:36 Ativan Injection - IVPUSH Q6H PRN AGITATION Methadone HCl 10 mg 12/05/18 10:00 Dolophine - PO 12/05/18 10:01 ONCE ONE Methadone HCl 5 mg 12/06/18 06:00 Dolophine - PO 12/06/18 06:01 ONCE ONE Methylprednisolone Sodium Succinate 40 mg 12/04/18 06:00 12/04/18 05:47 Solu-Medrol - IVPUSH 40 mg Q12H [facility] Administration Mupirocin 1 applic 12/01/18 10:00 12/04/18 09:06 Bactroban Ointment (For Decolonization) - NS 12/06/18 09:59 1 applic BID [facility] Administration Valproate Sodium 500 mg 12/01/18 10:00 12/04/18 09:07 Depacon Injection - IVPB 500 mg BID [facility] Administration ASSESSMENT/PLAN: 48 year old male with hx alcohol abuse (2 pints daily), heroin abuse, hx withdrawal seizures, insulin dependent diabetes, asthma, hypertension came to the emergency department after being found unresponsive, found to have bilateral pneumonia #Loss of Consciousness #Sepsis 2/2 Bilateral Pneumonia #Hypoxic Hypercapnic Respiratory Failure #Alcohol Abuse #Heroin Abuse #Insulin Dependent Diabetes Mellitus #Asthma #Hypertension Neurological -Loss of consciousness: resolved, likely 2/2 benzo overdose -detox consult, continue methadone taper -continue valproic acid Cardiovascular -patient has history of hypertension, normotensive at present -monitor patient on telemetry -EKG NSR with normal QTc Pulmonary -extubated -antibiotics levaquin and clindamycin will be continued -continue solumedrol 40 BID Gastrointestinal -no acute abnormalities Renal -no acute Infectious Diseases -levaquin/clinda -urine legionella/pneumococcus antigens FEN -no standing fluids -follow lytes -diet restarted Prophylaxis -on lovenox Disposition -downgrade from ICU today Visit type - Emergency Visit Emergency Visit: No - New Patient This patient is new to me today: No - Critical Care Critical Care patient: No ATTENDING PHYSICIAN STATEMENT I saw and evaluated the patient. I reviewed the resident's note and discussed the case with the resident. I agree with the resident's findings and plan as documented. SUBJECTIVE: OBJECTIVE: ASSESSMENT AND PLAN:
[2018-12-04] MEDS: LACTOBACILLUS ACIDOPHILUS 1 TABLET PO SCH (12:25)
--- NOTE | 2018-12-04 14:19 | PN ---
Progress Note (short form) - Note Progress Note: I was called by nurse in [address] [place] regarding an unwitnessed fall. Pt claimed to hit his head after slipping over his vomit. Pt did not lose consciousness prior or after the fall. Upon evaluation: VS: 131/97, 105HR - Pt was very lethargic and non-responsive to commands. - I could not perform an adequate neuro exam other than assessment of his pupillary response which was found to be PEERLA due to pt's lethargic state. Plan: Neuro checks q1h for the first 12 hrs and then q4h for [address] head Reassess after results of CT.
[2018-12-04] MEDS ORDERED: ONDANSETRON 4 MG/2 ML VIAL IVPUSH PRN (16:24)
--- NOTE | 2018-12-04 16:27 | PN ---
Physical Exam: SUBJECTIVE: Patient seen and examined. Pt had an unwitnessed fall due to slipping on his own vomit and hit his head. Will follow up that CT head and do neuro checks every 1 hr for the first 12 hrs. OBJECTIVE: Vital Signs Period Temp Pulse Resp BP Sys/Stroud Pulse Ox Last 24 Hr 97.3 F-98.2 F 68-106 16-19 135-155/70-88 97-97 GENERAL: The patient is lethargic and slow to respond to commands. HEAD: Normal with no signs of trauma. EYES: PERRLA NECK: supple. LUNGS: Breath sounds equal, clear to auscultation bilaterally, no wheezes, no crackles, no accessory muscle use. HEART: Regular rate and rhythm, S1, S2 without murmur, rub or gallop. ABDOMEN: Soft, nontender, nondistended, no guarding, no rebound. EXTREMITIES: 2+ pulses, warm, well-perfused, no edema. NEUROLOGICAL: could not assess due to severe lethargy SKIN: Warm, dry, no rashes or lesions noted Laboratory Results - last 24 hr 12/03/18 12/04/18 12/04/18 18:21 01:35 01:35 WBC 14.3 H RBC 4.97 Hgb 15.2 Hct 45.2 MCV 90.9 MCH 30.6 MCHC 33.7 RDW 13.3 Plt Count 225 MPV 9.7 Sodium 143 Potassium 4.0 Chloride 100 Carbon Dioxide 36 H Anion Gap 7 L BUN 11.9 Creatinine 0.8 Est GFR (CKD-EPI)AfAm 121.57 Est GFR (CKD-EPI)NonAf 104.89 POC Glucometer 127 Random Glucose 115 H Calcium 9.4 Phosphorus 3.6 Magnesium 2.4 Total Bilirubin 0.4 AST 18 ALT 20 Alkaline Phosphatase 75 Total Protein 6.8 Albumin 3.2 L 12/04/18 12/04/18 07:07 11:56 WBC RBC Hgb Hct MCV MCH MCHC RDW Plt Count MPV Sodium Potassium Chloride Carbon Dioxide Anion Gap BUN Creatinine Est GFR (CKD-EPI)AfAm Est GFR (CKD-EPI)NonAf POC Glucometer 117 116 Random Glucose Calcium Phosphorus Magnesium Total Bilirubin AST ALT Alkaline Phosphatase Total Protein Albumin Active Medications Generic Name Dose Route Start Last Admin Trade Name Freq PRN Reason Stop Dose Admin Albuterol/Ipratropium 1 amp 12/04/18 16:00 Duoneb - NEB RQID [facility] Chlorhexidine Gluconate 1 applic 12/04/18 22:00 Hibiclens For Decolonization - TP HS [facility] Heparin Sodium (Porcine) 5,000 unit 12/04/18 14:00 12/04/18 14:06 Heparin - SQ Not Given TID [facility] Clindamycin Phosphate 600 mg in 50 mls @ 100 mls/hr 12/04/18 18:00 Cleocin 600 Mg Premix Ivpb - IVPB Q8H-IV [facility] Protocol Levofloxacin 500 mg in 100 mls @ 100 mls/hr 12/05/18 10:00 Levaquin 500 Mg Premixed Ivpb - IVPB DAILY [facility] Protocol Sodium Chloride 1,000 mls @ 100 mls/hr 12/04/18 15:30 Normal Saline - IV ASDIR [facility] Lactobacillus Acidophilus 1 tab 12/04/18 10:00 12/04/18 12:25 Bacid - PO Not Given DAILY [facility] Lorazepam 1 mg 12/04/18 12:28 Ativan Injection - IVPUSH Q6H PRN AGITATION Methadone HCl 10 mg 12/05/18 10:00 Dolophine - PO 12/05/18 10:01 ONCE ONE Methadone HCl 5 mg 12/06/18 06:00 Dolophine - PO 12/06/18 06:01 ONCE ONE Methylprednisolone Sodium Succinate 40 mg 12/04/18 06:00 12/04/18 05:47 Solu-Medrol - IVPUSH 40 mg Q12H [facility] Administration Mupirocin 1 applic 12/04/18 22:00 Bactroban Ointment (For Decolonization) - NS 12/06/18 09:59 BID [facility] Ondansetron HCl 4 mg 12/04/18 16:24 Zofran Injection IVPUSH DAILY PRN NAUSEA AND/OR VOMITING Polyethylene Glycol 17 gm 12/04/18 16:30 Miralax (For Daily Use) - PO DAILY [facility] Valproate Sodium 500 mg 12/04/18 22:00 Depacon Injection - IVPB BID [facility] ASSESSMENT/PLAN: Patient is a 48 year old male with PMH of IDDM, HTN, epilepsy, alcohol and heroin abuse, and anxiety who was BIBEMS from [facility] with AMS. #Sepsis 2/2 PNA with acute hypercapnic respiratory failure - c/w solumedrol 60mg Q6H - downtrending wbc to 14 from 16, continuing levo, clinda - extubated and off sedation although still lethargic - Hydrate with IV LR 100mL/hr #Mild tropinemia - Could have been 2/2 sepsis #Substance abuse - Pt is off sedation, on methadone 10mg PO at this time #HTN contuining to hold BP meds #IDDM SSI TIDAC #Epilepsy -continuing depakote po 500mg BID. - on lorazepam #FEN Cont IV NS @ 100ml/hr Monitor lytes and replete as needed NPO for now given his lethargic state #DVT ppx Heparin SQ #Dispo: monitoring on med surg Visit type - Emergency Visit Emergency Visit: Yes ED Registration Date: 11/30/18 Care time: The patient presented to the Emergency Department on the above date and was hospitalized for further evaluation of their emergent condition. - New Patient This patient is new to me today: No - Critical Care Critical Care patient: No - Discharge Referral Referred to [facility] Med P.C.: No ATTENDING PHYSICIAN STATEMENT I saw and evaluated the patient. I reviewed the resident's note and discussed the case with the resident. I agree with the resident's findings and plan as documented. SUBJECTIVE: OBJECTIVE: ASSESSMENT AND PLAN:
[2018-12-04] MEDS ORDERED: INSULIN SLIDING SCALE (NOVOLOG) 1 VIAL SQ SCH (16:30)
[2018-12-04] MEDS: SODIUM CHLORIDE 1,000 ML IV SCH (17:29)
[2018-12-04] MEDS: POLYETHYLENE GLYCOL 3350 119 GM BTL PO SCH (17:29)
--- NOTE | 2018-12-04 17:33 | PN ---
Teaching Attending Note Name of Resident: Ross Wasserman ATTENDING PHYSICIAN STATEMENT I saw and evaluated the patient. I reviewed the resident's note and discussed the case with the resident. I agree with the resident's findings and plan as documented. SUBJECTIVE: Patient is comfortable with no acute distress. patient had an episode of vomiting where he fell in his vomitus. OBJECTIVE: Vital Signs Temperature 97.3 F L 12/04/18 14:00 Pulse Rate 83 12/04/18 14:00 Respiratory Rate 19 12/04/18 14:00 Blood Pressure 142/88 12/04/18 14:00 O2 Sat by Pulse Oximetry (%) 97 12/04/18 14:00 GENERAL: The patient is extubated , in NAD HEAD: Normal with no signs of trauma. EYES: PERRL, extraocular movements intact, sclera anicteric, conjunctiva clear. ENT: Ears normal, NECK: Trachea midline, supple LUNGS: , decreased BS BL, on VM, No crackles HEART: Regular rate and rhythm, S1, S2 without murmur, rub or gallop. ABDOMEN: Soft, nontender, nondistended, normoactive bowel sounds, no guarding, no rebound, no hepatosplenomegaly, no masses appreciated. EXTREMITIES: 2+ pulses, warm, well-perfused, no edema. NEUROLOGICAL: Cranial nerves II through XII grossly intact. PSYCH: Normal mood, normal affect. SKIN: Warm, dry, normal turgor, no rashes or lesions noted CBCD WBC 14.3 K/mm3 (4.0-10.0) H 12/04/18 01:35 RBC 4.97 M/mm3 (4.00-5.60) 12/04/18 01:35 Hgb 15.2 GM/dL (11.7-16.9) 12/04/18 01:35 Hct 45.2 % (35.4-49) 12/04/18 01:35 MCV 90.9 fl (80-96) 12/04/18 01:35 MCHC 33.7 g/dl (32.0-35.9) 12/04/18 01:35 RDW 13.3 % (11.9-15.9) 12/04/18 01:35 Plt Count 225 K/MM3 (134-434) 12/04/18 01:35 MPV 9.7 fl (7.5-11.1) 12/04/18 01:35 CMP Sodium 143 mmol/L (136-145) 12/04/18 01:35 Potassium 4.0 mmol/L (3.5-5.1) 12/04/18 01:35 Chloride 100 mmol/L (98-107) 12/04/18 01:35 Carbon Dioxide 36 mmol/L (21-32) H 12/04/18 01:35 Anion Gap 7 MMOL/L (8-16) L 12/04/18 01:35 BUN 11.9 mg/dL (7-18) 12/04/18 01:35 Creatinine 0.8 mg/dL (0.55-1.3) 12/04/18 01:35 Random Glucose 115 mg/dL (74-106) H 12/04/18 01:35 Calcium 9.4 mg/dL (8.5-10.1) 12/04/18 01:35 Total Bilirubin 0.4 mg/dL (0.2-1) 12/04/18 01:35 AST 18 U/L (15-37) 12/04/18 01:35 ALT 20 U/L (13-61) 12/04/18 01:35 Alkaline Phosphatase 75 U/L (45-117) 12/04/18 01:35 Total Protein 6.8 g/dl (6.4-8.2) 12/04/18 01:35 Albumin 3.2 g/dl (3.4-5.0) L 12/04/18 01:35 CARDIAC ENZYMES Troponin I 0.03 ng/ml (0.00-0.05) 12/01/18 04:15 Current Medications Generic Name Dose Route Start Last Admin Trade Name Shana PRN Reason Stop Dose Admin Albuterol/Ipratropium 1 amp 12/04/18 16:00 12/04/18 16:56 Duoneb - NEB Not Given RQID [facility] Chlorhexidine Gluconate 1 applic 12/04/18 22:00 Hibiclens For Decolonization - TP HS [facility] Heparin Sodium (Porcine) 5,000 unit 12/04/18 14:00 12/04/18 14:06 Heparin - SQ Not Given TID [facility] Clindamycin Phosphate 600 mg in 50 mls @ 100 mls/hr 12/04/18 18:00 12/04/18 17:30 Cleocin 600 Mg Premix Ivpb - IVPB 100 mls/hr Q8H-IV [facility] Administration Protocol Levofloxacin 500 mg in 100 mls @ 100 mls/hr 12/05/18 10:00 Levaquin 500 Mg Premixed Ivpb - IVPB DAILY [facility] Protocol Sodium Chloride 1,000 mls @ 100 mls/hr 12/04/18 15:30 12/04/18 17:29 Normal Saline - IV 100 mls/hr ASDIR [facility] Administration Lactobacillus Acidophilus 1 tab 12/04/18 10:00 12/04/18 12:25 Bacid - PO Not Given DAILY [facility] Lorazepam 1 mg 12/04/18 12:28 Ativan Injection - IVPUSH Q6H PRN AGITATION Methadone HCl 10 mg 12/05/18 10:00 Dolophine - PO 12/05/18 10:01 ONCE ONE Methadone HCl 5 mg 12/06/18 06:00 Dolophine - PO 12/06/18 06:01 ONCE ONE Methylprednisolone Sodium Succinate 40 mg 12/04/18 06:00 12/04/18 17:30 Solu-Medrol - IVPUSH 40 mg Q12H [facility] Administration Mupirocin 1 applic 12/04/18 22:00 Bactroban Ointment (For Decolonization) - NS 12/06/18 09:59 BID [facility] Ondansetron HCl 4 mg 12/04/18 16:24 Zofran Injection IVPUSH DAILY PRN NAUSEA AND/OR VOMITING Polyethylene Glycol 17 gm 12/04/18 16:30 12/04/18 17:29 Miralax (For Daily Use) - PO 17 grams DAILY [facility] Administration Valproate Sodium 500 mg 12/04/18 22:00 Depacon Injection - IVPB BID [facility] Home Medications Medication Instructions Recorded Divalproex [Depakote -] 500 mg PO BID 11/17/17 RX: Fluoxetine HCl [Prozac -] 20 mg PO DAILY 11/17/17 RX: Benztropine Mesylate [Cogentin 1 mg PO BID #60 tablet 11/18/17 -] RX: Risperidone [Risperdal -] 1 mg PO BID #60 tablet 11/18/17 RX: Amlodipine Besylate [Norvasc -] 5 mg PO BID #30 tablet 12/16/17 RX: Cyclobenzaprine HCl 5 mg PO DAILY 11/28/18 Methadone (Detox) [Dolophine -] 0 mg PO ASDIR 11/30/18 Microbiology 11/30/18 19:30 Blood - Peripheral Venous Blood Culture - Preliminary NO GROWTH OBTAINED AFTER 72 HOURS, INCUBATION TO CONTINUE FOR 2 DAYS. 11/30/18 19:30 Blood - Peripheral Venous Blood Culture - Preliminary NO GROWTH OBTAINED AFTER 72 HOURS, INCUBATION TO CONTINUE FOR 2 DAYS. 12/01/18 07:30 Sputum - Endotrachea Suction/Ventilator Gram Stain - Final 12/01/18 07:30 Sputum - Endotrachea Suction/Ventilator Sputum Culture - Final Yeast Like Organism 12/02/18 08:45 Urine For Antigen Detection Legionella Antigen - Final 12/02/18 08:45 Urine For Antigen Detection Streptococcus pneumoniae Antigen (M - Final 11/30/18 21:33 Urine - Urine Clean Catch Urine Culture - Final NO GROWTH OBTAINED ASSESSMENT AND PLAN: Patient is a 48 year old male with PMHx of IDDM, HTN, epilepsy, alcohol and heroin abuse, and anxiety PRESENTED TO ED. and was found to have bl Pneumonia presented from [facility] with AMS. # acute vomiting where patient fell in his vomitus , stat CT of the ordered, CT not done yet, called radiology to expedite the Ct scan. follow the result of head cT head . NPO for now, just for meds, IVF # Acute hypoxic respiratory failure due to having bl pneumonia (CAP vs Aspiration) on clindamycin and levaquin continue,s/p extubation, patient is transferred out of ICU today. # s/p Sepsis due to PNA (CAP vs Aspiration) on clindamycin and levaquin , no growth x 24hr , urinary antigens for legionella and pneumcoccus negative #Mild tropinemia with EKG: NSR, no ST elevations of depressions #Polysubstance abuse on methadone seen by the detox team #HTN stable continue to monitor #IDDM: SS with coverage #Epilepsy: on depacone iv DVT ppx:Heparin SQ continue to monitor] CT of head to follow
[2018-12-04] MEDS: LORazepam 2 MG/ML SDV VIAL IVPUSH PRN (20:22)
[2018-12-04] MEDS ORDERED: MUPIROCIN 2% TOPICAL OINTMENT FOR DECOLONIZATION NS SCH (22:00)
[2018-12-04] MEDS ORDERED: CHLORHEXIDINE GLUCONATE 4% CLEANSER FOR DECOLONIZATION TP SCH (22:00)
[2018-12-05] MEDS: CLINDAMYCIN 600MG PREMIX IVPB 600 MG/50 ML BAG IVPB SCH ×3 (01:02→17:03)
[2018-12-05] MEDS: ONDANSETRON 4 MG/2 ML VIAL IVPUSH PRN (03:21)
[2018-12-05] MEDS: methylPREDNISolone NA SUCC 40 MG/1 ML VIAL IVPUSH SCH (05:10)
[2018-12-05] MEDS: HEPARIN NA (PORCINE) 5,000 UNITS/ML 1ML VIAL SQ SCH ×2 (05:11→21:38)
--- NOTE | 2018-12-05 06:44 | EKG ---
Test Reason : Blood Pressure : / mmHG Vent. Rate : 072 BPM Atrial Rate : 072 BPM P-R Int : 110 ms QRS Dur : 106 ms QT Int : 380 ms P-R-T Axes : 037 049 040 degrees QTc Int : 416 ms SINUS RHYTHM WITH SHORT MA OTHERWISE NORMAL ECG WHEN COMPARED WITH ECG OF 02-DEC-2018 11:31, NO SIGNIFICANT CHANGE WAS FOUND Confirmed by JEREMY HERNANDEZ MD ([id number]) on 12/05/2018 6:44:37 AM Referred By: Murray SPENCER Confirmed By:JEREMY HERNANDEZ MD
[2018-12-05] MEDS: ALBUTEROL SO4 2.5/IPRATROPIUM 0.5 INH SOL 3 ML VIAL.NEB. NEB SCH ×4 (07:35→20:06)
[2018-12-05] MEDS: LACTOBACILLUS ACIDOPHILUS 1 TABLET PO SCH (09:00)
[2018-12-05] MEDS: VALPROATE SODIUM 500 MG/5 ML VIAL IVPB SCH ×2 (09:51→21:38)
[2018-12-05] MEDS: POLYETHYLENE GLYCOL 3350 119 GM BTL PO SCH (09:51)
[2018-12-05] MEDS ORDERED: METHADONE HCL 10 MG TABLET PO ONE (10:00)
--- NOTE | 2018-12-05 14:10 | PN ---
Progress Note, VETERINARY TECHNICIAN - Note Progress Note: Selected Entries 12/03/18 12/03/18 12/03/18 08:41 10:12 15:52 Breakfast 100% Lunch 100% Supper NPO Temperature 12/03/18 12/04/18 12/04/18 22:00 06:00 10:00 Breakfast 75% Lunch Supper 100% 100% Temperature 98.2 F 12/04/18 12/04/18 12/04/18 14:00 16:00 18:00 Breakfast Lunch Supper Temperature 97.3 F L 97.2 F L 97.4 F L 12/04/18 12/04/18 12/04/18 18:18 19:54 20:00 Breakfast Lunch Supper Temperature 97.2 F L 98.5 F 98.5 F 12/04/18 12/04/18 12/04/18 21:54 21:55 22:00 Breakfast Lunch Supper NPO Temperature 98.0 F 98.0 F 12/04/18 12/05/18 12/05/18 23:54 00:00 01:54 Breakfast Lunch Supper Temperature 98.1 F 98.1 F 98.1 F 12/05/18 12/05/18 12/05/18 02:00 05:54 06:00 Breakfast Lunch Supper Temperature 98.1 F 97.9 F 98.5 F 12/05/18 12/05/18 09:54 10:14 Breakfast NPO Lunch Supper Temperature 98.5 F Laboratory Tests 12/01/18 12/02/18 04:15 06:26 WBC 12.4 H 16.0 H Pt made NPO after vomiting/nausea. oob.Lethargic. Needs frequent reminders to open eyes. Tongue coated with thick white patches c/w erika. Dr. Wasserman made aware. Swallow seems much stronger. REC: MBS to r/o aspiration and initiate PO diet Erika/thrush mgmt.
--- NOTE | 2018-12-05 14:34 | PN ---
Progress Note (short form) - Note Progress Note: PULMONARY Denies shortness of breath. +nonproductive cough. No fevers or chills. Vital Signs Period Temp Pulse Resp BP Sys/Stroud Pulse Ox Last 24 Hr 97.2 F-98.5 F 70-116 18-22 134-160/76-108 90-95 Gen: NAD in chair Heart: RRR Lung: decreased breath sounds at the bases Abd: soft, nontender Ext: no edema CBC, BMP 12/04/18 01:35 12/04/18 01:35 Active Medications Albuterol/Ipratropium (Duoneb -) 1 amp NEB RQID [facility] Last Admin: 12/05/18 11:40 Dose: Not Given Heparin Sodium (Porcine) (Heparin -) 5,000 unit SQ TID [facility] Last Admin: 12/05/18 05:11 Dose: 5,000 unit Clindamycin Phosphate (Cleocin 600 Mg Premix Ivpb -) 600 mg in 50 mls @ 100 mls /hr IVPB Q8H-IV [facility]; Protocol Last Admin: 12/05/18 09:00 Dose: 100 mls/hr Levofloxacin (Levaquin 500 Mg Premixed Ivpb -) 500 mg in 100 mls @ 100 mls/hr IVPB DAILY [facility]; Protocol Last Admin: 12/05/18 09:02 Dose: 100 mls/hr Sodium Chloride (Normal Saline -) 1,000 mls @ 100 mls/hr IV ASDIR [facility] Last Admin: 12/04/18 17:29 Dose: 100 mls/hr Lactobacillus Acidophilus (Bacid -) 1 tab PO DAILY [facility] Last Admin: 12/05/18 09:00 Dose: 1 tab Lorazepam (Ativan Injection -) 1 mg IVPUSH Q6H PRN PRN Reason: AGITATION Last Admin: 12/04/18 20:22 Dose: 1 mg Methadone HCl (Dolophine -) 5 mg PO ONCE ONE Stop: 12/06/18 06:01 Methylprednisolone Sodium Succinate (Solu-Medrol -) 40 mg IVPUSH Q12H [facility] Last Admin: 12/05/18 05:10 Dose: 40 mg Ondansetron HCl (Zofran Injection) 4 mg IVPUSH Q8H PRN PRN Reason: NAUSEA Last Admin: 12/05/18 03:21 Dose: 4 mg Polyethylene Glycol (Miralax (For Daily Use) -) 17 gm PO DAILY [facility] Last Admin: 12/05/18 09:51 Dose: Not Given Valproate Sodium (Depacon Injection -) 500 mg IVPB BID [facility] Last Admin: 12/05/18 09:51 Dose: 500 mg A/P Acute Hypoxic and Hypercapneic Respiratory Failure Pneumonia likely Aspiration Sepsis Polysubstance Abuse DM - complete antibiotics - can change steroids to PO prednisone 40mg daily x 2 more days - O2 as needed - aspiration precautions - DVT prophylaxis
--- NOTE | 2018-12-05 17:10 | PN ---
Teaching Attending Note Name of Resident: Ross Wasserman ATTENDING PHYSICIAN STATEMENT I saw and evaluated the patient. I reviewed the resident's note and discussed the case with the resident. I agree with the resident's findings and plan as documented. SUBJECTIVE: Patient has cough. He feels hungry and wants to eat. OBJECTIVE: Vital Signs Period Temp Pulse Resp BP Sys/Stroud Pulse Ox Last 24 Hr 97.2 F-98.6 F 70-116 18-22 128-160/76-108 90-95 HEART: S1S2, RRR LUNGS: Clear ABDOMEN: Soft, non-tender, non-distended, normal BS EXTREMITIES: No edema Current Medications Generic Name Dose Route Start Last Admin Trade Name Freq PRN Reason Stop Dose Admin Albuterol/Ipratropium 1 amp 12/04/18 16:00 12/05/18 11:40 Duoneb - NEB Not Given RQID [facility] Heparin Sodium (Porcine) 5,000 unit 12/04/18 14:00 12/05/18 05:11 Heparin - SQ 5,000 unit TID [facility] Administration Clindamycin Phosphate 600 mg in 50 mls @ 100 mls/hr 12/04/18 18:00 12/05/18 09:00 Cleocin 600 Mg Premix Ivpb - IVPB 100 mls/hr Q8H-IV [facility] Administration Protocol Levofloxacin 500 mg in 100 mls @ 100 mls/hr 12/05/18 10:00 12/05/18 09:02 Levaquin 500 Mg Premixed Ivpb - IVPB 100 mls/hr DAILY [facility] Administration Protocol Sodium Chloride 1,000 mls @ 100 mls/hr 12/04/18 15:30 12/04/18 17:29 Normal Saline - IV 100 mls/hr ASDIR [facility] Administration Lactobacillus Acidophilus 1 tab 12/04/18 10:00 12/05/18 09:00 Bacid - PO 1 tab DAILY [facility] Administration Lorazepam 1 mg 12/04/18 12:28 12/04/18 20:22 Ativan Injection - IVPUSH 1 mg Q6H PRN Administration AGITATION Methadone HCl 5 mg 12/06/18 06:00 Dolophine - PO 12/06/18 06:01 ONCE ONE Nystatin 500,000 units 12/05/18 18:00 Nystatin Oral Suspension - PO Q6HPO [facility] Ondansetron HCl 4 mg 12/04/18 21:11 12/05/18 03:21 Zofran Injection IVPUSH 4 mg Q8H PRN Administration NAUSEA Polyethylene Glycol 17 gm 12/04/18 16:30 12/05/18 09:51 Miralax (For Daily Use) - PO Not Given DAILY [facility] Prednisone 40 mg 12/06/18 10:00 Deltasone - PO DAILY [facility] Valproate Sodium 500 mg 12/04/18 22:00 12/05/18 09:51 Depacon Injection - IVPB 500 mg BID [facility] Administration ASSESSMENT AND PLAN: This is a 48 year old man with a history of HTN, type 2 DM, epilepsy, alcohol abuse, heroin abuse, anxiety who was sent to the ED from [facility] with altered mental status. 1. Sepsis and acute hypoxic and hypercapnic respiratory failure secondary to aspiration pneumonia - Continue Levaquin, Clindamycin - Change SoluMedrol to Prednisone 2. HTN - Restart Norvasc 3. Epilepsy - Continue Depacon 4. Type 2 DM - Fingersticks good on no medication 5. Opioid dependence - Continue Methadone detox 6. Continuous alcohol dependence 7. Cocaine dependence 8. Oral candidiasis - Nystatin swish and swallow started 9. Dysphagia - Modified barium swallow shows mild to moderate oropharyngeal dysphagia with risk of aspiration - Dysphagia ground diet with thin liquids started
[2018-12-05] MEDS: NYSTATIN 500,000 UNITS/5 ML SUSPENSION PO SCH (17:17)
[2018-12-05] MEDS: SODIUM CHLORIDE 1,000 ML IV SCH (17:17)
--- NOTE | 2018-12-05 18:08 | PN ---
Physical Exam: SUBJECTIVE: Patient seen and examined at the bedside this AM. Pt complaining of urinating constantly overnight. OBJECTIVE: Vital Signs Period Temp Pulse Resp BP Sys/Stroud Pulse Ox Last 24 Hr 97.2 F-98.6 F 70-116 18-22 128-160/76-108 90-95 GENERAL: The patient is awake, lethargic, in moderate distress. HEAD: Normal with no signs of trauma. NECK: supple. LUNGS: Breath sounds equal, clear to auscultation bilaterally, no wheezes, no crackles, no accessory muscle use. HEART: Regular rate and rhythm, S1, S2 without murmur, rub or gallop. ABDOMEN: Soft, nondistended, no guarding, no rebound. EXTREMITIES: 2+ pulses, warm, well-perfused, no edema. NEUROLOGICAL: Cranial nerves II through XII grossly intact. Normal speech, gait not observed. PSYCH: Normal mood, normal affect. SKIN: Warm, dry, no rashes or lesions noted Active Medications Generic Name Dose Route Start Last Admin Trade Name Vishnuq PRN Reason Stop Dose Admin Albuterol/Ipratropium 1 amp 12/04/18 16:00 12/05/18 16:20 Duoneb - NEB Not Given RQID [facility] Heparin Sodium (Porcine) 5,000 unit 12/04/18 14:00 12/05/18 05:11 Heparin - SQ 5,000 unit TID [facility] Administration Clindamycin Phosphate 600 mg in 50 mls @ 100 mls/hr 12/04/18 18:00 12/05/18 17:03 Cleocin 600 Mg Premix Ivpb - IVPB 100 mls/hr Q8H-IV [facility] Administration Protocol Levofloxacin 500 mg in 100 mls @ 100 mls/hr 12/05/18 10:00 12/05/18 09:02 Levaquin 500 Mg Premixed Ivpb - IVPB 100 mls/hr DAILY [facility] Administration Protocol Sodium Chloride 1,000 mls @ 100 mls/hr 12/04/18 15:30 12/05/18 17:17 Normal Saline - IV 100 mls/hr ASDIR [facility] Administration Lactobacillus Acidophilus 1 tab 12/04/18 10:00 12/05/18 09:00 Bacid - PO 1 tab DAILY [facility] Administration Lorazepam 1 mg 12/04/18 12:28 12/04/18 20:22 Ativan Injection - IVPUSH 1 mg Q6H PRN Administration AGITATION Methadone HCl 5 mg 12/06/18 06:00 Dolophine - PO 12/06/18 06:01 ONCE ONE Nystatin 500,000 units 12/05/18 18:00 12/05/18 17:17 Nystatin Oral Suspension - PO 500,000 units Q6HPO [facility] Administration Ondansetron HCl 4 mg 12/04/18 21:11 12/05/18 03:21 Zofran Injection IVPUSH 4 mg Q8H PRN Administration NAUSEA Polyethylene Glycol 17 gm 12/04/18 16:30 12/05/18 09:51 Miralax (For Daily Use) - PO Not Given DAILY [facility] Prednisone 40 mg 12/06/18 10:00 Deltasone - PO DAILY [facility] Valproate Sodium 500 mg 12/04/18 22:00 12/05/18 09:51 Depacon Injection - IVPB 500 mg BID [facility] Administration ASSESSMENT/PLAN: Patient is a 48 year old male with PMH of IDDM, HTN, epilepsy, alcohol and heroin abuse, and anxiety who was BIBEMS from [facility] with AMS. #Sepsis 2/2 PNA with acute hypercapnic respiratory failure - switched from IV to PO prednisone 40mg daily - continuing levo, clinda - still lethargic and vomiting, urinating alot. - Hydrate with IV NS 100mL/hr #Dysphagia - modified barium swallow by tom bender awaiting full report - Nystatin swish swallow for oral candidiasis - recommends trial of ground food diet #BPH - started on flomax 0.4 HS #Substance abuse - 1mg loraepam q6hPRN, and on methadone 5 mg PO at this time #HTN contuining to hold BP meds #IDDM SSI TIDAC #Epilepsy -continuing depakote po 500mg BID. - on lorazepam - on continuous fall precautions. #FEN Cont IV NS @ 100ml/hr Monitor lytes and replete as needed ground diet #DVT ppx - Heparin SQ #Dispo: continuous monitoring on med surg Visit type - Emergency Visit Emergency Visit: Yes ED Registration Date: 11/30/18 Care time: The patient presented to the Emergency Department on the above date and was hospitalized for further evaluation of their emergent condition. - New Patient This patient is new to me today: No - Critical Care Critical Care patient: No - Discharge Referral Referred to [facility] Med P.C.: No ATTENDING PHYSICIAN STATEMENT I saw and evaluated the patient. I reviewed the resident's note and discussed the case with the resident. I agree with the resident's findings and plan as documented. SUBJECTIVE: OBJECTIVE: ASSESSMENT AND PLAN:
[2018-12-05] MEDS: TAMSULOSIN HCL 0.4 MG CAP PO SCH (21:38)
[2018-12-05] MEDS: LORazepam 2 MG/ML SDV VIAL IVPUSH PRN (21:39)
[2018-12-05] MEDS ORDERED: predniSONE 20 MG TABLET (UD) PO SCH (22:00)
[2018-12-06] MEDS: NYSTATIN 500,000 UNITS/5 ML SUSPENSION PO SCH ×5 (00:07→17:40)
[2018-12-06] MEDS: CLINDAMYCIN 600MG PREMIX IVPB 600 MG/50 ML BAG IVPB SCH ×3 (01:53→17:40)
[2018-12-06] MEDS: LORazepam 2 MG/ML SDV VIAL IVPUSH PRN (04:10)
[2018-12-06] MEDS: METHADONE HCL 5 MG TABLET PO ONE ×2 (06:25→06:45)
[2018-12-06] MEDS: HEPARIN NA (PORCINE) 5,000 UNITS/ML 1ML VIAL SQ SCH ×5 (06:25→21:48)
[2018-12-06] MEDS ORDERED: TAMSULOSIN HCL 0.4 MG CAP PO SCH (08:30)
[2018-12-06 08:45] LABS: BASO % 0.3 % (0-2.0); EOS % 0.8 % (0-4.5); HEMATOCRIT 47.7 % (35.4-49); HEMOGLOBIN 16.3 GM/dL (11.7-16.9); MCH 31.1 pg (25.7-33.7); MCHC 34.2 g/dl (32.0-35.9); MEAN CELL VOLUME 90.9 fl (80-96); MEAN PLT VOLUME 9.8 fl (7.5-11.1); MONO % 8.2 % (3.8-10.2); NEUT % 73.7 % (42.8-82.8); PLATELET COUNT 182 K/MM3 (134-434); RBC 5.24 M/mm3 (4.00-5.60); WHITE BLOOD COUNT 11.7 K/mm3 (4.0-10.0)
[2018-12-06] MEDS: TAMSULOSIN HCL 0.4 MG CAP PO SCH ×2 (09:04→21:48)
[2018-12-06] MEDS: ALBUTEROL SO4 2.5/IPRATROPIUM 0.5 INH SOL 3 ML VIAL.NEB. NEB SCH ×4 (09:04→20:15)
[2018-12-06 09:06] LABS: ALBUMIN 2.8 g/dl (3.4-5.0); BILIRUBIN,TOTAL 0.5 mg/dL (0.2-1); BLOOD UREA NITROGEN 12.3 mg/dL (7-18); CALCIUM 8.9 mg/dL (8.5-10.1); CREATININE 0.7 mg/dL (0.55-1.3); POTASSIUM 3.8 mmol/L (3.5-5.1)
[2018-12-06] MEDS ORDERED: PT OWN MED DRAWER 7, Y5N ONE (10:19)
[2018-12-06] MEDS: LACTOBACILLUS ACIDOPHILUS 1 TABLET PO SCH (10:57)
[2018-12-06] MEDS: predniSONE 20 MG TABLET (UD) PO SCH (10:58)
[2018-12-06] MEDS: VALPROATE SODIUM 500 MG/5 ML VIAL IVPB SCH ×2 (11:05→21:48)
--- NOTE | 2018-12-06 11:59 | PN ---
Progress Note, LIVING SUPERVISOR - Note Progress Note: Selected Entries 12/05/18 12/05/18 12/05/18 00:00 01:54 02:00 Supper Temperature 98.1 F 98.1 F 98.1 F 12/05/18 12/05/18 12/05/18 05:54 06:00 09:54 Supper Temperature 97.9 F 98.5 F 98.5 F 12/05/18 12/05/18 12/05/18 15:20 19:00 22:00 Supper 25% Temperature 98.6 F 98 F 12/05/18 12/06/18 22:53 06:00 Supper Temperature 98.0 F 97.9 F Laboratory Tests 12/04/18 12/06/18 01:35 07:30 WBC 14.3 H 11.7 H Pt on Dysphagia chopped diet, thin liquids. Pieces were too large for pt., including chunks of hamburger. Pt did not receive tray. Tray removed and call placed to Dietary for new tray. Nursing and supervisor weaving made aware. Receiving Nystatin for thrush.
[2018-12-06] MEDS: POLYETHYLENE GLYCOL 3350 119 GM BTL PO SCH (12:09)
--- NOTE | 2018-12-06 15:52 | PN ---
Teaching Attending Note Name of Resident: Ross Wasserman ATTENDING PHYSICIAN STATEMENT I saw and evaluated the patient. I reviewed the resident's note and discussed the case with the resident. I agree with the resident's findings and plan as documented. SUBJECTIVE: Patient lethargic. OBJECTIVE: Vital Signs Period Temp Pulse Resp BP Sys/Stroud Pulse Ox Last 24 Hr 97.8 F-98.0 F 89-110 18-18 106-142/71-75 92 HEART: S1S2, RRR LUNGS: Clear ABDOMEN: Soft, non-tender, non-distended, normal BS EXTREMITIES: No edema Laboratory Results - last 24 hr 12/06/18 12/06/18 07:30 07:30 WBC 11.7 H RBC 5.24 Hgb 16.3 Hct 47.7 MCV 90.9 MCH 31.1 MCHC 34.2 RDW 13.0 Plt Count 182 MPV 9.8 Absolute Neuts (auto) 8.6 H Neutrophils % 73.7 Lymphocytes % 17.0 D Monocytes % 8.2 D Eosinophils % 0.8 D Basophils % 0.3 Nucleated RBC % 0 Sodium 143 Potassium 3.8 Chloride 105 Carbon Dioxide 29 Anion Gap 8 BUN 12.3 Creatinine 0.7 Est GFR (CKD-EPI)AfAm 128.43 Est GFR (CKD-EPI)NonAf 110.81 Random Glucose 62 L Calcium 8.9 Total Bilirubin 0.5 AST 14 L ALT 19 Alkaline Phosphatase 69 Total Protein 6.0 L Albumin 2.8 L Current Medications Generic Name Dose Route Start Last Admin Trade Name Freq PRN Reason Stop Dose Admin Albuterol/Ipratropium 1 amp 12/04/18 16:00 12/06/18 12:01 Duoneb - NEB Not Given RQID MARAL Heparin Sodium (Porcine) 5,000 unit 12/04/18 14:00 12/06/18 14:55 Heparin - SQ 5,000 unit TID MARAL Administration Clindamycin Phosphate 600 mg in 50 mls @ 100 mls/hr 12/04/18 18:00 12/06/18 10:58 Cleocin 600 Mg Premix Ivpb - IVPB 100 mls/hr Q8H-IV MARAL Administration Protocol Levofloxacin 500 mg in 100 mls @ 100 mls/hr 12/05/18 10:00 12/06/18 10:58 Levaquin 500 Mg Premixed Ivpb - IVPB 100 mls/hr DAILY MARAL Administration Protocol Sodium Chloride 1,000 mls @ 100 mls/hr 12/04/18 15:30 12/05/18 17:17 Normal Saline - IV 100 mls/hr ASDIR MARAL Administration Lactobacillus Acidophilus 1 tab 12/04/18 10:00 12/06/18 10:57 Bacid - PO 1 tab DAILY MARAL Administration Lorazepam 1 mg 12/04/18 12:28 12/06/18 04:10 Ativan Injection - IVPUSH 1 mg Q6H PRN Administration AGITATION Nystatin 500,000 units 12/05/18 18:00 12/06/18 12:09 Nystatin Oral Suspension - PO 500,000 units Q6HPO MARAL Administration Ondansetron HCl 4 mg 12/04/18 21:11 12/05/18 03:21 Zofran Injection IVPUSH 4 mg Q8H PRN Administration NAUSEA Polyethylene Glycol 17 gm 12/04/18 16:30 12/06/18 12:09 Miralax (For Daily Use) - PO 17 grams DAILY MARAL Administration Prednisone 40 mg 12/06/18 10:00 12/06/18 10:58 Deltasone - PO 40 mg DAILY MARAL Administration Tamsulosin HCl 0.4 mg 12/05/18 18:30 12/06/18 09:04 Flomax - PO Not Given HS MARAL Valproate Sodium 500 mg 12/04/18 22:00 12/06/18 11:05 Depacon Injection - IVPB 500 mg BID MARAL Administration ASSESSMENT AND PLAN: This is a 48 year old man with a history of HTN, type 2 DM, epilepsy, alcohol abuse, heroin abuse, anxiety who was sent to the ED from [facility] with altered mental status. 1. Sepsis and acute hypoxic and hypercapnic respiratory failure secondary to aspiration pneumonia - Continue Levaquin, Clindamycin, Prednisone 2. HTN - Restart Norvasc 3. Epilepsy - Continue Depacon 4. Type 2 DM - Fingersticks good on no medication 5. Opioid dependence - Completed Methadone detox today 6. Continuous alcohol dependence 7. Cocaine dependence 8. Oral candidiasis - Continue Nystatin swish and swallow 9. Dysphagia - Modified barium swallow shows mild to moderate oropharyngeal dysphagia with risk of aspiration - Continue dysphagia chopped diet with thin liquids
--- NOTE | 2018-12-06 18:39 | PN ---
Physical Exam: SUBJECTIVE: Patient seen and examined OBJECTIVE: Vital Signs Period Temp Pulse Resp BP Sys/Stroud Pulse Ox Last 24 Hr 97.8 F-98.0 F 89-110 18-18 106-142/71-75 92-92 GENERAL: The patient is lethargic, mumbling, confused. HEAD: Normal with no signs of trauma. NECK: supple. LUNGS: Breath sounds equal, clear to auscultation bilaterally, no wheezes, no crackles, no accessory muscle use. HEART: Regular rate and rhythm, S1, S2 without murmur, rub or gallop. ABDOMEN: Soft, slightly tender, nondistended, normoactive bowel sounds, no guarding, no rebound. EXTREMITIES: warm, well-perfused, no edema. NEUROLOGICAL: Cranial nerves II through XII grossly intact. Normal speech, gait not observed. PSYCH: Normal mood, normal affect. SKIN: Warm, dry, no rashes or lesions noted Laboratory Results - last 24 hr 12/06/18 12/06/18 07:30 07:30 WBC 11.7 H RBC 5.24 Hgb 16.3 Hct 47.7 MCV 90.9 MCH 31.1 MCHC 34.2 RDW 13.0 Plt Count 182 MPV 9.8 Absolute Neuts (auto) 8.6 H Neutrophils % 73.7 Lymphocytes % 17.0 D Monocytes % 8.2 D Eosinophils % 0.8 D Basophils % 0.3 Nucleated RBC % 0 Sodium 143 Potassium 3.8 Chloride 105 Carbon Dioxide 29 Anion Gap 8 BUN 12.3 Creatinine 0.7 Est GFR (CKD-EPI)AfAm 128.43 Est GFR (CKD-EPI)NonAf 110.81 Random Glucose 62 L Calcium 8.9 Total Bilirubin 0.5 AST 14 L ALT 19 Alkaline Phosphatase 69 Total Protein 6.0 L Albumin 2.8 L Active Medications Generic Name Dose Route Start Last Admin Trade Name Freq PRN Reason Stop Dose Admin Albuterol/Ipratropium 1 amp 12/04/18 16:00 12/06/18 16:14 Duoneb - NEB Not Given RQID MARAL Amlodipine Besylate 5 mg 12/07/18 10:00 Norvasc - PO DAILY MARAL Folic Acid 1 mg 12/06/18 18:00 Folic Acid - PO DAILY MARAL Heparin Sodium (Porcine) 5,000 unit 12/04/18 14:00 12/06/18 14:55 Heparin - SQ 5,000 unit TID MARAL Administration Clindamycin Phosphate 600 mg in 50 mls @ 100 mls/hr 12/04/18 18:00 12/06/18 17:40 Cleocin 600 Mg Premix Ivpb - IVPB 100 mls/hr Q8H-IV MARAL Administration Protocol Levofloxacin 500 mg in 100 mls @ 100 mls/hr 12/05/18 10:00 12/06/18 10:58 Levaquin 500 Mg Premixed Ivpb - IVPB 100 mls/hr DAILY MARAL Administration Protocol Sodium Chloride 1,000 mls @ 100 mls/hr 12/04/18 15:30 12/05/18 17:17 Normal Saline - IV 100 mls/hr ASDIR MARAL Administration Lactobacillus Acidophilus 1 tab 12/04/18 10:00 12/06/18 10:57 Bacid - PO 1 tab DAILY MARAL Administration Lorazepam 1 mg 12/04/18 12:28 12/06/18 04:10 Ativan Injection - IVPUSH 1 mg Q6H PRN Administration AGITATION Multivitamins/Minerals/Vitamin C 1 tab 12/06/18 18:00 Tab-A-Vit - PO DAILY MARAL Nystatin 500,000 units 12/05/18 18:00 12/06/18 17:40 Nystatin Oral Suspension - PO 500,000 units Q6HPO MARAL Administration Ondansetron HCl 4 mg 12/04/18 21:11 12/05/18 03:21 Zofran Injection IVPUSH 4 mg Q8H PRN Administration NAUSEA Polyethylene Glycol 17 gm 12/04/18 16:30 12/06/18 12:09 Miralax (For Daily Use) - PO 17 grams DAILY MARAL Administration Prednisone 40 mg 12/06/18 10:00 12/06/18 10:58 Deltasone - PO 40 mg DAILY MARAL Administration Tamsulosin HCl 0.4 mg 12/05/18 18:30 12/06/18 09:04 Flomax - PO Not Given HS MARAL Thiamine HCl 100 mg 12/06/18 18:00 Vitamin B1 - PO DAILY MARAL Valproate Sodium 500 mg 12/04/18 22:00 12/06/18 11:05 Depacon Injection - IVPB 500 mg BID MARAL Administration ASSESSMENT/PLAN: Patient is a 48 year old male with PMH of IDDM, HTN, epilepsy, alcohol and heroin abuse, and anxiety who was BIBEMS from [facility] with AMS. #Sepsis 2/2 PNA with acute hypercapnic respiratory failure - switched from IV to PO prednisone 40mg daily - continuing levo, clinda - fall risk, continuos monitoring - Hydrate with IV NS 100mL/hr #Dysphagia - modified barium swallow by tom bender- shows some dysphagia and order ground food diet - Nystatin swish swallow for oral candidiasis - pt eating well today #BPH - started on flomax 0.4 HS - less urination #Substance abuse - 1mg lorazepam q6h PRN, and finished methadone today. #HTN contuining to hold BP meds #IDDM SSI TIDAC #Epilepsy -continuing depakote po 500mg BID. - on lorazepam - on continuous fall precautions. - confused, mumbling, forgetful but less lethargic will monitor after methadone stopped. - CT negative #FEN Cont IV NS @ 100ml/hr Monitor lytes and replete as needed ground diet #DVT ppx - Heparin SQ #Dispo: continuous monitoring on med surg Visit type - Emergency Visit Emergency Visit: Yes ED Registration Date: 11/30/18 Care time: The patient presented to the Emergency Department on the above date and was hospitalized for further evaluation of their emergent condition. - New Patient This patient is new to me today: No - Critical Care Critical Care patient: No - Discharge Referral Referred to [facility] No ATTENDING PHYSICIAN STATEMENT I saw and evaluated the patient. I reviewed the resident's note and discussed the case with the resident. I agree with the resident's findings and plan as documented. SUBJECTIVE: OBJECTIVE: ASSESSMENT AND PLAN:
[2018-12-06] MEDS: SODIUM CHLORIDE 1,000 ML IV SCH (19:18)
[2018-12-06] MEDS: MULTIVITAMINS (DAILY MVI) TABLET (FP) PO SCH (19:18)
[2018-12-06] MEDS: FOLIC ACID 1 MG TABLET (FP) PO SCH (19:18)
[2018-12-06] MEDS: THIAMINE HCL 100 MG TABLET (FP) PO SCH (19:18)
[2018-12-06] MEDS: ONDANSETRON 4 MG/2 ML VIAL IVPUSH PRN (19:31)
[2018-12-07] MEDS: NYSTATIN 500,000 UNITS/5 ML SUSPENSION PO SCH ×4 (02:32→18:24)
[2018-12-07] MEDS: CLINDAMYCIN 600MG PREMIX IVPB 600 MG/50 ML BAG IVPB SCH ×3 (02:35→18:24)
[2018-12-07] MEDS: HEPARIN NA (PORCINE) 5,000 UNITS/ML 1ML VIAL SQ SCH ×3 (06:26→22:14)
[2018-12-07] MEDS ORDERED: ACETAMINOPHEN 325 MG TABLET (FP) PO PRN (07:26)
[2018-12-07] MEDS: ALBUTEROL SO4 2.5/IPRATROPIUM 0.5 INH SOL 3 ML VIAL.NEB. NEB SCH ×4 (07:44→20:53)
[2018-12-07] MEDS ORDERED: PT OWN MED DRAWER 7, Y5N ONE (10:38)
[2018-12-07] MEDS: VALPROATE SODIUM 500 MG/5 ML VIAL IVPB SCH (10:48)
--- NOTE | 2018-12-07 11:59 | PN ---
Progress Note, OBSERVER GRAVITY PROSPECTING - Note Progress Note: Selected Entries 12/06/18 12/06/18 12/06/18 06:00 12:03 15:17 Breakfast 75% Lunch 25% Temperature 97.9 F 97.8 F 12/07/18 12/07/18 07:00 10:00 Breakfast 50% Lunch 25% Temperature 98.2 F Laboratory Tests 12/04/18 12/06/18 01:35 07:30 WBC 14.3 H 11.7 H Awake. Sitting up in bed, feeding himself Eating lunch with good tolerance. c/o throat pain. On Nystatin. Reviewed with Nursing.
[2018-12-07] MEDS: MULTIVITAMINS (DAILY MVI) TABLET (FP) PO SCH (12:38)
[2018-12-07] MEDS: FOLIC ACID 1 MG TABLET (FP) PO SCH (12:39)
[2018-12-07] MEDS: predniSONE 20 MG TABLET (UD) PO SCH (12:39)
[2018-12-07] MEDS: RANITIDINE HCL 150 MG TABLET (FP) PO SCH ×2 (12:39→22:16)
[2018-12-07] MEDS: amLODIPine BESYLATE 5 MG TABLET (FP) PO SCH (12:39)
[2018-12-07] MEDS: LACTOBACILLUS ACIDOPHILUS 1 TABLET PO SCH (12:40)
[2018-12-07] MEDS: THIAMINE HCL 100 MG TABLET (FP) PO SCH (12:40)
[2018-12-07] MEDS: POLYETHYLENE GLYCOL 3350 119 GM BTL PO SCH (12:41)
--- NOTE | 2018-12-07 16:08 | PN ---
Physical Exam: SUBJECTIVE: Patient seen and examined at bedside this AM. Pt lethargic still but improving, he ate his lunch but not dinner day before. OBJECTIVE: Vital Signs Period Temp Pulse Resp BP Sys/Stroud Pulse Ox Last 24 Hr 97.4 F-98.2 F 76-77 18-18 112-134/68-74 92 GENERAL: The patient is awake, alert, and fully oriented, in no acute distress. HEAD: Normal with no signs of trauma. NECK: supple. LUNGS: Breath sounds equal, coughing, slight wheezing on bases b/l HEART: Regular rate and rhythm, S1, S2 without murmur, rub or gallop. ABDOMEN: Soft, nontender, nondistended, normoactive bowel sounds, no guarding, no rebound. EXTREMITIES: 2+ pulses, warm, well-perfused, no edema. NEUROLOGICAL: pt noncompliant for a neuro exam at this time, gait not observed and speech difficult to understand patient. PSYCH: Lethargic improving, somewhat responsive to commands. SKIN: Warm, dry, no rashes or lesions noted Active Medications Generic Name Dose Route Start Last Admin Trade Name Freq PRN Reason Stop Dose Admin Acetaminophen 650 mg 12/07/18 07:26 Tylenol - PO Q6H PRN HEADACHE Albuterol/Ipratropium 1 amp 12/04/18 16:00 12/07/18 16:01 Duoneb - NEB Not Given RQID MARAL Amlodipine Besylate 5 mg 12/07/18 10:00 12/07/18 12:39 Norvasc - PO 5 mg DAILY MARAL Administration Folic Acid 1 mg 12/06/18 18:00 12/07/18 12:39 Folic Acid - PO 1 mg DAILY MARAL Administration Heparin Sodium (Porcine) 5,000 unit 12/04/18 14:00 12/07/18 15:25 Heparin - SQ 5,000 unit TID MARAL Administration Clindamycin Phosphate 600 mg in 50 mls @ 100 mls/hr 12/04/18 18:00 12/07/18 10:48 Cleocin 600 Mg Premix Ivpb - IVPB 100 mls/hr Q8H-IV MARAL Administration Protocol Levofloxacin 500 mg in 100 mls @ 100 mls/hr 12/05/18 10:00 12/07/18 10:48 Levaquin 500 Mg Premixed Ivpb - IVPB 100 mls/hr DAILY MARAL Administration Protocol Sodium Chloride 1,000 mls @ 100 mls/hr 12/04/18 15:30 12/06/18 19:18 Normal Saline - IV Not Given ASDIR MARAL Lactobacillus Acidophilus 1 tab 12/04/18 10:00 12/07/18 12:40 Bacid - PO 1 tab DAILY MARAL Administration Lorazepam 1 mg 12/04/18 12:28 12/06/18 04:10 Ativan Injection - IVPUSH 1 mg Q6H PRN Administration AGITATION Multivitamins/Minerals/Vitamin C 1 tab 12/06/18 18:00 12/07/18 12:38 Tab-A-Vit - PO 1 tab DAILY MARAL Administration Nystatin 500,000 units 12/05/18 18:00 12/07/18 12:41 Nystatin Oral Suspension - PO 500,000 units Q6HPO MARAL Administration Ondansetron HCl 4 mg 12/04/18 21:11 12/06/18 19:31 Zofran Injection IVPUSH 4 mg Q8H PRN Administration NAUSEA Polyethylene Glycol 17 gm 12/04/18 16:30 12/07/18 12:41 Miralax (For Daily Use) - PO Not Given DAILY MARAL Prednisone 40 mg 12/06/18 10:00 12/07/18 12:39 Deltasone - PO 40 mg DAILY MARAL Administration Ranitidine HCl 150 mg 12/07/18 10:00 12/07/18 12:39 Zantac - PO 150 mg BID MARAL Administration Tamsulosin HCl 0.4 mg 12/05/18 18:30 12/06/18 21:48 Flomax - PO 0.4 mg HS MARAL Administration Thiamine HCl 100 mg 12/06/18 18:00 12/07/18 12:40 Vitamin B1 - PO 100 mg DAILY MARAL Administration Valproate Sodium 500 mg 12/04/18 22:00 12/07/18 10:48 Depacon Injection - IVPB 500 mg BID MARAL Administration ASSESSMENT/PLAN: Patient is a 48 year old male with PMH of IDDM, HTN, epilepsy, alcohol and heroin abuse, and anxiety who was BIBEMS from [facility] with AMS. #Sepsis 2/2 PNA with acute hypercapnic respiratory failure - spoke with Dr. Mary- stop prednisone was the recommendation based on Dr. Dhillon' s most recent note. - spoke with Dr. schafer- pt completed his abx course will monitor off abx - fall risk, continuos monitoring - Hydrate with IV NS 100mL/hr #Dysphagia/lethargy - modified barium swallow by tom bender- shows some dysphagia and order ground food diet - Nystatin swish swallow for oral candidiasis - pt eating well today - unsure why pt still lethargic off methadone, may consider neuro consult. #BPH - started on flomax 0.4 HS - less urination #Substance abuse - 1mg lorazepam q6h PRN, and finished methadone today. #HTN contuining to hold BP meds #IDDM SSI TIDAC #Epilepsy -continuing depakote po 500mg BID. - on lorazepam - on continuous fall precautions. #FEN Cont IV NS @ 100ml/hr Monitor lytes and replete as needed ground diet #DVT ppx - Heparin SQ #Dispo: continuous monitoring on med surg Visit type - Emergency Visit Emergency Visit: Yes ED Registration Date: 11/30/18 Care time: The patient presented to the Emergency Department on the above date and was hospitalized for further evaluation of their emergent condition. - New Patient This patient is new to me today: No - Critical Care Critical Care patient: No - Discharge Referral Referred to [facility] No ATTENDING PHYSICIAN STATEMENT I saw and evaluated the patient. I reviewed the resident's note and discussed the case with the resident. I agree with the resident's findings and plan as documented. SUBJECTIVE: OBJECTIVE: ASSESSMENT AND PLAN:
[2018-12-07 18:23] LABS: ARTERIAL BLD GAS O2 SATURATION 91.9 % (95-98); ARTERIAL BLOOD GAS BASE EXCESS 3.2 meq/l (-2-2); ARTERIAL BLOOD GAS PO2 65.3 mmHg (80-100); ARTERIAL BLOOD GAS pH 7.45 (7.35-7.45)
[2018-12-07] MEDS: SODIUM CHLORIDE 1,000 ML IV SCH (18:24)
[2018-12-07 18:32] LABS: ALLENS TEST POSITIVE
--- NOTE | 2018-12-07 18:32 | PN ---
Teaching Attending Note Name of Resident: Wendy Kilgore ATTENDING PHYSICIAN STATEMENT I saw and evaluated the patient. I reviewed the resident's note and discussed the case with the resident. I agree with the resident's findings and plan as documented. SUBJECTIVE: no pain, has cough, no SOB. reports living in a [facility], had a rolling walker in past OBJECTIVE: NAD, awake, slwo. knows his age, location , and details about his situation CV: RRR Lungs: CTAB , decreased breath sounds at bases Ext , no edema ASSESSMENT AND PLAN: 48 y/o man with h/o alcoholism, polysubstance abuse, HTN, reported DM , who presented [facility] with AMS and was found to have PNA and acute resp failure. was intubated and then extubated 1- Acute hypoxic resp failure, resolved 2- CAP Vs aspiration PNA. day 8 of Abx. no fever, cxray reviewed. no signs of sepsis. persistent leukocytosis could be due to steroids - dc Abx - dc IVF 3- Lethargy, metabolic encephalopathy due to meds, and acute illness. MRI reviewed. mental status improved. monitor closely . avoid sedatives. obtain ABG, r/o hypercapnia 4- Polysubstance abuse: finished methadone. no signs of ETOH withdrawal .last dose of ativan yesterday at 4 am . dc ativan he is interested in drug rehab 5- H/o Seizures. change valproic to PO PT eval interested in drug rehab
[2018-12-07] MEDS: DIVALPROEX SODIUM 500 MG TABLET E.C. PO SCH (22:16)
[2018-12-07] MEDS: TAMSULOSIN HCL 0.4 MG CAP PO SCH (22:16)
[2018-12-08] MEDS: NYSTATIN 500,000 UNITS/5 ML SUSPENSION PO SCH ×4 (00:25→18:37)
[2018-12-08] MEDS: CLINDAMYCIN 600MG PREMIX IVPB 600 MG/50 ML BAG IVPB SCH (02:35)
[2018-12-08] MEDS ORDERED: guaiFENesin 200 MG/10 ML 10 ML UNIT-DOSE CUPS PO ONE (04:46)
[2018-12-08] MEDS: HEPARIN NA (PORCINE) 5,000 UNITS/ML 1ML VIAL SQ SCH ×3 (06:40→22:54)
[2018-12-08] MEDS: ALBUTEROL SO4 2.5/IPRATROPIUM 0.5 INH SOL 3 ML VIAL.NEB. NEB SCH ×4 (07:35→19:39)
[2018-12-08 09:40] LABS: BASO % 0.5 % (0-2.0); EOS % 0.8 % (0-4.5); HEMATOCRIT 47.5 % (35.4-49); HEMOGLOBIN 16.4 GM/dL (11.7-16.9); LYMPH % 27.5 % (8-40); MCHC 34.4 g/dl (32.0-35.9); MEAN CELL VOLUME 90.1 fl (80-96); MEAN PLT VOLUME 9.1 fl (7.5-11.1); MONO % 13.9 % (3.8-10.2); NEUT % 57.3 % (42.8-82.8); PLATELET COUNT 277 K/MM3 (134-434); RBC 5.28 M/mm3 (4.00-5.60); WHITE BLOOD COUNT 7.6 K/mm3 (4.0-10.0)
[2018-12-08] MEDS: RANITIDINE HCL 150 MG TABLET (FP) PO SCH ×2 (10:01→22:54)
[2018-12-08] MEDS: FOLIC ACID 1 MG TABLET (FP) PO SCH (10:01)
[2018-12-08] MEDS: LACTOBACILLUS ACIDOPHILUS 1 TABLET PO SCH (10:01)
[2018-12-08] MEDS: amLODIPine BESYLATE 5 MG TABLET (FP) PO SCH (10:01)
[2018-12-08] MEDS: MULTIVITAMINS (DAILY MVI) TABLET (FP) PO SCH (10:01)
[2018-12-08] MEDS: DIVALPROEX SODIUM 500 MG TABLET E.C. PO SCH ×2 (10:01→23:09)
[2018-12-08 10:08] LABS: ALBUMIN 3.6 g/dl (3.4-5.0); BILIRUBIN,TOTAL 0.4 mg/dL (0.2-1); BLOOD UREA NITROGEN 15.3 mg/dL (7-18); CALCIUM 9.7 mg/dL (8.5-10.1); CREATININE 0.9 mg/dL (0.55-1.3); POTASSIUM 3.9 mmol/L (3.5-5.1); TOT PROT 7.2 g/dl (6.4-8.2)
--- NOTE | 2018-12-08 11:57 | PN ---
Progress Note, PHARMACEUTICAL REPRESENTATIVE - Note Progress Note: Selected Entries 12/07/18 12/07/18 12/07/18 07:00 10:00 15:00 Breakfast 50% Lunch 25% Temperature 98.2 F 97.4 F L 12/07/18 12/08/18 19:00 05:39 Breakfast Lunch Temperature 98.8 F 98.6 F Laboratory Tests 12/04/18 12/06/18 12/08/18 01:35 07:30 08:40 WBC 14.3 H 11.7 H 7.6 Pt tolerating diet. Pending discharge
[2018-12-08] MEDS: POLYETHYLENE GLYCOL 3350 119 GM BTL PO SCH (12:50)
[2018-12-08] MEDS: THIAMINE HCL 100 MG TABLET (FP) PO SCH (12:50)
--- NOTE | 2018-12-08 15:48 | PN ---
Teaching Attending Note Name of Resident: Ross Wasserman ATTENDING PHYSICIAN STATEMENT I saw and evaluated the patient. I reviewed the resident's note and discussed the case with the resident. I agree with the resident's findings and plan as documented. SUBJECTIVE: no pain . coughed and vomited this am OBJECTIVE: NAD, awake, cooperative. walkative CV: RRR Lungs: CTAB , decreased breath sounds at bases Ext , no edema ASSESSMENT AND PLAN: 48 y/o man with h/o alcoholism, polysubstance abuse, HTN, reported DM , who presented [facility] with AMS and was found to have PNA and acute resp failure. was intubated and then extubated 1- Acute hypoxic resp failure, resolved 2- CAP Vs aspiration PNA. finished abx course 3- metabolic encephalopathy: due to meds. resolved . 4- Polysubstance abuse: finished methadone. no signs of ETOH withdrawal.he is not interested in drug rehab any more and wants to go to his group home 5- H/o Seizures. cont hoem valproic acid dispo : DC
[2018-12-08] MEDS: TAMSULOSIN HCL 0.4 MG CAP PO SCH (22:54)
[2018-12-09] MEDS: NYSTATIN 500,000 UNITS/5 ML SUSPENSION PO SCH ×2 (01:52→06:28)
[2018-12-09 06:23] VITALS: BP 103/52; PULSE 79; TEMP 98.4
[2018-12-09] MEDS: HEPARIN NA (PORCINE) 5,000 UNITS/ML 1ML VIAL SQ SCH (06:28)
[2018-12-09 11:31] VITALS: BMI 20.7
== END 2018-12-09 09:52 | disposition home or self-care (01) | DRG 720 ==
LOC: JER 18:08 → JERBED 21:07 → JICU 12-01 04:03 → J6S 12-04 12:11
PROVIDERS: ADMIT Internal Medicine; ATTEND Internal Medicine
PROC: 5A09357 Assistance with Respiratory Ventilation, Less than 24 Consecutive Hours, Continuous Positive Airway Pressure (ICD-10-PCS; 2018-11-30)
PROC: 5A1945Z Respiratory Ventilation, 24-96 Consecutive Hours (ICD-10-PCS; 2018-11-30)
PROC: 0CHY7BZ Insertion of Airway into Mouth and Throat, Via Natural or Artificial Opening (ICD-10-PCS; 2018-11-30)
PROC: HZ2ZZZZ Detoxification Services for Substance Abuse Treatment (ICD-10-PCS; principal; 2018-12-03)
DX: A41.9 Sepsis, unspecified organism (principal); J96.01 Acute respiratory failure with hypoxia; J96.02 Acute respiratory failure with hypercapnia; J69.0 Pneumonitis due to inhalation of food and vomit; R56.9 Unspecified convulsions; E87.2 Acidosis; S09.90XA Unspecified injury of head, initial encounter; F14.20 Cocaine dependence, uncomplicated; F25.9 Schizoaffective disorder, unspecified; F11.20 Opioid dependence, uncomplicated; R13.10 Dysphagia, unspecified; B37.0 Candidal stomatitis; E11.9 Type 2 diabetes mellitus without complications; T40.1X1A Poisoning by heroin, accidental (unintentional), initial encounter; Z88.0 Allergy status to penicillin; Z79.4 Long term (current) use of insulin; F12.10 Cannabis abuse, uncomplicated; F10.20 Alcohol dependence, uncomplicated; W01.0XXA Fall on same level from slipping, tripping and stumbling without subsequent striking against object, initial encounter; Y93.89 Activity, other specified; Y92.230 Patient room in hospital as the place of occurrence of the external cause; Y99.8 Other external cause status
CPT/HCPCS: 36415; 36600; 70450-TC; 71045-TC-FY; 74230-TC-FY; 80053; 80307; 81003; 82375; 82803; 82962; 83050; 83605; 83735; 84100; 84484; 85025; 85027; 87040; 87070; 87086; 87205; 87899; 92611-GN; 93005; 93010; 93306-TC; 94002; 94640; 94660; 97116-GP; 97161-GP; 99285-25; J1644; J7030

== ENCOUNTER 2022-01-19 18:48 | Inpatient (IN) | payer OTHER ==
[2022-01-19 20:27] VITALS: BMI 25.7
[2022-01-19] MEDS ORDERED: NICOTINE POLACRILEX 2 MG GUM BUC PRN (21:01)
[2022-01-19] MEDS ORDERED: P-EPHED 60MG/TRIPROLIDI 2.5MG TABLET PO PRN (21:01)
[2022-01-19] MEDS ORDERED: BENZOCAINE/MENTHOL (CHLORASEPTIC ) LOZENGE MM PRN (21:01)
[2022-01-19] MEDS ORDERED: MAGNESIUM HYDROX 2400MG/30ML ORAL SUSPENSION 30 ML CUP PO PRN (21:01)
[2022-01-19] MEDS ORDERED: guaiFENesin 200 MG/10 ML 10 ML UNIT-DOSE CUPS PO PRN (21:01)
[2022-01-19] MEDS ORDERED: MAGNESIUM CITRATE 300 ML BOTTLE PO PRN (21:01)
[2022-01-19] MEDS ORDERED: LOPERAMIDE HCL 2 MG CAPSULE PO PRN (21:01)
[2022-01-19] MEDS ORDERED: ALBUTEROL SO4 0.083% IH SOL 2.5 MG/3 ML VIAL.NEB. NEB PRN (21:42)
[2022-01-19] MEDS ORDERED: ALBUTEROL SO4 HFA INHALER IH PRN (21:42)
[2022-01-19] MEDS: THIAMINE HCL 100 MG TABLET (FP) PO SCH (22:53)
[2022-01-19] MEDS: DIVALPROEX SODIUM 500 MG TABLET E.C. PO SCH (22:53)
[2022-01-19] MEDS: amLODIPine BESYLATE 10 MG TABLET (FP) PO SCH (22:53)
[2022-01-19] MEDS: MELATONIN 5 MG TABLETS PO PRN (22:55)
[2022-01-19] MEDS: INSULIN SLIDING SCALE (NOVOLOG) 1 VIAL SQ SCH (22:57)
[2022-01-20] MEDS: DIVALPROEX SODIUM 500 MG TABLET E.C. PO SCH ×3 (06:36→23:08)
[2022-01-20] MEDS: INSULIN SLIDING SCALE (NOVOLOG) 1 VIAL SQ SCH ×4 (06:43→23:09)
[2022-01-20] MEDS: PRENATAL VITAMINS W/ FOLIC ACID TABLET (FP) PO SCH (09:35)
[2022-01-20] MEDS: amLODIPine BESYLATE 10 MG TABLET (FP) PO SCH (09:35)
[2022-01-20] MEDS ORDERED: levoFLOXacin 750 MG TABLET PO SCH (10:00)
[2022-01-20] MEDS ORDERED: GLUCAGON 1 MG KIT IM ONE (12:45)
[2022-01-20] MEDS: THIAMINE HCL 100 MG TABLET (FP) PO SCH (23:09)
[2022-01-20] MEDS: PHENYTOIN NA EXTENDED 100 MG CAPSULE (FP) PO SCH (23:09)
[2022-01-21] MEDS: DIVALPROEX SODIUM 500 MG TABLET E.C. PO SCH ×3 (06:43→22:09)
[2022-01-21] MEDS: INSULIN SLIDING SCALE (NOVOLOG) 1 VIAL SQ SCH ×4 (06:45→22:15)
[2022-01-21] MEDS: PRENATAL VITAMINS W/ FOLIC ACID TABLET (FP) PO SCH (10:53)
[2022-01-21] MEDS: amLODIPine BESYLATE 10 MG TABLET (FP) PO SCH (10:53)
[2022-01-21] MEDS: PHENYTOIN NA EXTENDED 100 MG CAPSULE (FP) PO SCH ×2 (10:53→22:09)
[2022-01-21] MEDS: THIAMINE HCL 100 MG TABLET (FP) PO SCH (22:09)
[2022-01-21] MEDS: MELATONIN 5 MG TABLETS PO PRN (22:09)
[2022-01-22] MEDS: DIVALPROEX SODIUM 500 MG TABLET E.C. PO SCH ×3 (06:19→21:27)
[2022-01-22] MEDS: INSULIN SLIDING SCALE (NOVOLOG) 1 VIAL SQ SCH ×4 (06:20→21:32)
[2022-01-22] MEDS: PHENYTOIN NA EXTENDED 100 MG CAPSULE (FP) PO SCH (09:11)
[2022-01-22] MEDS: PRENATAL VITAMINS W/ FOLIC ACID TABLET (FP) PO SCH (09:12)
[2022-01-22] MEDS: amLODIPine BESYLATE 10 MG TABLET (FP) PO SCH (09:13)
[2022-01-22 18:26] LABS: URINE APPEARANCE CLEAR; URINE BILIRUBIN NEGATIVE (NEGATIVE); URINE COLOR YELLOW; URINE GLUCOSE (UA) NEGATIVE (NEGATIVE); URINE KETONE TRACE (NEGATIVE); URINE LEUK ESTERASE NEGATIVE (NEGATIVE); URINE NITRITE NEGATIVE (NEGATIVE); URINE PROTEIN NEGATIVE (NEGATIVE); URINE UROBILINOGEN 0.2 mg/dL (0.2-1.0)
[2022-01-22] MEDS: MELATONIN 5 MG TABLETS PO PRN (21:28)
[2022-01-22] MEDS: THIAMINE HCL 100 MG TABLET (FP) PO SCH (21:28)
[2022-01-22] MEDS ORDERED: INSULIN (NOVOLOG) ASPART 100 UNITS/ML 10ML VIAL ONE (22:14)
[2022-01-23] MEDS: DIVALPROEX SODIUM 500 MG TABLET E.C. PO SCH ×3 (06:24→21:08)
[2022-01-23] MEDS: INSULIN SLIDING SCALE (NOVOLOG) 1 VIAL SQ SCH ×4 (06:25→21:12)
[2022-01-23] MEDS: amLODIPine BESYLATE 10 MG TABLET (FP) PO SCH (09:54)
[2022-01-23] MEDS: PRENATAL VITAMINS W/ FOLIC ACID TABLET (FP) PO SCH (09:54)
[2022-01-23] MEDS ORDERED: NICOTINE 7 MG/24 HOURS TOPICAL PATCH TD PRN (14:20)
[2022-01-23] MEDS ORDERED: NICOTINE 10 MG CARTRIDGE (INHALER) IH PRN (14:53)
[2022-01-23] MEDS ORDERED: AMITRIPTYLINE HCL 10 MG TABLET PO ONE (17:00)
[2022-01-23] MEDS: MELATONIN 5 MG TABLETS PO PRN (21:07)
[2022-01-23] MEDS: THIAMINE HCL 100 MG TABLET (FP) PO SCH (21:07)
[2022-01-23] MEDS: SULFAMETHOXAZOLE/TRIMETHOPRIM 800MG/160MG D.S. TABLET PO SCH (21:09)
[2022-01-24] MEDS: DIVALPROEX SODIUM 500 MG TABLET E.C. PO SCH ×3 (06:18→21:12)
[2022-01-24] MEDS: INSULIN SLIDING SCALE (NOVOLOG) 1 VIAL SQ SCH ×4 (06:20→21:12)
[2022-01-24] MEDS: amLODIPine BESYLATE 10 MG TABLET (FP) PO SCH (09:57)
[2022-01-24] MEDS: SULFAMETHOXAZOLE/TRIMETHOPRIM 800MG/160MG D.S. TABLET PO SCH ×2 (09:57→21:12)
[2022-01-24] MEDS: PRENATAL VITAMINS W/ FOLIC ACID TABLET (FP) PO SCH (09:57)
[2022-01-24] MEDS ORDERED: METHOCARBAMOL 500 MG TABLET PO ONE (19:16)
[2022-01-24] MEDS: MELATONIN 5 MG TABLETS PO PRN (21:11)
[2022-01-24] MEDS: THIAMINE HCL 100 MG TABLET (FP) PO SCH (21:12)
[2022-01-25] MEDS: MAG HYDROX/AL HYDROX/SIMETH 30 ML UNIT-DOSE CUP PO PRN (02:36)
[2022-01-25] MEDS: DIVALPROEX SODIUM 500 MG TABLET E.C. PO SCH ×3 (06:18→21:21)
[2022-01-25 06:38] VITALS: RESP 16
[2022-01-25] MEDS: INSULIN SLIDING SCALE (NOVOLOG) 1 VIAL SQ SCH ×4 (07:30→21:22)
[2022-01-25] MEDS ORDERED: risperiDONE 0.5 MG TABLET PO SCH (10:00)
[2022-01-25] MEDS: amLODIPine BESYLATE 10 MG TABLET (FP) PO SCH (10:17)
[2022-01-25] MEDS: SULFAMETHOXAZOLE/TRIMETHOPRIM 800MG/160MG D.S. TABLET PO SCH ×2 (10:17→21:21)
[2022-01-25] MEDS: PRENATAL VITAMINS W/ FOLIC ACID TABLET (FP) PO SCH (10:18)
[2022-01-25] MEDS: THIAMINE HCL 100 MG TABLET (FP) PO SCH (21:21)
[2022-01-25] MEDS ORDERED: risperiDONE 1 MG TABLET PO SCH (22:00)
[2022-01-25] MEDS ORDERED: BENZTROPINE MESYLATE 0.5 MG TABLET (FP) PO SCH (22:00)
[2022-01-25] MEDS ORDERED: PRAZOSIN HCL 1 MG CAPSULE PO SCH (22:00)
[2022-01-26] MEDS: MAG HYDROX/AL HYDROX/SIMETH 30 ML UNIT-DOSE CUP PO PRN (02:36)
[2022-01-26] MEDS: DIVALPROEX SODIUM 500 MG TABLET E.C. PO SCH (06:24)
[2022-01-26] MEDS: INSULIN SLIDING SCALE (NOVOLOG) 1 VIAL SQ SCH (06:25)
[2022-01-26 06:51] VITALS: TEMP 97.7
[2022-01-26 09:06] VITALS: BP 116/71; PULSE 98
[2022-01-26] MEDS: SULFAMETHOXAZOLE/TRIMETHOPRIM 800MG/160MG D.S. TABLET PO SCH (09:10)
[2022-01-26] MEDS: PRENATAL VITAMINS W/ FOLIC ACID TABLET (FP) PO SCH (09:11)
[2022-01-26] MEDS: amLODIPine BESYLATE 10 MG TABLET (FP) PO SCH (09:11)
== END 2022-01-26 09:30 | disposition home or self-care (01) | DRG 772 ==
LOC: YASAS 18:48 → Y3E 21:11
PROVIDERS: ADMIT Allergy & Immunology; ATTEND Psychiatry & Neurology Pain Medicine
PROC: HZ42ZZZ Group Counseling for Substance Abuse Treatment, Cognitive-Behavioral (ICD-10-PCS; principal; 2022-01-19)
DX: F10.20 Alcohol dependence, uncomplicated (principal); F14.20 Cocaine dependence, uncomplicated; F17.210 Nicotine dependence, cigarettes, uncomplicated; F20.9 Schizophrenia, unspecified; F31.9 Bipolar disorder, unspecified; F43.10 Post-traumatic stress disorder, unspecified; G40.909 Epilepsy, unspecified, not intractable, without status epilepticus; I10 Essential (primary) hypertension; J44.9 Chronic obstructive pulmonary disease, unspecified; H54.62 Unqualified visual loss, left eye, normal vision right eye; H91.92 Unspecified hearing loss, left ear; E11.9 Type 2 diabetes mellitus without complications; Z79.4 Long term (current) use of insulin; Z88.0 Allergy status to penicillin; Z88.6 Allergy status to analgesic agent; Z91.018 Allergy to other foods; Z91.199 Patient's noncompliance with other medical treatment and regimen due to unspecified reason
CPT/HCPCS: 36415; 71046-TC-FY; 80053; 80164; 81003; 82962; 83690; 83735; 85025; 87086; 93005; 93010; 99282-25; C9803-CS; J2794; U0003; U0005

== ENCOUNTER 2022-01-20 12:27 | Emergency (ER) | payer OTHER ==
[2022-01-20 12:38] VITALS: BP 144/89; PULSE 107; RESP 20; TEMP 98; BMI 16.7
[2022-01-20] MEDS ORDERED: DIVALPROEX SODIUM 500 MG TABLET E.C. PO ONE (14:19)
[2022-01-20] MEDS ORDERED: DIVALPROEX SODIUM 500 MG TABLET E.C. ONE (14:22)
[2022-01-20 15:28] LABS: PH,URINE 7.5 (5.0-8.0); URINE APPEARANCE CLEAR; URINE BILIRUBIN NEGATIVE (NEGATIVE); URINE COLOR YELLOW; URINE GLUCOSE (UA) NEGATIVE (NEGATIVE); URINE KETONE NEGATIVE (NEGATIVE); URINE LEUK ESTERASE NEGATIVE (NEGATIVE); URINE NITRITE NEGATIVE (NEGATIVE); URINE PROTEIN NEGATIVE (NEGATIVE)
== END 2022-01-20 14:46 | disposition short-term general hospital (02) ==
LOC: JER 12:27
DX: G40.89 Other seizures (principal); F19.10 Other psychoactive substance abuse, uncomplicated
CPT/HCPCS: 81003; 87086; 99285-25